=== PATIENT | male | born 1940 | race Asian ===

== ENCOUNTER 2017-04-04 03:48 | Emergency (ER) | payer OTHER ==
[~2017-04-04] VITALS: Ht 182.9 cm; Wt 88.0 kg
[~2017-04-04 03:48] MED LIST: ALPR0.5T99 PO; FENO50TA PO; HYDR10TA16 PO; LISI2.5T3 PO; METF850T PO; PROT40TA PO; REST30CA PO; SIMV80TA PO
[2017-04-04 03:50] VITALS: BP 135/65; PULSE 86; RESP 16; TEMP 98.8; O2SAT 96
[2017-04-04] MEDS ORDERED: OMEP20CA2 PO (04:12)
[2017-04-04] MEDS ORDERED: LISI-519 PO (04:13)
--- NOTE | 2017-04-04 04:28 | PD ---
HPI Chief Complaint: Fall Time Seen by Provider: 04:25 Travel History International Travel<30 days: No Contact w/Intl Traveler<30days: No Traveled to known affect area: No History of Present Illness HPI 77-year-old male presents to emergency department for evaluation of right hip pain. He states that he had a fall 8-9 days ago at home. He states that he did not have any significant pain at the time of the injury. Since then he has had progressive pain in his lower right SI joint into his right hip. He has had some pain in his right groin as well but he was told that this pain has been from bursitis after having bilateral hip replacement since by Dr. Menendez. He denies any acute bowel or bladder changes. She is pain is mild to moderate. Worse with movement and bending. He has an appointment to see his doctor later today but states that he wanted to come in tonight because he has had worsening pain to get an x-ray to rule out any hardware problems. No injury to his head, neck or back. PFSH Past Medical History Narrative Medical Diabetes, hypercholesterolemia, hypertension, stage IV kidney disease, gallstones Arthritis: Yes Blood Disorders: No Anxiety: Yes Cancer: No High Cholesterol: Yes Chemotherapy: No Diabetes: Yes (TAKES METFORMIN) Patient Takes Glucophage: Yes Diminished Hearing: No GERD: Yes Immune Disorder: No Neurologic: No Reproductive: No Respiratory: No Myocardial Infarction: Yes Radiation Therapy: No Tetanus Vaccination: Unknown Influenza Vaccination: Yes Past Surgical History Narrative Surgical Cholecystectomy Abdominal Surgery: Yes (CHOLECYSTECTOMY) Cholecystectomy: Yes Pacemaker: No Other Surgery: Yes (VEIN STRIPPING) Social History Alcohol Use: No Tobacco Use: No Substance Use: No Allergies-Medications (Allergen,Severity, Reaction): Coded Allergies: Latex (Verified Allergy, Mild, Itching, 04/04/17) Reported Meds & Prescriptions Reported Meds & Active Scripts Active Reported Lisinopril 5 Mg Tab 5 Mg PO DAILY Omeprazole 20 Mg Cap 20 Mg PO Simvastatin 80 mg (Simvastatin) 80 Mg Tab 40 Mg PO HS Tricor (Fenofibrate) 145 Mg Tab 160 Mg PO DAILY Lortab 10/500 (Acetaminophen/Hydrocodone Bitart) 10 Mg/500 Mg Tab 1 Tab PO Q4 PRN FOR PAIN Xanax (Alprazolam) 0.5 Mg Tab 0.5 Mg PO Q6 PRN Review of Systems Except as stated in HPI: all other systems reviewed are Neg Musculoskeletal: Positive: Arthralgias, Limited ROM, Pain (right hip) Physical Exam Narrative GENERAL: Well-developed, well-nourished in no apparent distress. Nontoxic appearing. HEAD: Normocephalic, atraumatic. EYES: Pupils equal round and reactive. Extraocular motions intact. No scleral icterus. No injection or drainage. ENT: Nose clear. Throat without erythema, tonsillar hypertrophy or exudate. Uvula midline. Airway patent. NECK: Trachea midline. Supple, nontender, moves head freely. No central bony tenderness or spasm. CARDIOVASCULAR: Regular rate and rhythm without murmurs, gallops, or rubs. RESPIRATORY: Clear to auscultation. Breath sounds equal bilaterally. No wheezes , rales, or rhonchi. GASTROINTESTINAL: Abdomen soft, non-tender, nondistended. No hepato-splenomegaly , or palpable masses. No guarding. EXTREMITIES: No clubbing, cyanosis, or edema. Patient has mild tenderness in the right SI joint into the right hip as well as over the greater trochanter. He has pain with internal/external rotation as well as abduction. There is no pain in the knee, ankle or foot. He has intact sensation with good distal pulses. Patient stands and ambulates freely. BACK: Nontender without deformity. No flank tenderness. NEUROLOGICAL: Awake, alert and oriented x 3 .Cranial nerves grossly intact. Motor and sensory grossly within normal limits. Normal speech. Data Data Last Documented VS Vital Signs Date Time Temp Pulse Resp B/P Pulse Ox O2 Delivery O2 Flow Rate FiO2 04/04/17 03:55 16 04/04/17 03:50 98.8 86 135/65 96 Room Air Orders Hip, Uni(Ap&Lat) W Ap Pelvis (04/04/17 04:00) MDM Medical Decision Making Medical Screen Exam Complete: Yes Emergency Medical Condition: Yes Medical Record Reviewed: Yes Interpretation(s) Right hip and pelvis: Bilateral hip replacements. No fracture or obvious hardware loosening. Differential Diagnosis MDM: High Differential diagnoses: Fracture, sprain, strain, dislocation, contusion, neurovascular injury Narrative Course X-rays are negative for bony injury. Patient states that he will talk to Dr. Callejas his afternoon as far as what he needs to take for his pain control. This is right hip pain, status post fall Diagnosis Primary Impression: right hip pain status post fall Patient Instructions: General Instructions Additional Instructions: Rest. Discussed with Dr. Callejas pain control. He may take your pain medication and muscle relaxer your prescribed earlier by Dr. Callejas. Return to the ER if any problems. Med/Other Pt SpecificInfo: No Change to Meds Disposition: 01 DISCHARGE HOME Condition: Stable Vin Ennis April 04, 2017 04:28
--- NOTE | 2017-04-04 04:40 | RADRPT ---
EXAM DATE/TIME: 04/04/2017 04:14 [facility] COMPARISON: No previous studies available for comparison. INDICATIONS : Right hip pain. MEDICAL HISTORY : None. SURGICAL HISTORY : Bilateral hip replacement. ENCOUNTER: Initial ACUITY: 1 week PAIN SCORE: 4/10 LOCATION: Right hip FINDINGS: AP views of the pelvis were obtained and demonstrate the patient is status post bilateral hip arthrop lasty. The femoral and acetabular components are intact. There is mild osteopenia with no acute fract ure or malalignment. There are radiation seed markers projected over the pelvis. CONCLUSION: 1. Status post bilateral hip arthroplasty with no acute fracture or malalignment. 2. Radiation seed markers project over the prostate. Damir Vieira MD on April 04, 2017 at 4:38 Board Certified Radiologist. This report was verified electronically.
== END 2017-04-04 06:18 | disposition home or self-care (01) ==
LOC: NEPK 03:48
DX: M25.551 Pain in right hip (principal); W19.XXXA Unspecified fall, initial encounter; Y92.009 Unspecified place in unspecified non-institutional (private) residence as the place of occurrence of the external cause
CPT/HCPCS: 73502; 99283

== ENCOUNTER 2017-05-28 10:45 | Observation (INO) | payer MEDICARE, OTHER ==
[~2017-05-28 10:45] MED LIST changes: +LISI-519 PO; -LISI2.5T3 PO; -METF850T PO; +OMEP20CA2 PO; -PROT40TA PO; -REST30CA PO
[2017-05-28 10:47] VITALS: BP 180/79; PULSE 87; RESP 17; TEMP 98.5; O2SAT 97
--- NOTE | 2017-05-28 11:01 | PD ---
HPI Chief Complaint: GI Complaint Time Seen by Provider: 11:01 Travel History International Travel<30 days: No Contact w/Intl Traveler<30days: No Traveled to known affect area: No History of Present Illness HPI 77-year-old male presents to the emergency Department with right flank pain for the past 24-48 hours. Patient states it started on his right posterior flank and is moved to the front. Patient has nausea but no vomiting. He was able to eat breakfast this morning. He states it is uncomfortable take a deep breath with increased discomfort in the right lower lung field/ upper abdominal on the right side. Patient states normal urination, with perhaps somewhat decreased flow. He denies dysuria. He denies fever, chills, or change in bowels. Patient did have his gallbladder out approximate 3 years ago. He has no cardiac history. Patient is not a significant drinker, having stopped drinking 20 years ago. Patient has no history of liver or pancreatic disease. Patient denies cough, shortness of breath, or specific chest pain. Pain is rated as a 10 over 10. It is not worse with food, but seems to be worse with movement. She has no history of kidney stones in the past. He is allergic to latex, but no medication allergies. PFSH Past Medical History Arthritis: Yes Blood Disorders: No Anxiety: Yes Cancer: No High Cholesterol: Yes Chemotherapy: No Diabetes: Yes Diminished Hearing: No GERD: Yes Immune Disorder: No Neurologic: No Reproductive: No Respiratory: No Myocardial Infarction: Yes Radiation Therapy: No Past Surgical History Abdominal Surgery: Yes (CHOLECYSTECTOMY) Cholecystectomy: Yes Pacemaker: No Other Surgery: Yes (VEIN STRIPPING) Social History Alcohol Use: No Tobacco Use: No Substance Use: No Allergies-Medications (Allergen,Severity, Reaction): Coded Allergies: Latex (Verified Allergy, Mild, Itching, 04/04/17) Reported Meds & Prescriptions Reported Meds & Active Scripts Active Reported Simvastatin 40 Mg Tab 40 Mg PO HS Lortab (Hydrocodone-Acetaminophen) 10-325 Mg Tab 1 Tab PO Q4H PRN Alprazolam 0.5 Mg Tab 0.5 Mg PO Q6H PRN Omeprazole 20 Mg Cap 20 Mg PO Review of Systems Except as stated in HPI: all other systems reviewed are Neg General / Constitutional: No: Fever, Chills Eyes: No: Visual changes HENT: No: Headaches Cardiovascular: No: Chest Pain or Discomfort, Palpitations, Irregular Rhythm, Tachycardia, Diaphoresis, Dyspnea on exertion Respiratory: No: Cough, Shortness of Breath, Wheezing Gastrointestinal: Positive: Nausea, Abdominal Pain, No: Vomiting, Diarrhea Genitourinary: Positive: Decreased Urinary Output, No: Urgency, Frequency, Dysuria Musculoskeletal: No: Pain Skin: No Rash Neurologic: No: Weakness Psychiatric: No: Depression Endocrine: No: Polydipsia Hematologic/Lymphatic: No: Easy Bruising Physical Exam Narrative GENERAL: Patient appears in mild to moderate distress. SKIN: Warm and dry. Normal color. Normal turgor. HEAD: Atraumatic. Normocephalic. EYES: Pupils equal and round. No scleral icterus. No injection or drainage. ENT: No nasal bleeding or discharge. Mucous membranes pink and moist. Pharynx is clear. Airway is patent. NECK: Trachea midline. Supple and nontender. Range of motion is full. CARDIOVASCULAR: Regular rate and rhythm. RESPIRATORY: No accessory muscle use. Clear to auscultation. Breath sounds equal bilaterally. GASTROINTESTINAL: Abdomen soft, mild nonspecific right upper quadrant tenderness with palpation. No point tenderness, nondistended. Hepatic and splenic margins not palpable. Patient has mild to moderate right CVA tenderness with percussion. MUSCULOSKELETAL: Extremities without clubbing, cyanosis, or edema. No obvious deformities. NEUROLOGICAL: Awake and alert. No obvious cranial nerve deficits. Motor grossly within normal limits. Five out of 5 muscle strength in the arms and legs. Normal speech. PSYCHIATRIC: Appropriate mood and affect; insight and judgment normal. Data Data Last Documented VS Vital Signs Date Time Temp Pulse Resp B/P Pulse Ox O2 Delivery O2 Flow Rate FiO2 05/28/17 12:38 98.5 113 22 137/81 99 Room Air Orders Basic Metabolic Panel (Bmp) (05/28/17 11:06) Complete Blood Count With Diff (05/28/17 11:06) Comprehensive Metabolic Panel (05/28/17 11:06) Lipase (05/28/17 11:06) Lactic Acid (05/28/17 11:06) Prothrombin Time / Inr (Pt) (05/28/17 11:06) Act Partial Throm Time (Ptt) (05/28/17 11:06) Urinalysis - C+S If Indicated (05/28/17 11:06) Ct Abd/Pel W/O Iv Contrast (05/28/17 11:06) Iv Access Insert/Monitor (05/28/17 11:06) Ecg Monitoring (05/28/17 11:06) Oximetry (05/28/17 11:06) NPO (05/28/17 11:06) Ondansetron Inj (Zofran Inj) (05/28/17 11:15) Sodium Chlor 0.9% 1000 Ml Inj (Ns 1000 M (05/28/17 11:06) Sodium Chloride 0.9% Flush (Ns Flush) (05/28/17 11:15) Electrocardiogram (05/28/17 11:06) Chest, Single Ap (05/28/17 11:06) Morphine Inj (Morphine Inj) (05/28/17 11:30) Ckmb (Isoenzyme) Profile (05/28/17 12:28) Troponin I (05/28/17 12:28) Hydromorphone Pf Inj (Dilaudid Pf Inj) (05/28/17 12:45) CKMB (05/28/17 11:45) CKMB% (05/28/17 11:45) Admit Order (Ed Use Only) (05/28/17 12:55) Consult Gastroenterology (05/28/17 ) Labs Laboratory Tests Test 05/28/17 05/28/17 11:45 12:30 White Blood Count 7.8 TH/MM3 Red Blood Count 5.13 MIL/MM3 Hemoglobin 14.2 GM/DL Hematocrit 43.0 % Mean Corpuscular Volume 83.9 FL Mean Corpuscular Hemoglobin 27.6 PG Mean Corpuscular Hemoglobin 32.9 % Concent Red Cell Distribution Width 14.4 % Platelet Count 195 TH/MM3 Mean Platelet Volume 7.1 FL Neutrophils (%) (Auto) 76.1 % Lymphocytes (%) (Auto) 17.9 % Monocytes (%) (Auto) 4.2 % Eosinophils (%) (Auto) 0.8 % Basophils (%) (Auto) 1.0 % Neutrophils # (Auto) 6.0 TH/MM3 Lymphocytes # (Auto) 1.4 TH/MM3 Monocytes # (Auto) 0.3 TH/MM3 Eosinophils # (Auto) 0.1 TH/MM3 Basophils # (Auto) 0.1 TH/MM3 CBC Comment AUTO DIFF Differential Comment AUTO DIFF CONFIRMED Platelet Estimate NORMAL Platelet Morphology Comment NORMAL Red Cell Morphology Comment NORMAL Prothrombin Time 10.9 SEC Prothromb Time International 1.0 RATIO Ratio Activated Partial 26.8 SEC Thromboplast Time Sodium Level 137 MEQ/L Potassium Level 4.3 MEQ/L Chloride Level 104 MEQ/L Carbon Dioxide Level 26.5 MEQ/L Anion Gap 7 MEQ/L Blood Urea Nitrogen 18 MG/DL Creatinine 1.79 MG/DL Estimat Glomerular Filtration 37 ML/MIN Rate Random Glucose 200 MG/DL Lactic Acid Level 2.6 mmol/L Calcium Level 9.2 MG/DL Total Bilirubin 1.5 MG/DL Aspartate Amino Transf 195 U/L (AST/SGOT) Alanine Aminotransferase 124 U/L (ALT/SGPT) Alkaline Phosphatase 102 U/L Total Creatine Kinase 104 U/L Creatine Kinase MB 1.6 NG/ML Troponin I LESS THAN 0.02 NG/ML Total Protein 7.8 GM/DL Albumin 3.4 GM/DL Lipase 427 U/L Urine Color YELLOW Urine Turbidity CLEAR Urine pH 5.5 Urine Specific [place] 1.011 Urine Protein 30 mg/dL Urine Glucose (UA) 70 mg/dL Urine Ketones NEG mg/dL Urine Occult Blood SMALL Urine Nitrite NEG Urine Bilirubin NEG Urine Urobilinogen LESS THAN 2.0 MG/DL Urine Leukocyte Esterase NEG Urine RBC 2 /hpf Urine WBC LESS THAN 1 /hpf Urine Squamous Epithelial <1 /hpf Cells Microscopic Urinalysis Comment CULT NOT INDICATED MDM Medical Decision Making Medical Screen Exam Complete: Yes Emergency Medical Condition: Yes Differential Diagnosis Right upper abdomen quadrant tenderness. Cardiac syndrome. Pancreatitis. Hepatitis. Biliary colic. Pneumonia. Narrative Course Patient is medically stable at time of exam. EKG and chest x-ray are ordered. Labs ordered including CBC, CMP, lipase, lactic acid, urinalysis, PT PTT and INR , cardiac panel. IV access is obtained patient is given 4 mg morphine IV as well as 4 mg Zofran IV. Patient is given thousand mL normal saline bolus. CT of the abdomen without oral or IV contrast is ordered. Chest x-ray was unremarkable. CT shows no acute findings per radiologist. Labs however show no significant white count. Coags are normal. Chemistries however show creatinine of 1.79 with an estimated GFR of 37 which is typical for the patient looking back. Lactic acid is elevated at 2.6 with a total bilirubin of 1.5. AST 195, 124. Lipase is elevated at 427. Patient is given 1 mg hydromorphone IV for pain after CT. Patient is discussed with Dr. Dumont who feels the patient would benefit from admission and GI consult. It is thought that he may need an ERCP. Call was placed to the hospitalist and the patient was discussed with Dr. Jenkins , who agreed to admit the patient. Consult was placed with the hop farmer. Diagnosis Primary Impression: Right upper quadrant pain Additional Impressions: Elevated LFTs Elevated lipase Admitting Information Admitting Physician Requests: Admit Condition: Stable Ugo Neumann May 28, 2017 11:01
[2017-05-28] MEDS ORDERED: SODIUM CHLOR 0.9% 1000 ML INJ 1,000 ML IV SCH (11:06)
[2017-05-28] MEDS ORDERED: SODIUM CHLORIDE 0.9% FLUSH 10 ML FLUSH IV FLUSH PRN ×2 (11:15→13:15)
[2017-05-28] MEDS ORDERED: ONDANSETRON HCL 4 MG/2 ML VIAL IVP ONE (11:15)
[2017-05-28] MEDS ORDERED: MORPHINE SULFATE 4 MG/ML INJ IV PUSH ONE (11:15)
--- NOTE | 2017-05-28 11:25 | RADRPT ---
EXAM DATE/TIME: 05/28/2017 11:04 [facility] COMPARISON: CHEST SINGLE AP, November 22, 2013, 12:44. INDICATIONS : Chest pain MEDICAL HISTORY : Diabetes mellitus type II. SURGICAL HISTORY : None. ENCOUNTER: Initial ACUITY: 1 day PAIN SCORE: 6/10 LOCATION: Bilateral chest FINDINGS: A single view of the chest demonstrates the lungs to be symmetrically aerated without evidence of mas s, infiltrate or effusion. The cardiomediastinal contours are unremarkable. Osseous structures are intact. CONCLUSION: Normal examination. Yayo Freeman MD on May 28, 2017 at 11:24 Board Certified Radiologist. This report was verified electronically.
[2017-05-28] MEDS ORDERED: MORPHINE SULFATE 8 MG/ML INJ IV PUSH ONE (11:30)
[2017-05-28] MEDS ORDERED: ALPR0.5T3 PO (11:59)
[2017-05-28] MEDS ORDERED: SIMV40TA PO (11:59)
[2017-05-28] MEDS ORDERED: HYDR-3535 PO (11:59)
[2017-05-28 12:08] LABS: BASOPHIL # 0.1 TH/MM3 (0-0.2); EOSINOPHIL # 0.1 TH/MM3 (0-0.4); EOSINOPHIL % 0.8 % (0.0-4.0); LYMPH % 17.9 % (9.0-44.0); LYMPHOCYTE # 1.4 TH/MM3 (1.0-4.8); MEAN CELL VOLUME 83.9 FL (80.0-100.0); MEAN CORPUSCULAR HEMOGLOBIN 27.6 PG (27.0-34.0); MEAN CORPUSCULAR HGB CONC 32.9 % (32.0-36.0); MONO % 4.2 % (0.0-8.0); NEUT % 76.1 % (16.0-70.0); PLATELET COUNT 195 TH/MM3 (150-450); RED BLOOD COUNT 5.13 MIL/MM3 (4.50-5.90); RED CELL DISTRIBUTION WIDTH 14.4 % (11.6-17.2); WHITE BLOOD COUNT 7.8 TH/MM3 (4.0-11.0)
[2017-05-28 12:16] LABS: APTT (PATIENT) 26.8 SEC (24.3-30.1); PROTHROMBIN TIME - PATIENT 10.9 SEC (9.8-11.6)
[2017-05-28 12:17] LABS: HEMO FLAGS AUTO DIFF
[2017-05-28 12:23] LABS: ANION GAP 7 MEQ/L (5-15); AST (GOT) 195 U/L (15-37); BICARBONATE 26.5 MEQ/L (21.0-32.0); BLOOD UREA NITROGEN 18 MG/DL (7-18); CHLORIDE 104 MEQ/L (98-107); GLOMERULAR FILTRATION RATE 37 ML/MIN (>89); POTASSIUM 4.3 MEQ/L (3.5-5.1); SODIUM (NA) 137 MEQ/L (136-145)
[2017-05-28 12:24] LABS: ALT (GPT) 124 U/L (12-78)
--- NOTE | 2017-05-28 12:24 | RADRPT ---
EXAM DATE/TIME: 05/28/2017 12:05 [facility] COMPARISON: No previous studies available for comparison. INDICATIONS : Right flank pain today. ORAL CONTRAST: No oral contrast ingested. RADIATION DOSE: 16.14 CTDIvol (mGy) MEDICAL HISTORY : diabetes SURGICAL HISTORY : Cholecystectomy. ENCOUNTER: Initial ACUITY: 1 day PAIN SCALE: 7/10 LOCATION: Right flank TECHNIQUE: Volumetric scanning of the abdomen and pelvis was performed. Using automated exposure control and ad justment of the mA and/or kV according to patient size, radiation dose was kept as low as reasonably achievable to obtain optimal diagnostic quality images. DICOM format image data is available electro nically for review and comparison. FINDINGS: LOWER LUNGS: Minimal posterior bibasilar atelectatic changes or scarring. No confluent infiltrate LIVER: Homogeneous density without lesion. There is no dilation of the biliary tree. Gallbladder is not vis ualized characteristic is a reported history of cholecystectomy. SPLEEN: Normal size without lesion. PANCREAS: Within normal limits. KIDNEYS: Normal in size and shape. There is no mass, stone, or hydronephrosis. ADRENAL GLANDS: Within normal limits. VASCULAR: There is no aortic aneurysm. BOWEL/MESENTERY: The stomach, small bowel, and colon demonstrate no acute abnormality. There is no free intraperitone al air or fluid. Mild diverticular disease of the sigmoid without diverticulitis. A small appendicoli th is identified at the appendiceal tip. There is no enlargement or periappendiceal stranding, howeve r. ABDOMINAL WALL: Within normal limits. RETROPERITONEUM: There is no lymphadenopathy. BLADDER: No wall thickening or mass. REPRODUCTIVE: A few prostatic seeds are seen in the prostate bed. INGUINAL: There is no lymphadenopathy or hernia. MUSCULOSKELETAL: Bilateral total hip arthroplasties. Degenerative changes in the thoracolumbar spine. Otherwise intact . CONCLUSION: 1. Mild diverticular disease of the sigmoid without diverticulitis. 2. Punctate appendicolith at the appendiceal tip with no CT findings of acute appendicitis. 3. Postsurgical changes including cholecystectomy and probable prostatic seeds. 4. Otherwise, no acute intraperitoneal or pelvic process to explain current clinical symptoms. Nish Orr MD on May 28, 2017 at 12:18 Board Certified Radiologist. This report was verified electronically.
[2017-05-28 12:26] LABS: ALKALINE PHOSPHATASE 102 U/L (45-117); TOTAL BILIRUBIN ADULT 1.5 MG/DL (0.2-1.0)
[2017-05-28 12:38] VITALS: BP 137/81; PULSE 113; RESP 22; TEMP 98.5; O2SAT 99
[2017-05-28 12:42] LABS: PLATELET ESTIMATE SMEAR NORMAL (NORMAL); PLATELET MORPHOLOGY NORMAL (NORMAL); SCAN/DIFF AUTO DIFF CONFIRMED
[2017-05-28] MEDS ORDERED: HYDROmorphone HCL PF 1 MG/ML VIAL IV PUSH ONE (12:45)
[2017-05-28 12:46] LABS: CREATINE KINASE 104 U/L (39-308)
[2017-05-28 12:52] LABS: BLOOD, URINE SMALL (NEG); COMMENT (UR) CULT NOT INDICATED; CULTURE IF INDICATED CULT NOT INDICATED; GLUCOSE,URINE 70 mg/dL (NEG); KETONE, URINE NEG (NEG); NITRITE,URINE NEG (NEG); PH, URINE 5.5 (5.0-8.5); SQUAMOUS EPITHELIAL CELL URINE <1 /hpf (0-5); URINE COLOR YELLOW (YELLW/STRAW)
[2017-05-28 12:59] LABS: CKMB 1.6 NG/ML (0.5-3.6)
[2017-05-28] MEDS ORDERED: MAGNESIUM HYDROXIDE SUSP 30 ML CUP PO PRN (13:15)
[2017-05-28] MEDS ORDERED: ACETAMINOPHEN 325 MG TAB PO PRN (13:15)
[2017-05-28] MEDS ORDERED: NALOXONE HCL 0.4 MG/ML AMP IV PRN (13:15)
[2017-05-28 14:12] LABS: AMPHETAMINE, URINE NEG (NEG); BARBITURATES, URINE NEG (NEG); COCAINE, URINE NEG (NEG)
--- NOTE | 2017-05-28 15:13 | HHI.HP ---
HPI Service [facility] Primary Care Physician Nancy Callejas MD Admission Diagnosis Abdominal Pain/Increased LFT'S/Increased Lipase Diagnoses: (1) Transaminitis (2) Hyperbilirubinemia (3) Right upper quadrant pain (4) Elevated lipase (5) Acute worsening of stage 3 chronic kidney disease (6) DM (diabetes mellitus) (7) HTN (hypertension) Chief Complaint: Right sided abdominal pain and generalized weakness Travel History International Travel<30 Days: No Contact w/Intl Traveler <30 Da: No Traveled to Known Affected Are: No History of Present Illness 77-year-old male for past medical history of prostate cancer, hypertension, hyperlipidemia, diabetes type 2 presented to the ED with acute worsening right sided flank pain rated 10/10 in intensity lasting up to 15 minutes and occasionally associated with nausea without any emesis. Patient states he first noticed the pain about 3 weeks ago, and it will come and go however worse this morning when he woke up. He recall an initial fall 3 weeks ago. Patient was seen by his PCP last week with secondary to a second fall episode advised patient to come off metformin. Patient also is no longer currently taking any BP med. Patient reports associated generalized weakness 2 weeks. He also noted worsening lightheadedness month denies any chest pain. He denies any hemoptysis, hematuria or GI bleed. Chest x-ray in the ED was negative and abdomen/pelvic CT could not explain patient's abdominal pain. Abnormal labs include elevated LFTs, T bili, lactic acid and lipase as well as creatinine. Review of Systems Except as stated in HPI: all other systems reviewed are Neg Past Family Social History Past Medical History 1. arthritis. 2. Anxiety. 3. Hypercholesteremia. 4. Diabetes. 5. Gastroesophageal reflux disease. 6. coronary artery disease. 7. history of prostate cancer. Past Surgical History left total hip arthroplasty Open Cholecystectomy vein stripping Reported Medications Simvastatin 40 Mg Tab 40 Mg PO HS Lortab (Hydrocodone-Acetaminophen) 10-325 Mg Tab 1 Tab PO Q4H PRN Alprazolam 0.5 Mg Tab 0.5 Mg PO Q6H PRN Omeprazole 20 Mg Cap 20 Mg PO Allergies: Coded Allergies: Latex (Verified Allergy, Mild, Itching, 04/04/17) Family History Mother had diabetes type 2 Social History Alcohol Use: No 30 years Tobacco Use: No 25 years Substance Use: No Physical Exam Vital Signs Vital Signs Date Time Temp Pulse Resp B/P Pulse Ox O2 Delivery O2 Flow Rate FiO2 05/28/17 12:38 98.5 113 22 137/81 99 Room Air 05/28/17 10:47 98.5 87 17 180/79 97 Physical Exam GENERAL: This is a well-nourished, well-developed patient, in no apparent distress. SKIN: No rashes, ecchymoses or lesions. Cool and dry. HEAD: Atraumatic. Normocephalic. No temporal or scalp tenderness. EYES: Pupils equal round and reactive. Extraocular motions intact. No scleral icterus. No injection or drainage. ENT: Nose without bleeding, purulent drainage or septal hematoma. Throat without erythema, tonsillar hypertrophy or exudate. Uvula midline. Airway patent. NECK: Trachea midline. No JVD or lymphadenopathy. Supple, nontender, no meningeal signs. CARDIOVASCULAR: Regular rate and rhythm without murmurs, gallops, or rubs. RESPIRATORY: Clear to auscultation. Breath sounds equal bilaterally. No wheezes , rales, or rhonchi. GASTROINTESTINAL: Abdomen soft, non-tender, nondistended. No hepato-splenomegaly , or palpable masses. No guarding. MUSCULOSKELETAL: Extremities without clubbing, cyanosis, or edema. No joint tenderness, effusion, or edema noted. No calf tenderness. Negative Homans sign bilaterally. NEUROLOGICAL: Awake and alert. Cranial nerves II through XII intact. Motor and sensory grossly within normal limits. Five out of 5 muscle strength in all muscle groups. Normal speech. Laboratory Laboratory Tests Test 05/28/17 05/28/17 11:45 12:30 White Blood Count 7.8 Red Blood Count 5.13 Hemoglobin 14.2 Hematocrit 43.0 Mean Corpuscular Volume 83.9 Mean Corpuscular Hemoglobin 27.6 Mean Corpuscular Hemoglobin 32.9 Concent Red Cell Distribution Width 14.4 Platelet Count 195 Mean Platelet Volume 7.1 Neutrophils (%) (Auto) 76.1 Lymphocytes (%) (Auto) 17.9 Monocytes (%) (Auto) 4.2 Eosinophils (%) (Auto) 0.8 Basophils (%) (Auto) 1.0 Neutrophils # (Auto) 6.0 Lymphocytes # (Auto) 1.4 Monocytes # (Auto) 0.3 Eosinophils # (Auto) 0.1 Basophils # (Auto) 0.1 CBC Comment AUTO DIFF Differential Comment AUTO DIFF CONFIRMED Platelet Estimate NORMAL Platelet Morphology Comment NORMAL Red Cell Morphology Comment NORMAL Prothrombin Time 10.9 Prothromb Time International 1.0 Ratio Activated Partial 26.8 Thromboplast Time Sodium Level 137 Potassium Level 4.3 Chloride Level 104 Carbon Dioxide Level 26.5 Anion Gap 7 Blood Urea Nitrogen 18 Creatinine 1.79 Estimat Glomerular Filtration 37 Rate Random Glucose 200 Lactic Acid Level 2.6 Calcium Level 9.2 Total Bilirubin 1.5 Aspartate Amino Transf 195 (AST/SGOT) Alanine Aminotransferase 124 (ALT/SGPT) Alkaline Phosphatase 102 Total Creatine Kinase 104 Creatine Kinase MB 1.6 Troponin I LESS THAN 0.02 Total Protein 7.8 Albumin 3.4 Lipase 427 Urine Color YELLOW Urine Turbidity CLEAR Urine pH 5.5 Urine Specific [place] 1.011 Urine Protein 30 Urine Glucose (UA) 70 Urine Ketones NEG Urine Occult Blood SMALL Urine Nitrite NEG Urine Bilirubin NEG Urine Urobilinogen LESS THAN 2.0 Urine Leukocyte Esterase NEG Urine RBC 2 Urine WBC LESS THAN 1 Urine Squamous Epithelial <1 Cells Microscopic Urinalysis Comment CULT NOT INDICATED Urine Opiates Screen POS Urine Barbiturates Screen NEG Urine Amphetamines Screen NEG Urine Benzodiazepines Screen POS Urine Cocaine Screen NEG Urine Cannabinoids Screen NEG Ethyl Alcohol Level LESS THAN 3 Result Diagram: 05/28/17 1145 05/28/17 1145 Imaging Last Impressions Chest X-Ray 05/28/17 1106 Signed Impressions: Service Date/Time: Sunday, May 28, 2017 11:04 - CONCLUSION: Normal examination. Yayo Freeman MD Abdomen/Pelvis CT 05/28/17 1106 Signed Impressions: Service Date/Time: Sunday, May 28, 2017 12:05 - CONCLUSION: 1. Mild diverticular disease of the sigmoid without diverticulitis. 2. Punctate appendicolith at the appendiceal tip with no CT findings of acute appendicitis. 3. Postsurgical changes including cholecystectomy and probable prostatic seeds. 4. Otherwise, no acute intraperitoneal or pelvic process to explain current clinical symptoms. Nish Orr MD Assessment and Plan Problem List: (1) Transaminitis ICD Code: R74.0 Status: Acute (2) Hyperbilirubinemia ICD Code: E80.6 Status: Acute (3) Acute worsening of stage 3 chronic kidney disease ICD Code: N18.3 Status: Acute (4) Elevated lipase ICD Code: R74.8 Status: Acute (5) Right upper quadrant pain ICD Code: R10.11 Status: Acute (6) DM (diabetes mellitus) ICD Code: E11.9 Status: Chronic (7) HTN (hypertension) ICD Code: I10 Status: Chronic (8) Hyperlipidemia ICD Code: E78.5 Status: Chronic Assessment and Plan 77-year-old man with Right sided abdominal pain CT abdomen noted and reviewed by me with mild diverticular disease of the sigmoid colon without diverticulitis, and no acute intraperitoneal or pelvic process to explain current clinical symptoms. Chest x-ray noted and reviewed by me without any evidence of acute pulmonary disease or fractureS LFTs and lipase mildly elevated Patient with previous open cholecystectomy Parenteral pain management accordingly Transaminitis Check hepatitis profile, UDS, alcohol level Hold statin which may be the culprit. Monitor LFTs Hyperbilirubinemia Patient status post open cholecystectomy years ago No evidence of CBD, however GI has been consulted Lactic acidosis Secondary to dehydration Repeat lactic acid Acute on chronic kidney disease stage III Gentle IV fluid hydration Monitor BUN and creatinine and avoid all nephrotoxic drugs Diabetes type 2 Currently not on any therapy per patient as metformin was discontinued by his PCP Check hemoglobin A1c Start insulin sliding scale with fingerstick blood glucose monitoring Elevated lipase CT abdomen without any evidence of pancreatitis Continue with IV fluid hydration Monitor lipase Global weakness PT consult to treat and eval DVT prophylaxis Bilateral SCDs Code Status Full code Discussed Condition With Patient, ED Javy Ashley MD May 28, 2017 15:13
[2017-05-28] MEDS ORDERED: GLUCAGON 1 MG/ML VIAL OTHER PRN (15:15)
[2017-05-28] MEDS ORDERED: DEXTROSE 50% IN WATER 50 ML VIAL(D50) IV PRN (15:15)
[2017-05-28] MEDS ORDERED: ENALAPRILAT 1.25 MG/ML VIAL IV PUSH PRN (15:30)
[2017-05-28 16:00] VITALS: BP 109/64; PULSE 106; RESP 18; TEMP 99.6; O2SAT 95
[2017-05-28] MEDS: INSULIN ASPART SUPPLEMENTAL SCALE SQ SCH ×2 (16:00→20:30)
[2017-05-28 20:20] VITALS: BP 116/63; PULSE 92; RESP 17; TEMP 99.3; O2SAT 97
[2017-05-28] MEDS: SODIUM CHLOR 0.9% 1000 ML INJ 1,000 ML IV SCH (20:50)
[2017-05-28] MEDS: SODIUM CHLORIDE 0.9% FLUSH 10 ML FLUSH IV FLUSH SCH (21:00)
[2017-05-28] MEDS: ALPRAZolam 0.5 MG TAB PO PRN (21:47)
[2017-05-29 00:20] VITALS: BP 115/60; PULSE 94; RESP 18; TEMP 99.4; O2SAT 97
[2017-05-29] MEDS: TEMAZEPAM 15 MG CAP PO PRN (00:26)
[2017-05-29] MEDS: ACETAMINOPHEN 325 MG TAB PO PRN ×2 (03:04→09:29)
[2017-05-29 04:20] VITALS: BP 117/58; PULSE 86; RESP 18; TEMP 99.4; O2SAT 95
[2017-05-29] MEDS: SODIUM CHLOR 0.9% 1000 ML INJ 1,000 ML IV SCH ×2 (05:33→21:37)
[2017-05-29] MEDS: INSULIN ASPART SUPPLEMENTAL SCALE SQ SCH ×4 (07:00→21:37)
[2017-05-29 07:41] LABS: BASOPHIL % 0.1 % (0.0-2.0); EOSINOPHIL # 0.1 TH/MM3 (0-0.4); EOSINOPHIL % 0.8 % (0.0-4.0); HEMATOCRIT 37.6 % (39.0-51.0); HEMO FLAGS DIFF FINAL; LYMPH % 12.3 % (9.0-44.0); LYMPHOCYTE # 1.3 TH/MM3 (1.0-4.8); MEAN CELL VOLUME 82.4 FL (80.0-100.0); MEAN CORPUSCULAR HEMOGLOBIN 27.9 PG (27.0-34.0); MEAN CORPUSCULAR HGB CONC 33.9 % (32.0-36.0); MONO % 8.6 % (0.0-8.0); NEUT % 78.2 % (16.0-70.0); PLATELET COUNT 154 TH/MM3 (150-450); RED BLOOD COUNT 4.57 MIL/MM3 (4.50-5.90); RED CELL DISTRIBUTION WIDTH 14.5 % (11.6-17.2); WHITE BLOOD COUNT 10.3 TH/MM3 (4.0-11.0)
[2017-05-29 08:00] VITALS: BP 121/63; PULSE 68; RESP 18; TEMP 97.5; O2SAT 97
[2017-05-29 08:35] LABS: ALKALINE PHOSPHATASE 90 U/L (45-117); ALT (GPT) 162 U/L (12-78); ANION GAP 7 MEQ/L (5-15); AST (GOT) 139 U/L (15-37); BLOOD UREA NITROGEN 15 MG/DL (7-18); CHLORIDE 105 MEQ/L (98-107); GLOMERULAR FILTRATION RATE 39 ML/MIN (>89); POTASSIUM 4.2 MEQ/L (3.5-5.1); SODIUM (NA) 137 MEQ/L (136-145)
[2017-05-29] MEDS: SODIUM CHLORIDE 0.9% FLUSH 10 ML FLUSH IV FLUSH SCH ×2 (09:00→21:37)
[2017-05-29] MEDS: ONDANSETRON HCL 4 MG/2 ML VIAL IVP PRN ×2 (09:30→17:08)
--- NOTE | 2017-05-29 09:43 | RADRPT ---
EXAM DATE/TIME: 05/29/2017 07:56 [facility] COMPARISON: No previous studies available for comparison. INDICATIONS : Increased lab values. MEDICAL HISTORY : Hypercholesterolemia. Gastroesophageal reflux disease. Myocardial infarction. Diabetes. Anxiety. Arth ritis. SURGICAL HISTORY : Cholecystectomy. Bilateral hip replacement. Vein stripping. ENCOUNTER: Initial ACUITY: 2 days PAIN SCORE: 3/10 LOCATION: Abdomen. MEASUREMENTS: LIVER: 16.0 cm length COMMON DUCT: 9 mm RIGHT KIDNEY: 10.3 x 5.2 x 5.6 cm SPLEEN: 8.4 cm length FINDINGS: LIVER: Mild to moderate diffuse intrahepatic ductal dilatation. Diffusely hyperechoic hepatic echogenicity w ithout focal mass or evidence of volume loss. COMMON DUCT: Common bile duct is mildly prominent measuring up to 9 mm. GALLBLADDER: Surgical absence. PANCREAS: The visualized portions are within normal limits. RIGHT KIDNEY: No hydronephrosis, stone or mass. SPLEEN: No focal lesion. CONCLUSION: 1. Status post cholecystectomy with mild extra and mild to moderate intrahepatic ductal dilatation. D uctal dilatation may be noted following cholecystectomy due to reservoir effect. The degree of intrah epatic ductal dilatation appears slightly out of proportion than expected. Further evaluation may be performed with CT exam, MRCP or ERCP as clinically warranted. 2. Mild hepatomegaly and increased hepatic echogenicity consistent with hepatic steatosis. Jules Chavez MD on May 29, 2017 at 9:36 Board Certified Radiologist. This report was verified electronically.
[2017-05-29] MEDS ORDERED: PNEUMOCOCCAL POLYVALENT INJ 25 MCG/0.5 ML SYR IM ONE (10:00)
[2017-05-29] MEDS: ALPRAZolam 0.5 MG TAB PO PRN ×2 (11:03→21:37)
[2017-05-29 12:00] VITALS: BP 139/70; PULSE 80; RESP 18; TEMP 97.6; O2SAT 97
--- NOTE | 2017-05-29 13:27 | EKG ---
Date Performed: 05/28/2017 Time Performed: 11:25:46 PTAGE: 77 years EKG: Sinus rhythm POSSIBLE RIGHT VENTRICULAR CONDUCTION DELAY BORDERLINE ECG Compared to prior tracing no significant change PREVIOUS TRACING : 11/22/2013 13.52 DOCTOR: Dallas Danielle Interpretating Date/Time 05/29/2017 13:24:00
--- NOTE | 2017-05-29 13:31 | HHI.PR ---
Subjective Remarks Follow-up abdominal pain 05/29/17-patient seen and examined, complained of right sided abdominal pain associated with nausea without any emesis. Currently afebrile and denies any shortness of breath Objective Vitals Vital Signs Date Time Temp Pulse Resp B/P Pulse Ox O2 Delivery O2 Flow Rate FiO2 05/29/17 12:00 97.6 80 18 139/70 97 05/29/17 08:00 97.5 68 18 121/63 97 05/29/17 04:20 99.4 86 18 117/58 95 05/29/17 00:20 99.4 94 18 115/60 97 05/28/17 20:20 99.3 92 17 116/63 97 05/28/17 16:00 99.6 106 18 109/64 95 I/O 05/28/17 05/28/17 05/28/17 05/29/17 05/29/17 05/29/17 07:00 15:00 23:00 07:00 15:00 23:00 Intake Total 240 ml 120 ml Output Total 400 ml Balance -160 ml 120 ml Intake Oral 240 ml 120 ml Output Urine Total 400 ml # Voids 1 2 # Bowel Movements 0 0 Result Diagram: 05/29/17 0659 05/29/17 0659 Imaging Last Impressions Liver Ultrasound 05/29/17 0000 Signed Impressions: Service Date/Time: Monday, May 29, 2017 07:56 - CONCLUSION: 1. Status post cholecystectomy with mild extra and mild to moderate intrahepatic ductal dilatation. Ductal dilatation may be noted following cholecystectomy due to reservoir effect. The degree of intrahepatic ductal dilatation appears slightly out of proportion than expected. Further evaluation may be performed with CT exam, MRCP or ERCP as clinically warranted. 2. Mild hepatomegaly and increased hepatic echogenicity consistent with hepatic steatosis. Jules Chavez MD Chest X-Ray 05/28/17 110 Signed Impressions: Service Date/Time: Sunday, May 28, 2017 11:04 - CONCLUSION: Normal examination. Yayo Freeman MD Abdomen/Pelvis CT 05/28/171105 Signed Impressions: Service Date/Time: Sunday, May 28, 2017 12:05 - CONCLUSION: 1. Mild diverticular disease of the sigmoid without diverticulitis. 2. Punctate appendicolith at the appendiceal tip with no CT findings of acute appendicitis. 3. Postsurgical changes including cholecystectomy and probable prostatic seeds. 4. Otherwise, no acute intraperitoneal or pelvic process to explain current clinical symptoms. Nish Orr MD Objective Remarks GENERAL: NAD SKIN: Warm and dry. HEAD: Normocephalic. EYES: No scleral icterus. No injection or drainage. NECK: Supple, trachea midline. No JVD or lymphadenopathy. CARDIOVASCULAR: Regular rate and rhythm without murmurs, gallops, or rubs. RESPIRATORY: Breath sounds equal bilaterally. No accessory muscle use. GASTROINTESTINAL: Abdomen soft, mildly tender RUQ, nondistended. MUSCULOSKELETAL: No cyanosis, or edema. BACK: Nontender without obvious deformity. No CVA tenderness. A/P Problem List: (1) Transaminitis ICD Code: R74.0 Status: Acute (2) Hyperbilirubinemia ICD Code: E80.6 Status: Acute (3) Right upper quadrant pain ICD Code: R10.11 Status: Acute (4) Elevated lipase ICD Code: R74.8 Status: Acute (5) Acute worsening of stage 3 chronic kidney disease ICD Code: N18.3 Status: Acute (6) DM (diabetes mellitus) ICD Code: E11.9 Status: Chronic (7) HTN (hypertension) ICD Code: I10 Status: Chronic Assessment and Plan 77-year-old man with Right sided abdominal pain CT abdomen with mild diverticular disease of the sigmoid colon without diverticulitis, and no acute intraperitoneal or pelvic process to explain current clinical symptoms. Chest x-ray without any evidence of acute pulmonary disease or fracture Liver ultrasound with finding of intrahepatic dilatation-patient may need ERCP GI consultation pending LFTs and lipase mildly elevated Patient with previous open cholecystectomy Parenteral pain management accordingly Transaminitis hepatitis profile negative, UDS, alcohol level Hold statin which may be the culprit. Monitor LFTs Hyperbilirubinemia Patient status post open cholecystectomy years ago No evidence of CBD, however GI has been consulted Lactic acidosis Secondary to dehydration Acute on chronic kidney disease stage III Gentle IV fluid hydration Monitor BUN and creatinine and avoid all nephrotoxic drugs Diabetes type 2 Currently not on any therapy per patient as metformin was discontinued by his PCP hemoglobin A1c pending Continue insulin sliding scale with fingerstick blood glucose monitoring Elevated lipase-resolved CT abdomen without any evidence of pancreatitis Continue with IV fluid hydration Global weakness PT consult to treat and eval DVT prophylaxis Bilateral SCD Javy Pickett MD May 29, 2017 13:31
--- NOTE | 2017-05-29 15:49 | PD.CONS ---
HPI History of Present Illness This is a 77 year old male with hx prostate ca, HTN, GERD, DM2 who presented with abd pain and n/v. 2 days ago he began experiencing RUQ pain radiating to his flank that was burning, stabbing pain. He also had n/v. Never had this pain before. he was found to elevated LFTs and mild elevation lipase at 427. CT showed appendicolith with no findings suggesting acute appendicitis; US showed intrahepatic dilatation slightly out of proportion than expected, hepatic steatosis. Pt has been more constipated in the last month. he denies blood in stool, tarry stool. he last had colonsocopy [address]y [address] Arshad that was normal, and EGD 1 y ago with finding of "acid". He does have GERD for which he takes zantac and it works well for him. He has had an open cholecystectomy. Denies ETOH. PFSH Past Medical History 1. arthritis. 2. Anxiety. 3. Hypercholesteremia. 4. Diabetes. 5. Gastroesophageal reflux disease. 6. coronary artery disease. 7. history of prostate cancer. Past Surgical History left total hip arthroplasty Open Cholecystectomy vein stripping Coded Allergies: Latex (Verified Allergy, Mild, Itching, 04/04/17) MRI PRECAUTION (Verified Adverse Reaction, Severe, STAPES IMPLANT, 05/28/17) PT STATES BILATERAL STAPES IMPLANTS/JLA 05/28/17 Family History Mother had diabetes type 2 Social History Alcohol Use: No 30 years Tobacco Use: No 25 years Substance Use: No Review of Systems Constitutional: DENIES: Fever Ears, nose, mouth, throat: DENIES: Throat pain Respiratory: DENIES: Hemoptysis Cardiovascular: DENIES: Chest pain Gastrointestinal: COMPLAINS OF: Abdominal pain, Constipation, Nausea, Vomiting , DENIES: Black stools, Bloody stools, Diarrhea, Hematemesis Genitourinary: DENIES: Hematuria Musculoskeletal: DENIES: Joint Swelling Integumentary: DENIES: Rash Hematologic/lymphatic: COMPLAINS OF: Bruising Neurologic: DENIES: Headache Psychiatric: DENIES: Confusion GI Exam Vitals I&O Vital Signs Date Time Temp Pulse Resp B/P Pulse Ox O2 Delivery O2 Flow Rate FiO2 05/29/17 12:00 97.6 80 18 139/70 97 05/29/17 08:00 97.5 68 18 121/63 97 05/29/17 04:20 99.4 86 18 117/58 95 05/29/17 00:20 99.4 94 18 115/60 97 05/28/17 20:20 99.3 92 17 116/63 97 05/28/17 16:00 99.6 106 18 109/64 95 I/O 05/28/17 05/28/17 05/28/17 05/29/17 05/29/17 05/29/17 07:00 15:00 23:00 07:00 15:00 23:00 Intake Total 240 ml 120 ml Output Total 400 ml Balance -160 ml 120 ml Intake Oral 240 ml 120 ml Output Urine Total 400 ml # Voids 1 2 # Bowel Movements 0 0 Imaging Last Impressions Liver Ultrasound 05/29/17 0000 Signed Impressions: Service Date/Time: Monday, May 29, 2017 07:56 - CONCLUSION: 1. Status post cholecystectomy with mild extra and mild to moderate intrahepatic ductal dilatation. Ductal dilatation may be noted following cholecystectomy due to reservoir effect. The degree of intrahepatic ductal dilatation appears slightly out of proportion than expected. Further evaluation may be performed with CT exam, MRCP or ERCP as clinically warranted. 2. Mild hepatomegaly and increased hepatic echogenicity consistent with hepatic steatosis. Jules Chavez MD Chest X-Ray 05/28/17 1106 Signed Impressions: Service Date/Time: Sunday, May 28, 2017 11:04 - CONCLUSION: Normal examination. Yayo Freeman MD Abdomen/Pelvis CT 05/28/17 1106 Signed Impressions: Service Date/Time: Sunday, May 28, 2017 12:05 - CONCLUSION: 1. Mild diverticular disease of the sigmoid without diverticulitis. 2. Punctate appendicolith at the appendiceal tip with no CT findings of acute appendicitis. 3. Postsurgical changes including cholecystectomy and probable prostatic seeds. 4. Otherwise, no acute intraperitoneal or pelvic process to explain current clinical symptoms. Nish Orr MD Laboratory Test 05/28/17 05/29/17 19:06 06:59 Lactic Acid Level 2.2 mmol/L Hepatitis A IgM Antibody NEGATIVE Hepatitis B Surface Antigen NEGATIVE Hepatitis B Core IgM Antibody NEGATIVE Hepatitis C Antibody NEGATIVE White Blood Count 10.3 TH/MM3 Red Blood Count 4.57 MIL/MM3 Hemoglobin 12.8 GM/DL Hematocrit 37.6 % Mean Corpuscular Volume 82.4 FL Mean Corpuscular Hemoglobin 27.9 PG Mean Corpuscular Hemoglobin 33.9 % Concent Red Cell Distribution Width 14.5 % Platelet Count 154 TH/MM3 Mean Platelet Volume 7.4 FL Neutrophils (%) (Auto) 78.2 % Lymphocytes (%) (Auto) 12.3 % Monocytes (%) (Auto) 8.6 % Eosinophils (%) (Auto) 0.8 % Basophils (%) (Auto) 0.1 % Neutrophils # (Auto) 8.0 TH/MM3 Lymphocytes # (Auto) 1.3 TH/MM3 Monocytes # (Auto) 0.9 TH/MM3 Eosinophils # (Auto) 0.1 TH/MM3 Basophils # (Auto) 0.0 TH/MM3 CBC Comment DIFF FINAL Differential Comment Sodium Level 137 MEQ/L Potassium Level 4.2 MEQ/L Chloride Level 105 MEQ/L Carbon Dioxide Level 25.0 MEQ/L Anion Gap 7 MEQ/L Blood Urea Nitrogen 15 MG/DL Creatinine 1.71 MG/DL Estimat Glomerular Filtration 39 ML/MIN Rate Random Glucose 122 MG/DL Calcium Level 8.5 MG/DL Total Bilirubin 4.0 MG/DL Direct Bilirubin 2.7 MG/DL Aspartate Amino Transf 139 U/L (AST/SGOT) Alanine Aminotransferase 162 U/L (ALT/SGPT) Alkaline Phosphatase 90 U/L Total Protein 6.3 GM/DL Albumin 2.7 GM/DL Lipase 302 U/L Physical Examination HEENT: PERRLt; normocephalic; atraumatic; no jaundice. CHEST: CTA CARDIAC: RRR ABDOMEN: Soft, nondistended, RUQ & epigastric TTP; no hepatosplenomegaly; bowel sounds are present in all four quadrants. EXTREMITIES: No clubbing, cyanosis, or edema. SKIN: Normal; no rash; no jaundice. MASTER MERCHANDISER: No focal deficits; alert and oriented times three. Assessment and Plan Plan ASSESSMENT - RUQ pain, n/v - onset 2d ago. hx open cholecystectomy. CT 05-28-17 showed appendicolith but no findings suggesting acute appendicitis. US 05-29-17--> 1. Status post cholecystectomy with mild extra and mild to moderate intrahepatic ductal dilatation. Ductal dilatation may be noted following cholecystectomy due to reservoir effect. The degree of intrahepatic ductal dilatation appears slightly out of proportion than expected. Further evaluation may be performed with CT exam, MRCP or ERCP as clinically warranted. 2. Mild hepatomegaly and increased hepatic echogenicity consistent with hepatic steatosis. CBD 9mm could be obstruction. pt cannot have MRCP. - elevated LFTs - on admission AST 195, ALT 124, ALP 102, tbil 1.5. Bili has gone up to 4.0. fatty liver per CT. CT as above, noting possibly more intrahepatic dilatation than to be expected s/p coby. hep panel neg. - elevated lipase - 427 on admission, down to 302. could be from vomiting. - GERD - pt takes PLAN - famotidine - ERCP - obtain consents - clear liquid diet - NPO after midnight - monitor labs - supportive care - further recommendations to follow This pt seen by myself and Dr Pearson and this note is written on his behalf Devora Alarcon May 29, 2017 3:49 pm
[2017-05-29 16:00] VITALS: BP 155/72; PULSE 65; RESP 18; TEMP 98.1; O2SAT 97
[2017-05-29 17:00] LABS: HEMOGLOBIN A1a 0.9 %; HEMOGLOBIN A1b 0.6 %; HEMOGLOBIN Ao 54.8 %; HEMOGLOBIN F 0.9 %; HEMOGLOBIN LA1C 1.3 %; HEMOGLOBIN P3 2.6 %
[2017-05-29 19:00] VITALS: BP 140/77; PULSE 72; RESP 17; TEMP 98.6; O2SAT 97
[2017-05-29] MEDS: FAMOTIDINE 20 MG TAB PO SCH (21:37)
[2017-05-30] VITALS: BP 157/87; PULSE 73; RESP 16; TEMP 98.6; O2SAT 99
[2017-05-30] MEDS: TEMAZEPAM 15 MG CAP PO PRN (00:14)
[2017-05-30] MEDS ORDERED: SODIUM CHLORID 0.9% 500 ML IV PRN (03:15)
[2017-05-30] MEDS ORDERED: LACTATED RINGER'S 1000 ML IV PRN (03:15)
[2017-05-30] MEDS ORDERED: CHLORHEXIDINE GLUCONATE 2 % 1 PACK (2 CLOTHS) TOPICAL PRN (03:15)
[2017-05-30] MEDS ORDERED: POVIDONE IODINE 5% (ANTISEPSIS KIT) 4 APPLICATIONS EACH NARE PRN (03:15)
[2017-05-30 04:00] VITALS: BP 142/77; PULSE 69; RESP 16; TEMP 97.2; O2SAT 96
[2017-05-30] MEDS: ACETAMINOPHEN 325 MG TAB PO PRN ×2 (05:01→20:41)
[2017-05-30] MEDS: ONDANSETRON HCL 4 MG/2 ML VIAL IVP PRN ×2 (05:01→20:42)
[2017-05-30] MEDS: INSULIN ASPART SUPPLEMENTAL SCALE SQ SCH ×4 (06:03→20:42)
[2017-05-30 07:46] VITALS: BP 139/76; PULSE 75; RESP 20; TEMP 97.5; O2SAT 98
[2017-05-30 07:54] LABS: INDIRECT BILIRUBIN 0.8 MG/DL (0.0-0.8); TOTAL BILIRUBIN ADULT 1.5 MG/DL (0.2-1.0)
[2017-05-30] MEDS: FAMOTIDINE 20 MG TAB PO SCH ×3 (08:26→20:41)
[2017-05-30] MEDS: SODIUM CHLORIDE 0.9% FLUSH 10 ML FLUSH IV FLUSH SCH ×2 (09:00→20:42)
[2017-05-30] MEDS: SODIUM CHLOR 0.9% 1000 ML INJ 1,000 ML IV SCH (10:09)
--- NOTE | 2017-05-30 11:45 | HHI.GIFU ---
Subjective Remarks Pt resting in bed in no apparent distress. says his right side pain comes and goes. nauseous, asking for water. Objective Vitals I&O Vital Signs Date Time Temp Pulse Resp B/P Pulse Ox O2 Delivery O2 Flow Rate FiO2 05/30/17 07:46 97.5 75 20 139/76 98 05/30/17 04:00 97.2 69 16 142/77 96 05/30/17 00:00 98.6 73 16 157/87 99 05/29/17 19:11 Room Air 05/29/17 19:00 98.6 72 17 140/77 97 05/29/17 16:00 98.1 65 18 155/72 97 05/29/17 12:00 97.6 80 18 139/70 97 I/O 05/29/17 05/29/17 05/29/17 05/30/17 05/30/17 05/30/17 07:00 15:00 23:00 07:00 15:00 23:00 Intake Total 120 ml 960 ml 960 ml 958 ml Output Total 500 ml Balance 120 ml 960 ml 460 ml 958 ml Intake Oral 120 ml 960 ml 960 ml 450 ml IV Total 508 ml Output Urine Total 500 ml # Voids 2 2 3 # Bowel Movements 0 1 0 0 Laboratory Laboratory Tests Test 05/30/17 05:00 Total Bilirubin 1.5 Direct Bilirubin 0.7 Indirect Bilirubin 0.8 Aspartate Amino Transf 91 (AST/SGOT) Alanine Aminotransferase 128 (ALT/SGPT) Alkaline Phosphatase 109 Total Protein 7.0 Albumin 2.6 Imaging Last Impressions Liver Ultrasound 05/29/17 0000 Signed Impressions: Service Date/Time: Monday, May 29, 2017 07:56 - CONCLUSION: 1. Status post cholecystectomy with mild extra and mild to moderate intrahepatic ductal dilatation. Ductal dilatation may be noted following cholecystectomy due to reservoir effect. The degree of intrahepatic ductal dilatation appears slightly out of proportion than expected. Further evaluation may be performed with CT exam, MRCP or ERCP as clinically warranted. 2. Mild hepatomegaly and increased hepatic echogenicity consistent with hepatic steatosis. Jules Chavez MD Chest X-Ray 05/28/17 1106 Signed Impressions: Service Date/Time: Sunday, May 28, 2017 11:04 - CONCLUSION: Normal examination. Yayo Freeman MD Abdomen/Pelvis CT 05/28/17 1106 Signed Impressions: Service Date/Time: Sunday, May 28, 2017 12:05 - CONCLUSION: 1. Mild diverticular disease of the sigmoid without diverticulitis. 2. Punctate appendicolith at the appendiceal tip with no CT findings of acute appendicitis. 3. Postsurgical changes including cholecystectomy and probable prostatic seeds. 4. Otherwise, no acute intraperitoneal or pelvic process to explain current clinical symptoms. Nish Orr MD Physical Exam HEENT: PERRL; normocephalic; atraumatic; no jaundice. CHEST: CTA CARDIAC: RRR ABDOMEN: Soft, nondistended, right mid abdominal pain; no hepatosplenomegaly; bowel sounds are present in all four quadrants. EXTREMITIES: No clubbing, cyanosis, or edema. SKIN: Normal; no rash; no jaundice. JAIL GUARD: No focal deficits; alert and oriented times three. Assessment and Plan Plan ASSESSMENT - RUQ pain, n/v - onset 2d ago. hx open cholecystectomy. CT 05-28-17 showed appendicolith but no findings suggesting acute appendicitis. US 05-29-17--> 1. Status post cholecystectomy with mild extra and mild to moderate intrahepatic ductal dilatation. Ductal dilatation may be noted following cholecystectomy due to reservoir effect. The degree of intrahepatic ductal dilatation appears slightly out of proportion than expected. Further evaluation may be performed with CT exam, MRCP or ERCP as clinically warranted. 2. Mild hepatomegaly and increased hepatic echogenicity consistent with hepatic steatosis. CBD 9mm could be obstruction. pt cannot have MRCP. - elevated LFTs - on admission AST 195, ALT 124, ALP 102, tbil 1.5. Bili has gone up to 4.0. fatty liver per CT. CT as above, noting possibly more intrahepatic dilatation than to be expected s/p coby. hep panel neg. - elevated lipase - 427 on admission, down to 302. could be from vomiting. - GERD - pt takes zantac at home PLAN - famotidine - ERCP tomorrow - clear liquid diet - NPO after midnight - monitor labs - supportive care - further recommendations to follow This pt seen by myself and Dr Pearson and this note is written on his behalf Devora Alarcon [facility] May 30, 2017 11:45
[2017-05-30] MEDS: ALPRAZolam 0.5 MG TAB PO PRN ×2 (11:51→21:46)
[2017-05-30 12:00] VITALS: BP 140/72; PULSE 64; RESP 18; TEMP 98; O2SAT 99
--- NOTE | 2017-05-30 12:33 | HHI.PR ---
Subjective Remarks Follow-up abdominal pain 05/29/17-patient seen and examined, complained of right sided abdominal pain associated with nausea without any emesis. Currently afebrile and denies any shortness of breath 05/30/17-patient seen and examined, still complaining of right upper quadrant pain Objective Vitals Vital Signs Date Time Temp Pulse Resp B/P Pulse Ox O2 Delivery O2 Flow Rate FiO2 05/30/17 07:46 97.5 75 20 139/76 98 05/30/17 04:00 97.2 69 16 142/77 96 05/30/17 00:00 98.6 73 16 157/87 99 05/29/17 19:11 Room Air 05/29/17 19:00 98.6 72 17 140/77 97 05/29/17 16:00 98.1 65 18 155/72 97 I/O 05/29/17 05/29/17 05/29/17 05/30/17 05/30/17 05/30/17 07:00 15:00 23:00 07:00 15:00 23:00 Intake Total 120 ml 960 ml 960 ml 958 ml Output Total 500 ml Balance 120 ml 960 ml 460 ml 958 ml Intake Oral 120 ml 960 ml 960 ml 450 ml IV Total 508 ml Output Urine Total 500 ml # Voids 2 2 3 # Bowel Movements 0 1 0 0 Result Diagram: 05/29/1759 05/29/1759 Objective Remarks GENERAL: NAD SKIN: Warm and dry. HEAD: Normocephalic. EYES: No scleral icterus. No injection or drainage. NECK: Supple, trachea midline. No JVD or lymphadenopathy. CARDIOVASCULAR: Regular rate and rhythm without murmurs, gallops, or rubs. RESPIRATORY: Breath sounds equal bilaterally. No accessory muscle use. GASTROINTESTINAL: Abdomen soft, mildly tender RUQ, nondistended. MUSCULOSKELETAL: No cyanosis, or edema. BACK: Nontender without obvious deformity. No CVA tenderness. A/P Problem List: (1) Transaminitis ICD Code: R74.0 Status: Acute (2) Hyperbilirubinemia ICD Code: E80.6 Status: Acute (3) Right upper quadrant pain ICD Code: R10.11 Status: Acute (4) Elevated lipase ICD Code: R74.8 Status: Acute (5) Acute worsening of stage 3 chronic kidney disease ICD Code: N18.3 Status: Acute (6) DM (diabetes mellitus) ICD Code: E11.9 Status: Chronic (7) HTN (hypertension) ICD Code: I10 Status: Chronic Assessment and Plan 77-year-old man with Right sided abdominal pain CT abdomen with mild diverticular disease of the sigmoid colon without diverticulitis, and no acute intraperitoneal or pelvic process to explain current clinical symptoms. Chest x-ray without any evidence of acute pulmonary disease or fracture Liver ultrasound with finding of intrahepatic dilatation-patient will need ERCP 05/31/17 GI consultation pending LFTs and lipase mildly elevated Patient with previous open cholecystectomy Parenteral pain management accordingly Transaminitis hepatitis profile negative, UDS, alcohol level Hold statin which may be the culprit. Monitor LFTs Hyperbilirubinemia Patient status post open cholecystectomy years ago No evidence of CBD, however GI has been consulted Lactic acidosis Secondary to dehydration Acute on chronic kidney disease stage III Gentle IV fluid hydration Monitor BUN and creatinine and avoid all nephrotoxic drugs Diabetes type 2 Currently not on any therapy per patient as metformin was discontinued by his PCP hemoglobin A1c pending Continue insulin sliding scale with fingerstick blood glucose monitoring Elevated lipase-resolved CT abdomen without any evidence of pancreatitis Continue with IV fluid hydration Global weakness PT consult to treat and eval DVT prophylaxis Bilateral SCD Javy Pickett MD May 30, 2017 12:32
[2017-05-30 16:00] VITALS: BP 140/72; PULSE 64; RESP 18; TEMP 97.7; O2SAT 99
[2017-05-30 20:30] VITALS: BP 148/77; PULSE 62; RESP 18; TEMP 98.5; O2SAT 97
[2017-05-31] MEDS: TEMAZEPAM 15 MG CAP PO PRN ×2 (00:21→23:57)
[2017-05-31] MEDS: SODIUM CHLOR 0.9% 1000 ML INJ 1,000 ML IV SCH ×2 (00:21→08:54)
[2017-05-31] MEDS: INSULIN ASPART SUPPLEMENTAL SCALE SQ SCH ×4 (06:26→20:19)
[2017-05-31] MEDS: ACETAMINOPHEN 325 MG TAB PO PRN ×3 (06:27→23:57)
[2017-05-31] MEDS: FAMOTIDINE 20 MG TAB PO SCH (07:00)
[2017-05-31 07:29] VITALS: BP 122/69; PULSE 64; RESP 18; TEMP 97.9; O2SAT 98
[2017-05-31] MEDS: SODIUM CHLORIDE 0.9% FLUSH 10 ML FLUSH IV FLUSH SCH ×2 (07:36→20:19)
--- NOTE | 2017-05-31 11:52 | HHI.PR ---
Subjective Remarks Follow-up abdominal pain 05/29/17-patient seen and examined, complained of right sided abdominal pain associated with nausea without any emesis. Currently afebrile and denies any shortness of breath 05/30/17-patient seen and examined, still complaining of right upper quadrant pain 05/31/17-patient seen and examined, currently nothing by mouth pending the ERCP. Patient still with right upper quadrant pain. Nausea resolved. Objective Vitals Vital Signs Date Time Temp Pulse Resp B/P Pulse Ox O2 Delivery O2 Flow Rate FiO2 05/31/17 07:51 Room Air 05/31/17 07:29 97.9 64 18 122/69 98 05/30/17 20:30 98.5 62 18 148/77 97 05/30/17 19:07 Room Air 05/30/17 16:00 97.7 64 18 140/72 99 05/30/17 12:00 98.0 64 18 140/72 99 I/O 05/30/17 05/30/17 05/30/17 05/31/17 05/31/17 05/31/17 07:00 15:00 23:00 07:00 15:00 23:00 Intake Total 958 ml 480 ml 720 ml 1053 ml 408 ml Output Total 800 ml 600 ml 400 ml Balance 958 ml -320 ml 120 ml 653 ml 408 ml Intake Oral 450 ml 480 ml 720 ml 480 ml IV Total 508 ml 573 ml 408 ml Output Urine Total 800 ml 600 ml 400 ml # Voids 3 2 # Bowel Movements 0 0 0 0 Result Diagram: 05/29/17 0659 05/29/17 0659 Imaging Last Impressions Liver Ultrasound 05/29/17 0000 Signed Impressions: Service Date/Time: Monday, May 29, 2017 07:56 - CONCLUSION: 1. Status post cholecystectomy with mild extra and mild to moderate intrahepatic ductal dilatation. Ductal dilatation may be noted following cholecystectomy due to reservoir effect. The degree of intrahepatic ductal dilatation appears slightly out of proportion than expected. Further evaluation may be performed with CT exam, MRCP or ERCP as clinically warranted. 2. Mild hepatomegaly and increased hepatic echogenicity consistent with hepatic steatosis. Jules Chavez MD Chest X-Ray 05/28/17 1106 Signed Impressions: Service Date/Time: Sunday, May 28, 2017 11:04 - CONCLUSION: Normal examination. Yayo Freeman MD Abdomen/Pelvis CT 05/28/17 1106 Signed Impressions: Service Date/Time: Sunday, May 28, 2017 12:05 - CONCLUSION: 1. Mild diverticular disease of the sigmoid without diverticulitis. 2. Punctate appendicolith at the appendiceal tip with no CT findings of acute appendicitis. 3. Postsurgical changes including cholecystectomy and probable prostatic seeds. 4. Otherwise, no acute intraperitoneal or pelvic process to explain current clinical symptoms. Nish Orr MD Objective Remarks GENERAL: NAD SKIN: Warm and dry. HEAD: Normocephalic. EYES: No scleral icterus. No injection or drainage. NECK: Supple, trachea midline. No JVD or lymphadenopathy. CARDIOVASCULAR: Regular rate and rhythm without murmurs, gallops, or rubs. RESPIRATORY: Breath sounds equal bilaterally. No accessory muscle use. GASTROINTESTINAL: Abdomen soft, mildly tender RUQ, nondistended. MUSCULOSKELETAL: No cyanosis, or edema. BACK: Nontender without obvious deformity. No CVA tenderness. A/P Problem List: (1) Transaminitis ICD Code: R74.0 Status: Acute (2) Hyperbilirubinemia ICD Code: E80.6 Status: Acute (3) Right upper quadrant pain ICD Code: R10.11 Status: Acute (4) Elevated lipase ICD Code: R74.8 Status: Acute (5) Acute worsening of stage 3 chronic kidney disease ICD Code: N18.3 Status: Acute (6) DM (diabetes mellitus) ICD Code: E11.9 Status: Chronic (7) HTN (hypertension) ICD Code: I10 Status: Chronic Assessment and Plan 77-year-old man with Right sided abdominal pain CT abdomen with mild diverticular disease of the sigmoid colon without diverticulitis, and no acute intraperitoneal or pelvic process to explain current clinical symptoms. Chest x-ray without any evidence of acute pulmonary disease or fracture Liver ultrasound with finding of intrahepatic dilatation-Plan for ERCP today 05/31/17 GI consultation appreciated Patient with previous open cholecystectomy Parenteral pain management accordingly Transaminitis hepatitis profile negative, UDS, alcohol level Hold statin which may be the culprit. Monitor LFTs Hyperbilirubinemia-improving Patient status post open cholecystectomy years ago No evidence of CBD, however GI has been consulted Lactic acidosis Secondary to dehydration Acute on chronic kidney disease stage III Gentle IV fluid hydration Monitor BUN and creatinine and avoid all nephrotoxic drugs Diabetes type 2 Currently not on any therapy per patient as metformin was discontinued by his PCP hemoglobin A1c 7.3 Continue insulin sliding scale with fingerstick blood glucose monitoring Elevated lipase-resolved CT abdomen without any evidence of pancreatitis Global weakness PT to treat and eval DVT prophylaxis Bilateral SCD Javy Pickett MD May 31, 2017 11:52
[2017-05-31 12:00] VITALS: BP 140/75; PULSE 62; RESP 18; TEMP 98; O2SAT 98
[2017-05-31] MEDS ORDERED: PROPOFOL 200 MG/20 ML AMP IV ONE (15:42)
--- NOTE | 2017-05-31 15:49 | GIPROC ---
[facility] [address] [facility]. [facility], [address] ERCP PROCEDURE REPORT EXAM DATE: 05/31/2017 PATIENT NAME: Marya Naylor MR #: [id number] BIRTHDATE: 1940 ATTENDING: [place] MD ORDER #: [id number] EXECUTIVE PRODUCER PROMOS: Teodoro Harman and Yolanda Hardin STATUS: inpatient INDICATIONS: The patient is a 77 yr old male here for an ERCP due to abdominal pain of suspected biliary origin, abnormal abdominal CT, and abnormal liver function test PROCEDURE PERFORMED: ERCP with biopsy MEDICATIONS: Per Anesthesia and None. CONSENT: The patient understands the risks and benefits of the procedure and understands that these risks include, but are not limited to: sedation, allergic reaction, infection, perforation and/or bleeding. Alternative means of evaluation and treatment include, among others: physical exam, x-rays, and/or surgical intervention. The patient elects to proceed with this endoscopic procedure. medical equipment was checked for proper function. Hand hygiene and appropriate measures for infection prevention was taken. After the risks, benefits and alternatives of the procedure were thoroughly explained, Informed was verified, confirmed and timeout was successfully executed by the treatment team. With the patient in left semi-prone position, medications were administered intravenously.The Pentax [id number] was passed from the mouth into the esophagus and further advanced from the esophagus into the stomach. From stomach scope was directed to the second portion of the duodenum. Major papilla was aligned with the duodenoscope. The scope position was confirmed fluoroscopically. Rest of the findings/therapeutics are given below. The scope was then completely withdrawn from the patient and the procedure completed. The pulse, BP, and O2 saturation were monitored and documented by the physician and the nursing staff throughout the entire procedure. The patient was cared for as planned according to standard protocol. The patient was then discharged to recovery in stable condition and with appropriate post procedure care. 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 Multiple large ulceration in the duodenal bulb and second portion of the duodenum, with edema and erythema. No clear ampulla identified. Multiple areas were probed but unable to locate ampulla and canulate the duct due to significant inflammation in this area. Biopsies obtained. ADVERSE EVENT: There were no complications. IMPRESSIONS: 1. Large periampullary diverticulum 2. Multiple large ulceration in the duodenal bulb and second portion of the duodenum, with edema and erythema. No clear ampulla identified. Multiple areas were probed but unable to locate ampulla and canulate the duct due to significant inflammation in this area. Biopsies obtained RECOMMENDATIONS: 1. Liver enzymes 2. Consider PTC if lfts remain elevated vs. repeat ercp in 2 weeks once inflammtion cools down. Protonix bid recommended. Check biopsies. REPEAT EXAM: Return 2 weeks ERCP [place] MD eSigned: [place] Diamond MD 05/31/2017 3:49 PM cc:
[2017-05-31] MEDS ORDERED: DO NOT ADM ANY ANTICOAGULANT DRUGS PRN (16:15)
[2017-05-31 17:15] VITALS: BP 170/77; PULSE 52; RESP 16; TEMP 96.4; O2SAT 99
[2017-05-31] MEDS: ALPRAZolam 0.5 MG TAB PO PRN (18:32)
[2017-05-31 20:01] VITALS: BP 151/75; PULSE 57; RESP 16; TEMP 98.4; O2SAT 97
[2017-05-31] MEDS: SUCRALFATE 1 GM/10 ML CUP PO SCH (20:21)
[2017-05-31] MEDS: PANTOPRAZOLE SOD 40 MG DELAYED RELEASE TAB PO SCH (20:21)
[2017-06-01] VITALS: BP 121/68; PULSE 61; RESP 17; TEMP 98.2; O2SAT 98
[2017-06-01] MEDS: ALPRAZolam 0.5 MG TAB PO PRN (06:29)
[2017-06-01] MEDS: SUCRALFATE 1 GM/10 ML CUP PO SCH ×2 (06:29→12:43)
[2017-06-01] MEDS: INSULIN ASPART SUPPLEMENTAL SCALE SQ SCH ×2 (06:29→11:00)
[2017-06-01] MEDS: SODIUM CHLOR 0.9% 1000 ML INJ 1,000 ML IV SCH (06:29)
[2017-06-01 08:00] VITALS: BP 108/61; PULSE 80; RESP 16; TEMP 96.7; O2SAT 97
[2017-06-01] MEDS: PANTOPRAZOLE SOD 40 MG DELAYED RELEASE TAB PO SCH (09:13)
[2017-06-01] MEDS: SODIUM CHLORIDE 0.9% FLUSH 10 ML FLUSH IV FLUSH SCH (09:17)
[2017-06-01] MEDS ORDERED: SUCR1S PO (10:15)
[2017-06-01] MEDS ORDERED: PANT40TA3 PO (10:15)
--- NOTE | 2017-06-01 10:18 | HHI.PR ---
Subjective Remarks Follow-up abdominal pain 05/29/17-patient seen and examined, complained of right sided abdominal pain associated with nausea without any emesis. Currently afebrile and denies any shortness of breath 05/30/17-patient seen and examined, still complaining of right upper quadrant pain 05/31/17-patient seen and examined, currently nothing by mouth pending the ERCP. Patient still with right upper quadrant pain. Nausea resolved. 06/01/17-patient seen and examined, status post ERCP 05/31/17 and patient currently denies any abdominal pain. Tolerating full liquid without any complication Objective Vitals Vital Signs Date Time Temp Pulse Resp B/P Pulse Ox O2 Delivery O2 Flow Rate FiO2 06/01/17 00:00 98.2 61 17 121/68 98 05/31/17 20:01 98.4 57 16 151/75 97 05/31/17 18:35 Room Air 05/31/17 17:15 96.4 52 16 170/77 99 05/31/17 17:00 98.0 52 14 158/81 97 Room Air 05/31/17 16:45 56 14 151/80 99 Room Air 05/31/17 16:30 55 14 138/74 99 Room Air 05/31/17 16:15 59 14 140/78 99 Nasal Cannula 2 05/31/17 16:00 69 14 143/78 100 Nasal Cannula 2 05/31/17 15:57 98.0 67 14 114/70 99 Nasal Cannula 2 05/31/17 12:00 98.0 62 18 140/75 98 I/O 05/31/17 05/31/17 05/31/17 06/01/17 06/01/17 06/01/17 07:00 15:00 23:00 07:00 15:00 23:00 Intake Total 1053 ml 408 ml 1293 ml 360 ml Output Total 400 ml 600 ml 550 ml 450 ml Balance 653 ml -192 ml 743 ml -90 ml Intake Oral 480 ml 0 ml 480 ml 360 ml IV Total 573 ml 408 ml 413 ml Other 400 ml Output Urine Total 400 ml 600 ml 550 ml 450 ml # Bowel Movements 0 0 Result Diagram: 05/29/17 0659 05/29/1759 Objective Remarks GENERAL: NAD SKIN: Warm and dry. HEAD: Normocephalic. EYES: No scleral icterus. No injection or drainage. NECK: Supple, trachea midline. No JVD or lymphadenopathy. CARDIOVASCULAR: Regular rate and rhythm without murmurs, gallops, or rubs. RESPIRATORY: Breath sounds equal bilaterally. No accessory muscle use. GASTROINTESTINAL: Abdomen soft, mildly tender RUQ, nondistended. MUSCULOSKELETAL: No cyanosis, or edema. BACK: Nontender without obvious deformity. No CVA tenderness. A/P Problem List: (1) Transaminitis ICD Code: R74.0 Status: Acute (2) Hyperbilirubinemia ICD Code: E80.6 Status: Acute (3) Right upper quadrant pain ICD Code: R10.11 Status: Acute (4) Elevated lipase ICD Code: R74.8 Status: Acute (5) Acute worsening of stage 3 chronic kidney disease ICD Code: N18.3 Status: Acute (6) DM (diabetes mellitus) ICD Code: E11.9 Status: Chronic (7) HTN (hypertension) ICD Code: I10 Status: Chronic Assessment and Plan 77-year-old man with Right sided abdominal pain CT abdomen with mild diverticular disease of the sigmoid colon without diverticulitis, and no acute intraperitoneal or pelvic process to explain current clinical symptoms. Liver ultrasound with finding of intrahepatic dilatation-s/p ERCP 05/31/17 GI consultation appreciated Patient with previous open cholecystectomy Parenteral pain management accordingly Transaminitis hepatitis profile negative, UDS, alcohol level Hold statin Status post ERCP 05/31/17. LFTs pending this a.m., and if abnormal may consider PTC vs. repeat ercp in 2 weeks once inflammation cools down for GI Hyperbilirubinemia-improving Patient status post open cholecystectomy years ago No evidence of CBD Status post ERCP 05/31/17 Total and direct bili pending this a.m. Lactic acidosis Secondary to dehydration Acute on chronic kidney disease stage III Gentle IV fluid hydration Monitor BUN and creatinine and avoid all nephrotoxic drugs Diabetes type 2 Currently not on any therapy per patient as metformin was discontinued by his PCP hemoglobin A1c 7.3 however secondary to lactic acidosis, will hold on resuming metformin Continue insulin sliding scale with fingerstick blood glucose monitoring Elevated lipase-resolved CT abdomen without any evidence of pancreatitis Global weakness PT to treat and eval DVT prophylaxis Bilateral SCD Javy Pickett MD Jun 01, 2017 10:18
--- NOTE | 2017-06-01 10:25 | HHI.DS ---
Discharge Summary Admission Date May 28, 2017 at 12:58 Discharge Date: Jun 01, 2017 Admitting Diagnosis Abdominal Pain/Increased LFT'S/Increased Lipase (1) Transaminitis ICD Code: R74.0 (2) Hyperbilirubinemia ICD Code: E80.6 (3) Right upper quadrant pain ICD Code: R10.11 (4) Elevated lipase ICD Code: R74.8 (5) Acute worsening of stage 3 chronic kidney disease ICD Code: N18.3 (6) DM (diabetes mellitus) ICD Code: E11.9 (7) HTN (hypertension) ICD Code: I10 Procedures ERCP Brief History - From Admission 77-year-old male for past medical history of prostate cancer, hypertension, hyperlipidemia, diabetes type 2 presented to the ED with acute worsening right sided flank pain rated 10/10 in intensity lasting up to 15 minutes and occasionally associated with nausea without any emesis. Patient states he first noticed the pain about 3 weeks ago, and it will come and go however worse this morning when he woke up. He recall an initial fall 3 weeks ago. Patient was seen by his PCP last week with secondary to a second fall episode advised patient to come off metformin. Patient also is no longer currently taking any BP med. Patient reports associated generalized weakness 2 weeks. He also noted worsening lightheadedness month denies any chest pain. He denies any hemoptysis, hematuria or GI bleed. Chest x-ray in the ED was negative and abdomen/pelvic CT could not explain patient's abdominal pain. Abnormal labs include elevated LFTs, T bili, lactic acid and lipase as well as creatinine. CBC/BMP: 05/29/17 0659 05/29/17 0659 Significant Findings Laboratory Tests Test 05/30/17 05:00 Total Bilirubin 1.5 MG/DL (0.2-1.0) Direct Bilirubin 0.7 MG/DL (0.0-0.2) Aspartate Amino Transf 91 U/L (15-37) (AST/SGOT) Alanine Aminotransferase 128 U/L (12-78) (ALT/SGPT) Albumin 2.6 GM/DL (3.4-5.0) Imaging Last Impressions Liver Ultrasound 05/29/17 0000 Signed Impressions: Service Date/Time: Monday, May 29, 2017 07:56 - CONCLUSION: 1. Status post cholecystectomy with mild extra and mild to moderate intrahepatic ductal dilatation. Ductal dilatation may be noted following cholecystectomy due to reservoir effect. The degree of intrahepatic ductal dilatation appears slightly out of proportion than expected. Further evaluation may be performed with CT exam, MRCP or ERCP as clinically warranted. 2. Mild hepatomegaly and increased hepatic echogenicity consistent with hepatic steatosis. Jules Chavez MD Chest X-Ray 05/28/17 1106 Signed Impressions: Service Date/Time: Sunday, May 28, 2017 11:04 - CONCLUSION: Normal examination. Yayo Freeman MD Abdomen/Pelvis CT 05/28/17 1106 Signed Impressions: Service Date/Time: Sunday, May 28, 2017 12:05 - CONCLUSION: 1. Mild diverticular disease of the sigmoid without diverticulitis. 2. Punctate appendicolith at the appendiceal tip with no CT findings of acute appendicitis. 3. Postsurgical changes including cholecystectomy and probable prostatic seeds. 4. Otherwise, no acute intraperitoneal or pelvic process to explain current clinical symptoms. Nish Orr MD PE at Discharge GENERAL: NAD SKIN: Warm and dry. HEAD: Normocephalic. EYES: No scleral icterus. No injection or drainage. NECK: Supple, trachea midline. No JVD or lymphadenopathy. CARDIOVASCULAR: Regular rate and rhythm without murmurs, gallops, or rubs. RESPIRATORY: Breath sounds equal bilaterally. No accessory muscle use. GASTROINTESTINAL: Abdomen soft, mildly tender RUQ, nondistended. MUSCULOSKELETAL: No cyanosis, or edema. BACK: Nontender without obvious deformity. No CVA tenderness. Hospital Course Patient admitted secondary to transaminitis, hyperbilirubinemia and abdominal right quadrant pain for which gastroenterology was consulted and ERCP was performed. Patient was treated for ulcer with Protonix 40 mg twice a day and Carafate. Renal function improved with gentle IV fluid hydration. He was placed on a sliding scale insulin. DVT and GI prophylaxis were provided. Patient conditions improved prior to discharge. Pt Condition on Discharge: Stable Discharge Disposition: Discharge Home Discharge Time: <= 30 minutes Discharge Instructions DIET: Follow Instructions for: Diabetic Diet Activities you can perform: Regular-No Restrictions Follow up Referrals: Gastroenterology PCP Follow-up - 1 Week New Medications: Pantoprazole (Pantoprazole) 40 Mg Tab 40 MG PO Q12HR Prevent Stress Ulcers #60 Ref 3 TAB Sucralfate Liq (Sucralfate Liq) 1 Gm/10 Ml Franca 1 GM PO ACHS Prevent Stress Ulcers #30 Ref 3 GM Continued Medications: Alprazolam (Alprazolam) 0.5 Mg Tab 0.5 MG PO Q6H PRN ANXIETY Ref 0 TAB Discontinued Medications: Hydrocodone-Acetaminophen (Lortab) 10-325 Mg Tab 1 TAB PO Q4H PRN PAIN Ref 0 TAB Omeprazole (Omeprazole) 20 Mg Cap 20 MG PO Javy Pickett MD Jun 01, 2017 10:25
[2017-06-01 11:07] LABS: ALT (GPT) 60 U/L (12-78); ANION GAP 7 MEQ/L (5-15); AST (GOT) 35 U/L (15-37); BICARBONATE 23.7 MEQ/L (21.0-32.0); BLOOD UREA NITROGEN 18 MG/DL (7-18); CHLORIDE 107 MEQ/L (98-107); GLOMERULAR FILTRATION RATE 44 ML/MIN (>89); SODIUM (NA) 138 MEQ/L (136-145)
[2017-06-01 11:10] LABS: ALKALINE PHOSPHATASE 78 U/L (45-117); TOTAL BILIRUBIN ADULT 0.8 MG/DL (0.2-1.0)
[2017-06-01 13:36] VITALS: O2SAT 97
--- NOTE | 2017-06-01 19:43 | HHI.GIFU ---
Subjective Remarks Pt reports he feels fine today. He has been eating without pain. He is on Protonix BID. He feels ready to go home. His bilirubin has dropped to normal. He knows he needs to follow up in office in a few weeks. He is a patient of Dr Arshad and knows how to make the appointment so he can have a followup ERCP in a few weeks. Objective Vitals I&O Vital Signs Date Time Temp Pulse Resp B/P Pulse Ox O2 Delivery O2 Flow Rate FiO2 06/01/17 13:36 97 06/01/17 08:00 96.7 80 16 108/61 97 06/01/17 00:00 98.2 61 17 121/68 98 05/31/17 20:01 98.4 57 16 151/75 97 I/O 05/31/17 05/31/17 05/31/17 06/01/17 06/01/17 06/01/17 07:00 15:00 23:00 07:00 15:00 23:00 Intake Total 1053 ml 408 ml 1293 ml 360 ml Output Total 400 ml 600 ml 550 ml 450 ml Balance 653 ml -192 ml 743 ml -90 ml Intake Oral 480 ml 0 ml 480 ml 360 ml IV Total 573 ml 408 ml 413 ml Other 400 ml Output Urine Total 400 ml 600 ml 550 ml 450 ml # Bowel Movements 0 0 Laboratory Laboratory Tests Test 06/01/17 09:54 Sodium Level 138 Potassium Level 4.0 Chloride Level 107 Carbon Dioxide Level 23.7 Anion Gap 7 Blood Urea Nitrogen 18 Creatinine 1.53 Estimat Glomerular Filtration 44 Rate Random Glucose 149 Calcium Level 8.9 Total Bilirubin 0.8 Direct Bilirubin 0.3 Aspartate Amino Transf 35 (AST/SGOT) Alanine Aminotransferase 60 (ALT/SGPT) Alkaline Phosphatase 78 Total Protein 6.5 Albumin 2.4 Physical Exam HEENT: PERRL; normocephalic; atraumatic; no jaundice. CHEST: CTA CARDIAC: RRR ABDOMEN: Soft, nondistended, right mid abdominal pain; no hepatosplenomegaly; bowel sounds are present in all four quadrants. EXTREMITIES: No clubbing, cyanosis, or edema. SKIN: Normal; no rash; no jaundice. GORE SEAMER: No focal deficits; alert and oriented times three. Assessment and Plan Plan ASSESSMENT - RUQ pain, n/v - onset 2d ago. hx open cholecystectomy. CT 05-28-17 showed appendicolith but no findings suggesting acute appendicitis. US 05-29-17--> 1. Status post cholecystectomy with mild extra and mild to moderate intrahepatic ductal dilatation. Ductal dilatation may be noted following cholecystectomy due to reservoir effect. The degree of intrahepatic ductal dilatation appears slightly out of proportion than expected. Further evaluation may be performed with CT exam, MRCP or ERCP as clinically warranted. 2. Mild hepatomegaly and increased hepatic echogenicity consistent with hepatic steatosis. CBD 9mm could be obstruction. pt cannot have MRCP. - elevated LFTs - on admission AST 195, ALT 124, ALP 102, tbil 1.5. Bili has gone up to 4.0. fatty liver per CT. CT as above, noting possibly more intrahepatic dilatation than to be expected s/p coby. hep panel neg. - elevated lipase - 427 on admission, down to 302. could be from vomiting. - GERD - pt takes zantac at home PLAN - Protonix BID - Followup in office in 2 weeks. - OK to discharge home today Esequiel Pearson MD Jun 01, 2017 19:43
== END 2017-06-01 17:14 | disposition home or self-care (01) ==
LOC: NEPE 10:45 → INTOOBSV 12:58 → NEDA 12:58 → N06A 16:02
PROVIDERS: ADMIT Hospitalist; ATTEND Hospitalist
DX: R10.9 Unspecified abdominal pain (principal); E80.6 Other disorders of bilirubin metabolism; R10.11 Right upper quadrant pain; R94.5 Abnormal results of liver function studies; I12.9 Hypertensive chronic kidney disease with stage 1 through stage 4 chronic kidney disease, or unspecified chronic kidney disease; N18.3 Chronic kidney disease, stage 3 (moderate); R74.0 Nonspecific elevation of levels of transaminase and lactic acid dehydrogenase [LDH]; E11.9 Type 2 diabetes mellitus without complications; K21.9 Gastro-esophageal reflux disease without esophagitis; M19.90 Unspecified osteoarthritis, unspecified site; R16.0 Hepatomegaly, not elsewhere classified; I25.2 Old myocardial infarction; R74.8 Abnormal levels of other serum enzymes; Z85.46 Personal history of malignant neoplasm of prostate; E78.5 Hyperlipidemia, unspecified; E87.2 Acidosis; E86.0 Dehydration; F41.9 Anxiety disorder, unspecified; I25.10 Atherosclerotic heart disease of native coronary artery without angina pectoris; Z87.891 Personal history of nicotine dependence; Z79.899 Other long term (current) drug therapy; K76.0 Fatty (change of) liver, not elsewhere classified
CPT/HCPCS: 71010; 74176; 76705; 80053; 80074; 80076; 80307; 81001; 82248; 82550; 82552; 82948; 83036; 83605; 83690; 84484; 85025; 85610; 85730; 93005; 96374; 96375; 97116; 97163; 99285; G0378; J1170; J1815; J2270; J2405; J7030; 76000; 88305; C1769; J3010

== ENCOUNTER 2017-06-03 09:35 | Inpatient (IN) | payer OTHER, MEDICARE ==
[2017-06-03] VITALS (8 sets, daily range): BP systolic 92–114; BP diastolic 55–67; PULSE 95–103; RESP 16–27; TEMP 97.9–101.1; O2SAT 93–100
[~2017-06-03] VITALS: Ht 182.9 cm; Wt 89.5 kg
[~2017-06-03 09:35] MED LIST changes: +ALPR0.5T3 PO; -ALPR0.5T99 PO; -FENO50TA PO; -HYDR10TA16 PO; -LISI-519 PO; -OMEP20CA2 PO; +PANT40TA3 PO; +SIMV40TA PO; -SIMV80TA PO; +SUCR1S PO
--- NOTE | 2017-06-03 09:58 | PD ---
HPI Chief Complaint: General Weakness Time Seen by Provider: 09:46 Travel History International Travel<30 days: No Contact w/Intl Traveler<30days: No Traveled to known affect area: No History of Present Illness HPI Patient is a 77-year-old male who presents to emergency room from home with EMS for evaluation of fever and generalized weakness. Patient is alert to person, place and time, reports that he is not feeling well. Patient reports that "I just feel weak." Patient denies any chest pain or shortness of breath or abdominal pain at this time. EMS reports that they were concerned as patient appeared lethargic to his daughter. PFSH Past Medical History Arthritis: Yes Blood Disorders: No Anxiety: Yes Cancer: Yes (prostate) High Cholesterol: Yes Chemotherapy: No Diabetes: Yes Diminished Hearing: No GERD: Yes Immune Disorder: No Neurologic: No Reproductive: No Respiratory: No Myocardial Infarction: Yes Radiation Therapy: Yes Past Surgical History Abdominal Surgery: Yes (CHOLECYSTECTOMY) Cholecystectomy: Yes Pacemaker: No Other Surgery: Yes (VEIN STRIPPING) Social History Alcohol Use: No Tobacco Use: No Substance Use: No Allergies-Medications (Allergen,Severity, Reaction): Coded Allergies: Latex (Verified Allergy, Mild, Itching, 06/03/17) MRI PRECAUTION (Verified Adverse Reaction, Severe, STAPES IMPLANT, 06/03/17 ) PT STATES BILATERAL STAPES IMPLANTS/JLA 05/28/17 Reported Meds & Prescriptions Reported Meds & Active Scripts Active Sucralfate Liq (Sucralfate) 1 Gm/10 Ml Franca 1 Gm PO ACHS Pantoprazole (Pantoprazole Sodium) 40 Mg Tab 40 Mg PO Q12HR Reported Simvastatin 40 Mg Tab 40 Mg PO HS Alprazolam 0.5 Mg Tab 0.5 Mg PO Q6H PRN Review of Systems General / Constitutional: Positive: Fever Eyes: No: Visual changes HENT: No: Headaches Cardiovascular: No: Chest Pain or Discomfort Respiratory: No: Shortness of Breath Gastrointestinal: No: Abdominal Pain Genitourinary: No: Dysuria Musculoskeletal: No: Pain Skin: No Rash Neurologic: Positive: Weakness Psychiatric: No: Depression Endocrine: No: Polydipsia Hematologic/Lymphatic: No: Easy Bruising Physical Exam Narrative GENERAL: Mild distress SKIN: Focused skin assessment warm/dry. HEAD: Atraumatic. Normocephalic. EYES: Pupils equal and round. No scleral icterus. No injection or drainage. ENT: No nasal bleeding or discharge. Mucous membranes pink and moist. NECK: Trachea midline. No JVD. CARDIOVASCULAR: Tachycardic. No murmur appreciated. RESPIRATORY: No accessory muscle use. Clear to auscultation. Breath sounds equal bilaterally. GASTROINTESTINAL: Abdomen soft, non-tender, nondistended. Hepatic and splenic margins not palpable. MUSCULOSKELETAL: No obvious deformities. No clubbing. No cyanosis. No edema. NEUROLOGICAL: Awake and alert. No obvious cranial nerve deficits. Motor grossly within normal limits. Normal speech. Data Data Last Documented VS Vital Signs Date Time Temp Pulse Resp B/P Pulse Ox O2 Delivery O2 Flow Rate FiO2 06/03/17 10:49 103 27 104/60 96 06/03/17 09:43 101.1 Orders Complete Blood Count With Diff (06/03/17 09:46) Comprehensive Metabolic Panel (06/03/17 09:46) Prothrombin Time / Inr (Pt) (06/03/17 09:46) Act Partial Throm Time (Ptt) (06/03/17 09:46) Lactic Acid Sepsis Protocol (06/03/17 09:46) Magnesium (Mg) (06/03/17 09:46) Lipase (06/03/17 09:46) Ckmb (Isoenzyme) Profile (06/03/17 09:46) Troponin I (06/03/17 09:46) Urinalysis - C+S If Indicated (06/03/17 09:46) Influenzae A/B Antigen (06/03/17 09:46) Blood Culture (06/03/17 09:46) Chest, Single Ap (06/03/17 09:46) Acetaminophen Supp (Tylenol Supp) (06/03/17 10:00) Sodium Chlor 0.9% 1000 Ml Inj (Ns 1000 M (06/03/17 10:00) CKMB (06/03/17 09:51) CKMB% (06/03/17 09:51) Ct Abd/Pel W/O Iv Contrast (06/03/17 10:49) Piperacil-Tazo 3.375 Gm Premix (Zosyn 3. (06/03/17 11:00) Vancomycin Inj (Vancomycin Inj) (06/03/17 11:00) Sodium Chlor 0.9% 1000 Ml Inj (Ns 1000 M (06/03/17 11:00) Ondansetron Inj (Zofran Inj) (06/03/17 11:00) Potassium Chloride (Kcl) (06/03/17 11:30) Electrocardiogram (06/03/17 09:44) Admit Order (Ed Use Only) (06/03/17 13:30) Labs Laboratory Tests Test 06/03/17 06/03/17 06/03/17 07:54 09:51 09:55 Urine Color DARK-BROWN Urine Turbidity HAZY Urine pH 6.0 Urine Specific [place] 1.018 Urine Protein 300 mg/dL Urine Glucose (UA) TRACE mg/dL Urine Ketones NEG mg/dL Urine Occult Blood MOD Urine Nitrite NEG Urine Bilirubin LARGE Urine Urobilinogen 8.0 MG/DL Urine Leukocyte Esterase NEG Urine RBC 2 /hpf Urine WBC 4 /hpf Urine Squamous Epithelial 2 /hpf Cells Urine Amorphous Sediment FEW Urine Bacteria RARE /hpf Urine Hyaline Casts 7 /lpf Urine Mucus FEW /lpf Microscopic Urinalysis Comment CULT NOT INDICATED White Blood Count 6.8 TH/MM3 Red Blood Count 4.71 MIL/MM3 Hemoglobin 13.5 GM/DL Hematocrit 38.4 % Mean Corpuscular Volume 81.6 FL Mean Corpuscular Hemoglobin 28.7 PG Mean Corpuscular Hemoglobin 35.2 % Concent Red Cell Distribution Width 14.7 % Platelet Count 135 TH/MM3 Mean Platelet Volume 7.5 FL Neutrophils (%) (Auto) % Lymphocytes (%) (Auto) % Monocytes (%) (Auto) % Eosinophils (%) (Auto) % Basophils (%) (Auto) % Neutrophils # (Auto) TH/MM3 Lymphocytes # (Auto) TH/MM3 Monocytes # (Auto) TH/MM3 Eosinophils # (Auto) TH/MM3 Basophils # (Auto) TH/MM3 CBC Comment AUTO DIFF Differential Total Cells 100 Counted Neutrophils % (Manual) 74 % Band Neutrophils % 6 % Lymphocytes % 8 % Neutrophils # (Manual) 6.3 TH/MM3 Metamyelocytes 12 % Differential Comment FINAL DIFF MANUAL Toxic Vacuolation PRESENT Dohle Bodies PRESENT Platelet Estimate LOW Platelet Morphology Comment NORMAL Prothrombin Time 13.8 SEC Prothromb Time International 1.2 RATIO Ratio Activated Partial 30.6 SEC Thromboplast Time Sodium Level 139 MEQ/L Potassium Level 3.4 MEQ/L Chloride Level 107 MEQ/L Carbon Dioxide Level 17.6 MEQ/L Anion Gap 14 MEQ/L Blood Urea Nitrogen 18 MG/DL Creatinine 2.22 MG/DL Estimat Glomerular Filtration 29 ML/MIN Rate Random Glucose 134 MG/DL Calcium Level 8.5 MG/DL Magnesium Level 1.4 MG/DL Total Bilirubin 5.4 MG/DL Aspartate Amino Transf 246 U/L (AST/SGOT) Alanine Aminotransferase 205 U/L (ALT/SGPT) Alkaline Phosphatase 226 U/L Total Creatine Kinase 120 U/L Creatine Kinase MB 0.6 NG/ML Troponin I 0.04 NG/ML Total Protein 6.5 GM/DL Albumin 2.3 GM/DL Lipase 412 U/L Lactic Acid Level 3.9 mmol/L MDM Medical Decision Making Medical Screen Exam Complete: Yes Emergency Medical Condition: Yes Interpretation(s) EKG at 0944: Normal sinus rhythm at 99 bpm, QT/QTc 316/372, no acute ST-T wave changes Vital Signs Date Time Temp Pulse Resp B/P Pulse Ox O2 Delivery O2 Flow Rate FiO2 06/03/17 09:43 101.1 100 22 114/55 93 Differential Diagnosis Differential includes sepsis from pneumonia, influenza, transaminitis, uti, viral infection, acs, arrhythmia, biliary colic, biliary obstruction Narrative Course 77 -year-old male who presents to emergency room from home for evaluation of generalized weakness and fever. Patient presents to emergency room with a temperature of 101.1, respiratory rate 22, pulse of 100, pulse ox of 93% on room air, sepsis labs drawn including lactic acid and blood cultures. Patient with no complaints except for generalized weakness and fever at this time. Plan to observe patient. Will give acetaminophen rectally, will give IV fluids. Patient was recently admitted to the hospital, will review medical records. Laboratory Tests Test 06/03/17 06/03/17 06/03/17 07:54 09:51 09:55 Urine Color DARK-BROWN (YELLW/STRAW) Urine Turbidity HAZY (CLEAR) Urine pH 6.0 (5.0-8.5) Urine Specific [place] 1.018 (1.002-1.035) Urine Protein 300 mg/dL (NEG-TRACE) Urine Glucose (UA) TRACE mg/dL (NEG) Urine Ketones NEG mg/dL (NEG) Urine Occult Blood MOD (NEG) Urine Nitrite NEG (NEG) Urine Bilirubin LARGE (NEG) Urine Urobilinogen 8.0 MG/DL (LESS THAN 2.0) Urine Leukocyte Esterase NEG (NEG) Urine RBC 2 /hpf (0-3) Urine WBC 4 /hpf (0-5) Urine Squamous Epithelial 2 /hpf (0-5) Cells Urine Amorphous Sediment FEW Urine Bacteria RARE /hpf (NONE) Urine Hyaline Casts 7 /lpf (RARE) Urine Mucus FEW /lpf (OCC) Microscopic Urinalysis Comment CULT NOT INDICATED White Blood Count 6.8 TH/MM3 (4.0-11.0) Red Blood Count 4.71 MIL/MM3 (4.50-5.90) Hemoglobin 13.5 GM/DL (13.0-17.0) Hematocrit 38.4 % (39.0-51.0) Mean Corpuscular Volume 81.6 FL (80.0-100.0) Mean Corpuscular Hemoglobin 28.7 PG (27.0-34.0) Mean Corpuscular Hemoglobin 35.2 % Concent (32.0-36.0) Red Cell Distribution Width 14.7 % (11.6-17.2) Platelet Count 135 TH/MM3 (150-450) Mean Platelet Volume 7.5 FL (7.0-11.0) Neutrophils (%) (Auto) % (16.0-70.0) Lymphocytes (%) (Auto) % (9.0-44.0) Monocytes (%) (Auto) % (0.0-8.0) Eosinophils (%) (Auto) % (0.0-4.0) Basophils (%) (Auto) % (0.0-2.0) Neutrophils # (Auto) TH/MM3 (1.8-7.7) Lymphocytes # (Auto) TH/MM3 (1.0-4.8) Monocytes # (Auto) TH/MM3 (0-0.9) Eosinophils # (Auto) TH/MM3 (0-0.4) Basophils # (Auto) TH/MM3 (0-0.2) CBC Comment AUTO DIFF Differential Total Cells 100 Counted Neutrophils % (Manual) 74 % (16-70) Band Neutrophils % 6 % (0-6) Lymphocytes % 8 % (9-44) Neutrophils # (Manual) 6.3 TH/MM3 (1.8-7.7) Metamyelocytes 12 % (0-1) Differential Comment FINAL DIFF MANUAL Toxic Vacuolation PRESENT (NONE SEEN) Dohle Bodies PRESENT (NONE SEEN) Platelet Estimate LOW (NORMAL) Platelet Morphology Comment NORMAL (NORMAL) Prothrombin Time 13.8 SEC (9.8-11.6) Prothromb Time International 1.2 RATIO Ratio Activated Partial 30.6 SEC Thromboplast Time (24.3-30.1) Sodium Level 139 MEQ/L (136-145) Potassium Level 3.4 MEQ/L (3.5-5.1) Chloride Level 107 MEQ/L (98-107) Carbon Dioxide Level 17.6 MEQ/L (21.0-32.0) Anion Gap 14 MEQ/L (5-15) Blood Urea Nitrogen 18 MG/DL (7-18) Creatinine 2.22 MG/DL (0.60-1.30) Estimat Glomerular Filtration 29 ML/MIN (>89) Rate Random Glucose 134 MG/DL (74-106) Calcium Level 8.5 MG/DL (8.5-10.1) Magnesium Level 1.4 MG/DL (1.5-2.5) Total Bilirubin 5.4 MG/DL (0.2-1.0) Aspartate Amino Transf 246 U/L (15-37) (AST/SGOT) Alanine Aminotransferase 205 U/L (12-78) (ALT/SGPT) Alkaline Phosphatase 226 U/L (45-117) Total Creatine Kinase 120 U/L (39-308) Creatine Kinase MB 0.6 NG/ML (0.5-3.6) Troponin I 0.04 NG/ML (0.02-0.05) Total Protein 6.5 GM/DL (6.4-8.2) Albumin 2.3 GM/DL (3.4-5.0) Lipase 412 U/L (73-393) Lactic Acid Level 3.9 mmol/L (0.4-2.0) Last Impressions Abdomen/Pelvis CT 06/03/17 1049 Signed Impressions: Service Date/Time: Saturday, June 03, 2017 11:22 - CONCLUSION: Enlarging common bile duct with suspected distal common bile duct stone. Status post cholecystectomy. Otherwise stable chest. Carlo Griggs MD Chest X-Ray 06/03/17 0946 Signed Impressions: Service Date/Time: Saturday, June 03, 2017 09:50 - CONCLUSION: Mild left basilar airspace disease. Otherwise stable chest. Carlo Griggs MD Patient with lactic acid of 3.9, patient was transaminitis as well as a creatinine of 2.22 which is elevated from his previous creatinine 1.53. Patient was pancultured, he was given a dose of Zosyn and vancomycin. Plan to admit him to Medicine service for further workup. Physician Communication Physician Communication case reviewed with Dr. Ridley who accepts pt to service Diagnosis Primary Impression: Transaminitis Additional Impressions: Sepsis Renal failure Admitting Information Admitting Physician Requests: Admit Nichole Duncan DO Jun 03, 2017 09:58
[2017-06-03] MEDS ORDERED: SODIUM CHLOR 0.9% 1000 ML INJ 1,000 ML IV ONE ×2 (10:00→11:00)
[2017-06-03] MEDS ORDERED: ACETAMINOPHEN 650 MG SUPP RECTAL ONE (10:00)
[2017-06-03 10:14] LABS: HEMATOCRIT 38.4 % (39.0-51.0); MEAN CELL VOLUME 81.6 FL (80.0-100.0); MEAN CORPUSCULAR HEMOGLOBIN 28.7 PG (27.0-34.0); MEAN CORPUSCULAR HGB CONC 35.2 % (32.0-36.0); PLATELET COUNT 135 TH/MM3 (150-450); RED BLOOD COUNT 4.71 MIL/MM3 (4.50-5.90); RED CELL DISTRIBUTION WIDTH 14.7 % (11.6-17.2); WHITE BLOOD COUNT 6.8 TH/MM3 (4.0-11.0)
[2017-06-03 10:19] LABS: BACTERIA, URINE RARE /hpf; BLOOD, URINE MOD (NEG); COMMENT (UR) CULT NOT INDICATED; CULTURE IF INDICATED CULT NOT INDICATED; GLUCOSE,URINE TRACE mg/dL (NEG); HYALINE CAST, URINE 7 /lpf (RARE); KETONE, URINE NEG (NEG); MUCUS URINE FEW /lpf (OCC); NITRITE,URINE NEG (NEG); SQUAMOUS EPITHELIAL CELL URINE 2 /hpf (0-5)
[2017-06-03 10:21] LABS: URINE COLOR DARK-BROWN (YELLW/STRAW)
[2017-06-03 10:22] LABS: APTT (PATIENT) 30.6 SEC (24.3-30.1); HEMO FLAGS AUTO DIFF; INTERNATIONAL NORMALIZED RATIO 1.2 RATIO; PROTHROMBIN TIME - PATIENT 13.8 SEC (9.8-11.6)
--- NOTE | 2017-06-03 10:25 | RADRPT ---
EXAM DATE/TIME: 06/03/2017 09:50 [facility] COMPARISON: CHEST SINGLE AP, May 28, 2017, 11:04. INDICATIONS : Fever. MEDICAL HISTORY : Diabetes mellitus type II. Myocardial infarction. Gastroesophageal reflux disease. SURGICAL HISTORY : Cholecystectomy. ENCOUNTER: Initial ACUITY: 1 day PAIN SCORE: 0/10 LOCATION: Bilateral chest FINDINGS: Mild increased density is seen along the left hemidiaphragm. Lungs are otherwise clear. Heart and mediastinal structures are stable. CONCLUSION: Mild left basilar airspace disease. Otherwise stable chest. Carlo Griggs MD on June 03, 2017 at 10:22 Board Certified Radiologist. This report was verified electronically.
[2017-06-03 10:36] LABS: ALKALINE PHOSPHATASE 226 U/L (45-117); ALT (GPT) 205 U/L (12-78); ANION GAP 14 MEQ/L (5-15); AST (GOT) 246 U/L (15-37); BICARBONATE 17.6 MEQ/L (21.0-32.0); BLOOD UREA NITROGEN 18 MG/DL (7-18); CHLORIDE 107 MEQ/L (98-107); CREATINE KINASE 120 U/L (39-308); GLOMERULAR FILTRATION RATE 29 ML/MIN (>89); MAGNESIUM 1.4 MG/DL (1.5-2.5); POTASSIUM 3.4 MEQ/L (3.5-5.1); SODIUM (NA) 139 MEQ/L (136-145); TOTAL BILIRUBIN ADULT 5.4 MG/DL (0.2-1.0)
[2017-06-03 10:55] LABS: BANDS 6 % (0-6); METAMYELOCYTES 12 % (0-1); NEUTROPHIL # MANUAL DIFF 6.3 TH/MM3 (1.8-7.7); POLYS (SEG NEUTROPHILS) 74 % (16-70); TOXIC VACUOLATION PRESENT (NONE SEEN); WBC DIFF SAMPLE 100
[2017-06-03 10:56] LABS: DOHLE BODIES PRESENT (NONE SEEN); PLATELET ESTIMATE SMEAR LOW (NORMAL); PLATELET MORPHOLOGY NORMAL (NORMAL); SCAN/DIFF FINAL DIFF MANUAL
[2017-06-03 10:59] LABS: CKMB 0.6 NG/ML (0.5-3.6)
[2017-06-03] MEDS ORDERED: PIPERACIL-TAZO 3.375 GM PREMIX 50 ML IV ONE (11:00)
[2017-06-03] MEDS ORDERED: VANCOMYCIN INJ 1,350 MG in SODIUM CHLORID 0.9% 500 ML INJ 500 ML IV ONE (11:00)
[2017-06-03] MEDS ORDERED: ONDANSETRON HCL 4 MG/2 ML VIAL IV PUSH ONE (11:00)
[2017-06-03] MEDS ORDERED: POTASSIUM CHLORIDE 10 MEQ CONTROLLED RELEASE TAB PO ONE (11:30)
--- NOTE | 2017-06-03 11:59 | RADRPT ---
EXAM DATE/TIME: 06/03/2017 11:22 [facility] COMPARISON: CT ABDOMEN & PELVIS W/O CONTRAST, May 28, 2017, 12:05. INDICATIONS : Right upper abdomen pain today. ORAL CONTRAST: No oral contrast ingested. RADIATION DOSE: 12.36 CTDIvol (mGy) MEDICAL HISTORY : Carcinoma, prostate. diabetes SURGICAL HISTORY : Cholecystectomy. ENCOUNTER: Initial ACUITY: 1 day PAIN SCALE: 7/10 LOCATION: Right upper quadrant TECHNIQUE: Volumetric scanning of the abdomen and pelvis was performed. Using automated exposure control and ad justment of the mA and/or kV according to patient size, radiation dose was kept as low as reasonably achievable to obtain optimal diagnostic quality images. DICOM format image data is available electro nically for review and comparison. FINDINGS: Compared to the patient's most recent evaluation there has been enlargement of the common bile duct w hich now measures 2 cm in diameter at the pancreatic head. A focal calcification is identified betwee n the common bile duct and duodenum characteristic of a distal common bile duct stone. The common hep atic ducts appear enlarged however the peripheral intrahepatic ducts are not significantly distended. The liver, spleen, pancreas adrenal glands and kidneys are otherwise stable. There is no free fluid in the abdomen Bilateral hip prostheses are again noted. CONCLUSION: Enlarging common bile duct with suspected distal common bile duct stone. Status post cholecystectomy. Otherwise stable chest. Carlo Griggs MD on June 03, 2017 at 11:53 Board Certified Radiologist. This report was verified electronically.
[2017-06-03 12:01] LABS: LACTIC ACID GHOST NOT REPORTABLE
--- NOTE | 2017-06-03 13:51 | HHI.HP ---
[facility] Primary Care Physician Nancy Callejas MD Admission Diagnosis Sepsis, transaminitis Diagnoses: (1) Elevated LFTs Diagnosis: Principal Chief Complaint: abdominal pain Travel History International Travel<30 Days: No Contact w/Intl Traveler <30 Da: No Traveled to Known Affected Are: No Sepsis Criteria SIRS Criteria (2 or more): Temp > 100.9 or < 96.8, Heart rate over 90 Sepsis Criteria (SIRS+source): Infect source susp/known Criteria Outcome: Meets sepsis criteria History of Present Illness patient is a 77 y/o male with history of hypertension, diabetes, prostate cancer , PUD- s/p cholecystectomy, who was just discharged from the hospital after he was admitted with abdominal pain. during that admission, he underwent ERCP and was discharged home with outpatient follow-up. he says that when he went home he started to have abdominal pain again. pain was more or less generalized and severe in intensity. it was associated with nausea and several episodes of emesis. he had some chills and night sweats.at the time of my evaluation he was still complaining of abdominal pain and nausea. he had a fever of 101 at the time of presentation. Review of Systems Constitutional: COMPLAINS OF: Fever, Chills, Night Sweats, DENIES: Weight loss Eyes: DENIES: Blurred vision, Diplopia, Vision loss, Double Vision Ears, nose, mouth, throat: DENIES: Tinnitus, Vertigo, Throat pain, Epistaxis Respiratory: DENIES: Apneas, Cough, Snoring, Wheezing, Hemoptysis, Sputum production, Shortness of breath Cardiovascular: DENIES: Chest pain, Palpitations, Syncope, Dyspnea on Exertion , PND, Lower Extremity Edema, Orthopnea, Claudication Gastrointestinal: COMPLAINS OF: Abdominal pain, Nausea, Vomiting, DENIES: Black stools, Bloody stools, Constipation, Diarrhea, Difficulty Swallowing, Anorexia Genitourinary: DENIES: Urinary frequency, Urgency, Hematuria, Dysuria Musculoskeletal: DENIES: Joint pain, Muscle aches, Stiffness, Joint Swelling Integumentary: DENIES: Rash Neurologic: DENIES: Abnormal gait, Headache, Localized weakness, Paresthesias, Seizures, Speech Problems, Tremor, Poor Balance Psychiatric: DENIES: Anxiety, Confusion, Mood changes, Depression, Hallucinations, Agitation, Suicidal Ideation, Homicidal Ideation, Delusions Past Family Social History Past Medical History hypertension diabetes mellitus prostate cancer PUD Past Surgical History cholecystectomy hip replacement Reported Medications Sucralfate Liq (Sucralfate) 1 Gm/10 Ml Franca 1 Gm PO ACHS Pantoprazole (Pantoprazole Sodium) 40 Mg Tab 40 Mg PO Q12HR Reported Simvastatin 40 Mg Tab 40 Mg PO HS Alprazolam 0.5 Mg Tab 0.5 Mg PO Q6H PRN Allergies: Coded Allergies: Latex (Verified Allergy, Mild, Itching, 06/03/17) MRI PRECAUTION (Verified Adverse Reaction, Severe, STAPES IMPLANT, 06/03/17 ) PT STATES BILATERAL STAPES IMPLANTS/JLA 05/28/17 Active Ordered Medications Current Medications Acetaminophen 650 mg 650 mg ONCE ONCE RECTAL Last administered on 06/03/17 10 :08; Start 06/03/17 at 10:00; Stop 06/03/17 at 10:01; Status DC Sodium Chloride 1,000 ml @ 999 mls/hr BOLUS ONCE IV Last administered on 06/03 10:08; Start 06/03/17 at 10:00; Stop 06/03/17 at 11:00; Status DC Piperacillin Sod/ Tazobactam Sod 50 ml @ 100 mls/hr ONCE ONCE IV Last administered on 06/03/17 10:58; Start 06/03/17 at 11:00; Stop 06/03/17 at 11:29 ; Status DC Vancomycin HCl 1350 mg/Sodium Chloride 513.5 ml @ 250 mls/hr ONCE ONCE IV Last administered on 06/03/17 12:06; Start 06/03/17 at 11:00; Stop 06/03/17 at 13:03; Status DC Sodium Chloride (NS 1000 ml Inj) 1,000 ml @ 999 mls/hr BOLUS ONCE IV Last administered on 06/03/17 10:58; Start 06/03/17 at 11:00; Stop 06/03/17 at 12:00 ; Status DC Ondansetron HCl (Zofran Inj) 4 mg ONCE ONCE IV PUSH Last administered on 11:14; Start 06/03/17 at 11:00; Stop 06/03/17 at 11:01; Status DC Potassium Chloride (KCl) 30 meq ONCE ONCE PO Last administered on 06/03/17t 12 :37; Start 06/03/17 at 11:30; Stop 06/03/17 at 11:31; Status DC Family History hypertension Social History quit smoking and drinking years ago. Physical Exam Vital Signs Vital Signs Date Time Temp Pulse Resp B/P Pulse Ox O2 Delivery O2 Flow Rate FiO2 06/03/17 10:49 103 27 104/60 96 06/03/17 09:43 101.1 100 22 114/55 93 Physical Exam GENERAL: This is a well-nourished, well-developed patient, in no apparent distress. SKIN: No rashes, ecchymoses or lesions. Cool and dry. HEAD: Atraumatic. Normocephalic. No temporal or scalp tenderness. EYES: Pupils equal round and reactive. Extraocular motions intact. No scleral icterus. No injection or drainage. ENT: Nose without bleeding, purulent drainage or septal hematoma. Throat without erythema, tonsillar hypertrophy or exudate. Uvula midline. Airway patent. NECK: Trachea midline. No JVD or lymphadenopathy. Supple, nontender, no meningeal signs. CARDIOVASCULAR: Regular rate and rhythm without murmurs, gallops, or rubs. RESPIRATORY: Clear to auscultation. Breath sounds equal bilaterally. No wheezes , rales, or rhonchi. GASTROINTESTINAL: Abdomen soft, generalized tenderness, nondistended. No hepato- splenomegaly, or palpable masses. No guarding. MUSCULOSKELETAL: Extremities without clubbing, cyanosis, or edema. No joint tenderness, effusion, or edema noted. No calf tenderness. Negative Homans sign bilaterally. NEUROLOGICAL: Awake and alert. Cranial nerves II through XII intact. Motor and sensory grossly within normal limits. Five out of 5 muscle strength in all muscle groups. Normal speech. Laboratory Laboratory Tests Test 06/03/17 06/03/17 06/03/17 07:54 09:51 09:55 Urine Color DARK-BROWN Urine Turbidity HAZY Urine pH 6.0 Urine Specific [place] 1.018 Urine Protein 300 Urine Glucose (UA) TRACE Urine Ketones NEG Urine Occult Blood MOD Urine Nitrite NEG Urine Bilirubin LARGE Urine Urobilinogen 8.0 Urine Leukocyte Esterase NEG Urine RBC 2 Urine WBC 4 Urine Squamous Epithelial 2 Cells Urine Amorphous Sediment FEW Urine Bacteria RARE Urine Hyaline Casts 7 Urine Mucus FEW Microscopic Urinalysis Comment CULT NOT INDICATED White Blood Count 6.8 Red Blood Count 4.71 Hemoglobin 13.5 Hematocrit 38.4 Mean Corpuscular Volume 81.6 Mean Corpuscular Hemoglobin 28.7 Mean Corpuscular Hemoglobin 35.2 Concent Red Cell Distribution Width 14.7 Platelet Count 135 Mean Platelet Volume 7.5 Neutrophils (%) (Auto) Lymphocytes (%) (Auto) Monocytes (%) (Auto) Eosinophils (%) (Auto) Basophils (%) (Auto) Neutrophils # (Auto) Lymphocytes # (Auto) Monocytes # (Auto) Eosinophils # (Auto) Basophils # (Auto) CBC Comment AUTO DIFF Differential Total Cells 100 Counted Neutrophils % (Manual) 74 Band Neutrophils % 6 Lymphocytes % 8 Neutrophils # (Manual) 6.3 Metamyelocytes 12 Differential Comment FINAL DIFF MANUAL Toxic Vacuolation PRESENT Dohle Bodies PRESENT Platelet Estimate LOW Platelet Morphology Comment NORMAL Prothrombin Time 13.8 Prothromb Time International 1.2 Ratio Activated Partial 30.6 Thromboplast Time Sodium Level 139 Potassium Level 3.4 Chloride Level 107 Carbon Dioxide Level 17.6 Anion Gap 14 Blood Urea Nitrogen 18 Creatinine 2.22 Estimat Glomerular Filtration 29 Rate Random Glucose 134 Calcium Level 8.5 Magnesium Level 1.4 Total Bilirubin 5.4 Aspartate Amino Transf 246 (AST/SGOT) Alanine Aminotransferase 205 (ALT/SGPT) Alkaline Phosphatase 226 Total Creatine Kinase 120 Creatine Kinase MB 0.6 Troponin I 0.04 Total Protein 6.5 Albumin 2.3 Lipase 412 Lactic Acid Level 3.9 Date/Time Procedure Status Source Growth 06/03/17 09:57 Influenza Types A,B Antigen (FARHAD) - Final Complete Nasal Aspirate NEGATIVE FOR FLU A AND B ANTIGEN.... 06/03/17 09:57 Aerobic Blood Culture Received Blood Peripheral Pending 06/03/17 09:57 Anaerobic Blood Culture Received Blood Peripheral Pending Result Diagram: 06/03/1751 06/03/1751 Imaging Last Impressions Abdomen/Pelvis CT 06/03/17 1049 Signed Impressions: Service Date/Time: Saturday, June 03, 2017 11:22 - CONCLUSION: Enlarging common bile duct with suspected distal common bile duct stone. Status post cholecystectomy. Otherwise stable chest. Carlo Griggs MD Chest X-Ray 06/03/17 0946 Signed Impressions: Service Date/Time: Saturday, June 03, 2017 09:50 - CONCLUSION: Mild left basilar airspace disease. Otherwise stable chest. Carlo Griggs MD Assessment and Plan Assessment and Plan A/P 77 y/o male who was just discharged from the hospital and underwent ERCP presented with recurrent abdominal pain; - sepsis - with possible GI source continue IV zosyn- will follow the blood cultures and monitor temps -elevated LFT's with possible common bile duct stone keep NPO- start IV fluid- continue with pain control- will consult GI- monitor LFT's -acute kidney injury superimposed on chronic renal insufficiency continue with IV fluid- monitor I/O and renal function -PUD; continue protonix -dyslipidemia; hold statin due to elevated LFT's -DVT prophylaxis with SCD's Discussed Condition With ER physician and the patient. Physician Certification 2 Midnight Certification Type: Admission for Inpatient Services Order for Inpatient Services The services are ordered in accordance with Medicare regulations or non- Medicare payer requirements, as applicable. In the case of services not specified as inpatient-only, they are appropriately provided as inpatient services in accordance with the 2-midnight benchmark. Estimated LOS (days): 2 days is the estimated time the patient will need to remain in the hospital, assuming treatment plan goals are met and no additional complications. Post-Hospital Plan: Home Nancy Corona MD Jun 03, 2017 13:51
[2017-06-03] MEDS ORDERED: ONDANSETRON HCL 4 MG/2 ML VIAL IV PUSH PRN (14:00)
[2017-06-03] MEDS: PANTOPRAZOLE SODIUM 40 MG VIAL IV PUSH SCH (14:54)
[2017-06-03] MEDS: SODIUM CHLOR 0.9% 1000 ML INJ 1,000 ML IV SCH (14:54)
[2017-06-03] MEDS ORDERED: SODIUM CHLORID 0.9% 500 ML INJ 500 ML IV ONE (16:00)
--- NOTE | 2017-06-03 17:15 | MB ---
cc: MARKUS SAMS MD DATE OF CONSULTATION 06/03/17 1939 REASON FOR REFERRAL Elevated liver function test and possible common bile duct stone. HISTORY OF PRESENT ILLNESS Thank you for the consultation. This is a pleasant 77-year-old gentleman with multiple medical problems. The patient was in the hospital recently for abdominal pain. He had an ERCP and was discharged home with outpatient followup. He stated when he went home he started having significant abdominal pain again and he came back because of that. A CT scan showed possible common bile duct in the distal duct and significant elevation of his liver function tests. He still continues with abdominal pain and nausea with low grade temperature. PAST MEDICAL HISTORY 1. Diabetes, 2. Prostate cancer, 3. Hypertension 4. Peptic ulcer disease. PAST SURGICAL HISTORY 1. Hip replacement 2. Cholecystectomy. MEDICATIONS Reviewed in the chart. ALLERGIES LATEX MRI DYE SOCIAL HISTORY He denied tobacco or alcohol for about a year. Before that, he used to smoke and drink alcohol. FAMILY HISTORY Significant for hypertension. PHYSICAL EXAMINATION GENERAL: Alert, oriented in no acute distress at this time, laying in bed complaining of abdominal pain. VITAL SIGNS: Stable. HEENT: Pupils are round, reactive to light. NECK: Supple. CHEST: Clear to auscultation and percussion. CARDIAC: Regular rate and rhythm. No murmur or gallop. ABDOMEN: Soft, diffuse tenderness mostly in the mid epigastric area and some to the right upper quadrant. No hepatosplenomegaly that I could appreciate. EXTREMITIES: No edema, clubbing or cyanosis. NEUROLOGIC: Intact within normal limits and normal speech and normal strength of extremities and muscle. LABORATORY DATA White count 6.8, hemoglobin 13.5, platelets 135, INR 1.2. Sodium 139, potassium 3.4, creatinine 2.22, AST 246, ALT 205, alkaline phosphatase 226, total bilirubin 5.4, lipase 412, albumin 2.3. IMAGING STUDIES CT scan showed a large common bile duct, suspected distal common bile duct stone status post cholecystectomy. ASSESSMENT/PLAN A 77-year-old gentleman who had elevated liver function test and possible common bile duct. She had recent ERCP which showed large periampullary diverticulum, multiple large ulcerations in the duodenum in the second portion. There were areas of ulcerations but not able to cannulate the duct due to significant inflammation of the area. Recommendation was to consider PTC and repeat ERCP in two weeks. I recommend that we will another ERCP tomorrow. If not able to find the ampulla, then we will ask radiology to do a PTC on him and then later on we can do sphincterotomy with procedure stone extraction. The patient understands the plan and I will plan on doing this tomorrow. Meanwhile, we will continue antibiotics and supportive care. IDENTIFICATION Thank you MD TOPHER Berman/ /4:43 PM /5:04 PM
[2017-06-03] MEDS: PIPERACIL-TAZO 2.25 GM PREMIX 50 ML IV SCH ×2 (17:48→22:48)
[2017-06-03] MEDS: HYDROmorphone HCL PF 1 MG/ML VIAL IV PUSH PRN (20:06)
[2017-06-03] MEDS: ALPRAZolam 0.5 MG TAB PO PRN (21:41)
[2017-06-04] VITALS: BP 97/66; PULSE 85; RESP 17; TEMP 96.5; O2SAT 97
[2017-06-04] MEDS: ZOLPIDEM TARTRATE 5 MG TAB PO PRN ×2 (01:01→22:42)
[2017-06-04] MEDS ORDERED: LACTATED RINGER'S 1000 ML IV PRN (05:30)
[2017-06-04] MEDS: PIPERACIL-TAZO 2.25 GM PREMIX 50 ML IV SCH ×4 (06:08→22:41)
[2017-06-04 06:37] LABS: AUTOMATED NEUTROPHIL # 21.4 TH/MM3 (1.8-7.7); BASOPHIL # 0.1 TH/MM3 (0-0.2); BASOPHIL % 0.3 % (0.0-2.0); EOSINOPHIL # 0.3 TH/MM3 (0-0.4); EOSINOPHIL % 1.4 % (0.0-4.0); HEMATOCRIT 34.7 % (39.0-51.0); LYMPH % 5.6 % (9.0-44.0); LYMPHOCYTE # 1.3 TH/MM3 (1.0-4.8); MEAN CELL VOLUME 83.4 FL (80.0-100.0); MEAN CORPUSCULAR HEMOGLOBIN 27.8 PG (27.0-34.0); MEAN CORPUSCULAR HGB CONC 33.3 % (32.0-36.0); MONO % 3.4 % (0.0-8.0); NEUT % 89.3 % (16.0-70.0); PLATELET COUNT 102 TH/MM3 (150-450); RED BLOOD COUNT 4.16 MIL/MM3 (4.50-5.90); WHITE BLOOD COUNT 23.9 TH/MM3 (4.0-11.0)
[2017-06-04 06:38] LABS: HEMO FLAGS AUTO DIFF
[2017-06-04] MEDS: HYDROmorphone HCL PF 1 MG/ML VIAL IV PUSH PRN ×4 (06:41→22:42)
[2017-06-04 06:59] LABS: ANION GAP 9 MEQ/L (5-15); AST (GOT) 331 U/L (15-37); BICARBONATE 18.1 MEQ/L (21.0-32.0); BLOOD UREA NITROGEN 25 MG/DL (7-18); CHLORIDE 113 MEQ/L (98-107); GLOMERULAR FILTRATION RATE 27 ML/MIN (>89); MAGNESIUM 1.6 MG/DL (1.5-2.5); SODIUM (NA) 140 MEQ/L (136-145)
[2017-06-04 07:00] LABS: ALT (GPT) 252 U/L (12-78)
[2017-06-04 07:04] LABS: ALKALINE PHOSPHATASE 115 U/L (45-117); TOTAL BILIRUBIN ADULT 2.7 MG/DL (0.2-1.0)
[2017-06-04 07:19] LABS: BANDS 17 % (0-6); NEUTROPHIL # MANUAL DIFF 22.2 TH/MM3 (1.8-7.7); PLATELET ESTIMATE SMEAR LOW (NORMAL); POLYS (SEG NEUTROPHILS) 76 % (16-70); WBC DIFF SAMPLE 100
[2017-06-04 07:20] LABS: PLATELET MORPHOLOGY NORMAL (NORMAL)
[2017-06-04 07:22] LABS: DOHLE BODIES PRESENT (NONE SEEN); SCAN/DIFF FINAL DIFF MANUAL; TOXIC VACUOLATION PRESENT (NONE SEEN)
[2017-06-04 08:00] VITALS: BP 108/60; PULSE 92; RESP 20; TEMP 98.1; O2SAT 98
[2017-06-04] MEDS: SODIUM CHLOR 0.9% 1000 ML INJ 1,000 ML IV SCH ×3 (08:40→20:38)
--- NOTE | 2017-06-04 10:27 | HHI.PR ---
Subjective Remarks Acute events overnight. Afebrile, vital signs stable. Patient continues to complain of severe, diffuse abdominal pain. Worse with palpation. Denies nausea/vomiting since yesterday. No diarrhea. Denies subjective fever/chills. Objective Vitals Vital Signs Date Time Temp Pulse Resp B/P Pulse Ox O2 Delivery O2 Flow Rate FiO2 06/04/17 08:00 98.1 92 20 108/60 98 06/04/17 00:00 96.5 85 17 97/66 97 06/03/17 20:00 98.5 95 17 111/67 97 06/03/17 17:16 97.9 102 16 97/60 95 06/03/17 15:43 99 16 102/60 99 Room Air 06/03/17 15:35 100 18 100/60 99 Room Air 06/03/17 15:24 102 16 92/56 100 Room Air 06/03/17 14:42 102 22 92/57 99 Room Air 06/03/17 10:49 103 27 104/60 96 I/O 06/03/17 06/03/17 06/03/17 06/04/17 06/04/17 06/04/17 07:00 15:00 23:00 07:00 15:00 23:00 Intake Total 876 ml 1208 ml 0 ml Output Total 300 ml 450 ml Balance 576 ml 758 ml 0 ml Intake Oral 240 ml 240 ml 0 ml IV Total 636 ml 968 ml Output Urine Total 300 ml 450 ml # Voids 2 Result Diagram: 06/04/1761806/04/17618 Objective Remarks Gen.: No acute distress Head: Normocephalic. Atraumatic. EENT: Pupils equal round and reactive to light. Nose without drainage. Airway intact. Throat without injection. Cardiovascular: Regular rate and rhythm. No murmurs, rubs or gallops. Respiratory: Lungs clear to auscultation bilaterally. No wheezes or rhonchi. Abdomen: Soft, nondistended. Exquisitely tender to palpation in all 4 quadrants. Musculoskeletal: No gross deformities. No edema. Skin: No obvious rashes or erythema. Neuro: Sensory and motor grossly intact. Cranial nerves II through XII grossly intact. Psych: Appropriate mood and affect A/P Problem List: (1) Elevated LFTs ICD Code: R79.89 Status: Acute Assessment and Plan 77 y/o male who was just discharged from the hospital and underwent ERCP presented with recurrent abdominal pain; - sepsis - with possible GI source. Blood cultures positive for gram-negative rods. continue IV zosyn- will follow the blood cultures and monitor temps. Lactic acid downtrending. Consult infectious disease. -elevated LFT's with possible common bile duct stone keep NPO- start IV fluid- continue with pain control- gastroenterology consulted, patient will have repeat ERCP today -acute kidney injury superimposed on chronic renal insufficiency continue with IV fluid- monitor I/O and renal function -PUD; continue protonix -dyslipidemia; hold statin due to elevated LFT's -DVT prophylaxis with SCD's Nichole Mcdonnell MD R3 Jun 04, 2017 10:27
[2017-06-04] MEDS: ALPRAZolam 0.5 MG TAB PO PRN ×2 (11:48→20:39)
[2017-06-04 12:00] VITALS: BP 117/62; PULSE 93; RESP 19; TEMP 98.1; O2SAT 97
[2017-06-04] MEDS ORDERED: ONDANSETRON HCL 4 MG/2 ML VIAL IV PUSH ONE (12:00)
[2017-06-04] MEDS ORDERED: ePHEDrine/NS 25 MG/5 ML SYR IV ONE (12:00)
--- NOTE | 2017-06-04 12:45 | EKG ---
Date Performed: 06/03/2017 Time Performed: 09:44:35 PTAGE: 77 years EKG: Sinus rhythm Compared to prior tracing no significant change NORMAL ECG PREVIOUS TRACING : 05/28/2017 11.25 DOCTOR: Quinn Gil Interpretating Date/Time 06/04/2017 12:37:03
[2017-06-04] MEDS ORDERED: IOHEXOL 300 MG/ML 50 ML BTL (for RAD DIAG) ONE (14:00)
[2017-06-04] MEDS: PANTOPRAZOLE SODIUM 40 MG VIAL IV PUSH SCH (14:00)
[2017-06-04] MEDS ORDERED: DO NOT ADM ANY ANTICOAGULANT DRUGS PRN (15:15)
--- NOTE | 2017-06-04 15:22 | RADRPT ---
EXAM DATE/TIME: 06/04/2017 14:02 [place] COMPARISON: No previous studies available for comparison. INDICATIONS : ERCP with gallstone removal. FLUORO TIME: 3.30 minutes IMAGE COUNT: 1 CONTRAST: Instilled by Ordering Physician MEDICAL HISTORY : Hypercholesterolemia. Gastroesophageal reflux disease. Myocardial infarction.Diabetes. Anxiety. Arthr itis. SURGICAL HISTORY : Cholecystectomy. Bilateral hip replacement. Vein stripping. ENCOUNTER: Initial ACUITY: 1 day PAIN SCORE: Non-responsive. LOCATION: abdomen FINDINGS: An ERCP was performed by the ordering physician. The images demonstrate dilated common bile duct. CONCLUSION: ERCP as above. Trinidad Bermudez MD on June 04, 2017 at 15:20 Board Certified Radiologist. This report was verified electronically.
--- NOTE | 2017-06-04 15:40 | PD.ID.CON ---
History of Present Illness Service ID Consult Requested By Dr Mcdonnell Reason for Consult sepsos, positive blood clx Primary Care Physician Nancy Callejas MD Diagnoses: History of Present Illness patient is a 77 y/o male with history of hypertension, diabetes, prostate cancer , PUD- s/p cholecystectomy, Pt was just discharged home from the hospital post ERCP He started to have abdominal pain again. associated with nausea and several episodes of emesis, chills and night sweats Pt had a fever of 101.1 at the time of presentation. He also has lactic acidosis peaked at 4.9 and WBC of 23 K He has jaundice and elevated LFTs Pt was seen by [facility] and underwent another ERCP today , a large stone was extracted , he feels much better Pt is growing E.coli in 2/2 blood clx Review of Systems Except as stated in HPI: all other systems reviewed are Neg Past Family Social History Allergies: Coded Allergies: Latex (Verified Allergy, Mild, Itching, 06/03/17) MRI PRECAUTION (Verified Adverse Reaction, Severe, STAPES IMPLANT, 06/03/17 ) PT STATES BILATERAL STAPES IMPLANTS/JLA 05/28/17 Past Medical History hypertension diabetes mellitus prostate cancer PUD Past Surgical History cholecystectomy hip replacement Active Ordered Medications Medications where reviewed in EMR Antibiotics Include: zosyn Family History hypertension Social History quit smoking and drinking years ago. Physical Exam Vital Signs Vital Signs Date Time Temp Pulse Resp B/P Pulse Ox O2 Delivery O2 Flow Rate FiO2 06/04/17 15:17 95 16 161/89 100 Nasal Cannula 2 06/04/17 15:00 97 16 158/81 100 Nasal Cannula 2 06/04/17 14:45 98 16 160/79 100 Nasal Cannula 2 06/04/17 14:41 98.8 101 16 169/81 99 Nasal Cannula 2 06/04/17 12:00 98.1 93 19 117/62 97 06/04/17 08:00 98.1 92 20 108/60 98 06/04/17 00:00 96.5 85 17 97/66 97 06/03/17 20:00 98.5 95 17 111/67 97 06/03/17 17:16 97.9 102 16 97/60 95 06/03/17 15:43 99 16 102/60 99 Room Air Physical Exam CONSTITUTIONAL/GENERAL: This is an adequately nourished patient, in no apparent distress. TUBES/LINES/DRAINS: SKIN: No jaundice, rashes, or lesions. Skin temperature appropriate. Not diaphoretic. HEAD: Atraumatic. Normocephalic. EYES: Pupils equal and round and reactive. Extraocular motions intact. No scleral icterus. No injection or drainage. Fundi not examined. ENT: Hearing grossly normal. Nose without bleeding or purulent drainage. Throat without visible erythema, exudates, masses, or lesions. NECK: Trachea midline. Supple, nontender. CARDIOVASCULAR: Regular rate and rhythm without murmurs, gallops, or rubs. No JVD. Peripheral pulses symmetric. RESPIRATORY/CHEST: Symmetric, unlabored respirations. Clear to auscultation. Breath sounds equal bilaterally. No wheezes, rales, or rhonchi. GASTROINTESTINAL: Abdomen soft, mildly tender to palppation w/o guarding or rebound, nondistended. No hepato-splenomegaly, or palpable masses. No guarding. Bowel sounds present. GENITOURINARY: Without palpable bladder distension. MUSCULOSKELETAL: Extremities without clubbing, cyanosis, or edema. No joint tenderness or effusion noted. No calf tenderness. No mottling or clubbing. LYMPHATICS: No palpable cervical or supraclavicular adenopathy. NEUROLOGICAL: Awake and alert. Motor and sensory grossly within normal limits. Follows commands. Clear speech Moves all extremities. PSYCHIATRIC: No obvious anxiety/depression. no apparent hallucinations or other psychotic thought process. Laboratory Laboratory Tests Test 06/04/17 06:19 White Blood Count 23.9 Red Blood Count 4.16 Hemoglobin 11.5 Hematocrit 34.7 Mean Corpuscular Volume 83.4 Mean Corpuscular Hemoglobin 27.8 Mean Corpuscular Hemoglobin 33.3 Concent Red Cell Distribution Width 15.0 Platelet Count 102 Mean Platelet Volume 7.7 Neutrophils (%) (Auto) 89.3 Lymphocytes (%) (Auto) 5.6 Monocytes (%) (Auto) 3.4 Eosinophils (%) (Auto) 1.4 Basophils (%) (Auto) 0.3 Neutrophils # (Auto) 21.4 Lymphocytes # (Auto) 1.3 Monocytes # (Auto) 0.8 Eosinophils # (Auto) 0.3 Basophils # (Auto) 0.1 CBC Comment AUTO DIFF Differential Total Cells 100 Counted Neutrophils % (Manual) 76 Band Neutrophils % 17 Lymphocytes % 6 Monocytes % 1 Neutrophils # (Manual) 22.2 Differential Comment FINAL DIFF MANUAL Toxic Vacuolation PRESENT Dohle Bodies PRESENT Platelet Estimate LOW Platelet Morphology Comment NORMAL Sodium Level 140 Potassium Level 4.0 Chloride Level 113 Carbon Dioxide Level 18.1 Anion Gap 9 Blood Urea Nitrogen 25 Creatinine 2.37 Estimat Glomerular Filtration 27 Rate Random Glucose 90 Lactic Acid Level 2.1 Calcium Level 7.7 Magnesium Level 1.6 Total Bilirubin 2.7 Aspartate Amino Transf 331 (AST/SGOT) Alanine Aminotransferase 252 (ALT/SGPT) Alkaline Phosphatase 115 Total Protein 5.7 Albumin 1.9 Date/Time Procedure Status Source Growth 06/03/17 09:57 Influenza Types A,B Antigen (FARHAD) - Final Complete Nasal Aspirate NEGATIVE FOR FLU A AND B ANTIGEN.... 06/03/17 09:57 Aerobic Blood Culture - Preliminary Resulted Blood Peripheral NO GROWTH IN 1 DAY 06/03/17 09:57 Anaerobic Blood Culture - Preliminary Resulted Gram Negative Marc Result Diagram: 06/04/17 0619 06/04/17 0619 Imaging Last Impressions GI Procedure 06/04/17 0000 Signed Impressions: Service Date/Time: Sunday, June 04, 2017 14:02 - CONCLUSION: ERCP as above. K. Joel Bermudez MD Abdomen/Pelvis CT 06/03/17 1049 Signed Impressions: Service Date/Time: Saturday, June 03, 2017 11:22 - CONCLUSION: Enlarging common bile duct with suspected distal common bile duct stone. Status post cholecystectomy. Otherwise stable chest. Carlo Griggs MD Chest X-Ray 06/03/17 0946 Signed Impressions: Service Date/Time: Saturday, June 03, 2017 09:50 - CONCLUSION: Mild left basilar airspace disease. Otherwise stable chest. Carlo Griggs MD Assessment and Plan Assessment and Plan Biliary sepsis, cholangitis Biliary obstruction sp ERCP with large stone extraction E.coli sepsis 2/2 cholnagitis cont zosyn fu clx will adjust abx per clx results anticipate transition to po abx at the time of d/c unless MDRO Kandi Agee MD Jun 04, 2017 15:40
[2017-06-04] MEDS ORDERED: PROPOFOL 200 MG/20 ML AMP IV ONE (15:42)
[2017-06-04 16:00] VITALS: BP 140/65; PULSE 97; RESP 19; TEMP 96.9; O2SAT 97
--- NOTE | 2017-06-04 19:34 | HHI.GIFU ---
Subjective Remarks feels ok, still some abdominal pian Objective Vitals I&O Vital Signs Date Time Temp Pulse Resp B/P Pulse Ox O2 Delivery O2 Flow Rate FiO2 06/04/17 16:00 96.9 97 19 140/65 97 06/04/17 15:17 95 16 161/89 100 Nasal Cannula 2 06/04/17 15:00 97 16 158/81 100 Nasal Cannula 2 06/04/17 14:45 98 16 160/79 100 Nasal Cannula 2 06/04/17 14:41 98.8 101 16 169/81 99 Nasal Cannula 2 06/04/17 12:00 98.1 93 19 117/62 97 06/04/17 08:00 98.1 92 20 108/60 98 06/04/17 00:00 96.5 85 17 97/66 97 06/03/17 20:00 98.5 95 17 111/67 97 I/O 06/03/17 06/03/17 06/03/17 06/04/17 06/04/17 06/04/17 07:00 15:00 23:00 07:00 15:00 23:00 Intake Total 876 ml 1208 ml 976 ml Output Total 300 ml 450 ml 500 ml Balance 576 ml 758 ml 476 ml Intake Oral 240 ml 240 ml 0 ml IV Total 636 ml 968 ml 676 ml Other 300 ml Output Urine Total 300 ml 450 ml 500 ml Estimated Blood Loss 0 ml Other 0 ml # Voids 2 # Bowel Movements 0 Laboratory Laboratory Tests Test 06/04/17 06:19 White Blood Count 23.9 Red Blood Count 4.16 Hemoglobin 11.5 Hematocrit 34.7 Mean Corpuscular Volume 83.4 Mean Corpuscular Hemoglobin 27.8 Mean Corpuscular Hemoglobin 33.3 Concent Red Cell Distribution Width 15.0 Platelet Count 102 Mean Platelet Volume 7.7 Neutrophils (%) (Auto) 89.3 Lymphocytes (%) (Auto) 5.6 Monocytes (%) (Auto) 3.4 Eosinophils (%) (Auto) 1.4 Basophils (%) (Auto) 0.3 Neutrophils # (Auto) 21.4 Lymphocytes # (Auto) 1.3 Monocytes # (Auto) 0.8 Eosinophils # (Auto) 0.3 Basophils # (Auto) 0.1 CBC Comment AUTO DIFF Differential Total Cells 100 Counted Neutrophils % (Manual) 76 Band Neutrophils % 17 Lymphocytes % 6 Monocytes % 1 Neutrophils # (Manual) 22.2 Differential Comment FINAL DIFF MANUAL Toxic Vacuolation PRESENT Dohle Bodies PRESENT Platelet Estimate LOW Platelet Morphology Comment NORMAL Sodium Level 140 Potassium Level 4.0 Chloride Level 113 Carbon Dioxide Level 18.1 Anion Gap 9 Blood Urea Nitrogen 25 Creatinine 2.37 Estimat Glomerular Filtration 27 Rate Random Glucose 90 Lactic Acid Level 2.1 Calcium Level 7.7 Magnesium Level 1.6 Total Bilirubin 2.7 Aspartate Amino Transf 331 (AST/SGOT) Alanine Aminotransferase 252 (ALT/SGPT) Alkaline Phosphatase 115 Total Protein 5.7 Albumin 1.9 Date/Time Procedure Status Source Growth 06/03/17 09:57 Influenza Types A,B Antigen (FARHAD) - Final Complete Nasal Aspirate NEGATIVE FOR FLU A AND B ANTIGEN.... 06/03/17 09:57 Aerobic Blood Culture - Preliminary Resulted Blood Peripheral NO GROWTH IN 1 DAY 06/03/17 09:57 Anaerobic Blood Culture - Preliminary Resulted Gram Negative Marc Physical Exam HEENT: Pupils round and reactive to light; normocephalic; atraumatic; no jaundice. Throat is clear. NECK: Neck is supple, no JVD, no lymphadenopathy. CHEST: Chest is clear to auscultation and percussion. CARDIAC: Regular rate and rhythm with no murmur gallop or rubs. ABDOMEN: Soft, nondistended, mild tender abdomen; no hepatosplenomegaly; bowel sounds are present in all four quadrants. EXTREMITIES: No clubbing, cyanosis, or edema. SKIN: Normal; no rash; no jaundice. HELPER MARBLE FINISHER: No focal deficits; alert and oriented times three. Assessment and Plan Plan large CBD stone, had ERCP today with removal of the stone NPO until am, advance diet as tolerated re check LFTs in Heather Flower MD Jun 04, 2017 19:34
[2017-06-05] VITALS: BP 126/60; PULSE 78; RESP 17; TEMP 96.2; O2SAT 98
[2017-06-05] MEDS: SODIUM CHLOR 0.9% 1000 ML INJ 1,000 ML IV SCH ×2 (05:03→16:28)
[2017-06-05] MEDS: PIPERACIL-TAZO 2.25 GM PREMIX 50 ML IV SCH ×3 (05:04→17:28)
[2017-06-05] MEDS: HYDROmorphone HCL PF 1 MG/ML VIAL IV PUSH PRN ×3 (05:05→21:06)
[2017-06-05 06:25] LABS: AUTOMATED NEUTROPHIL # 17.9 TH/MM3 (1.8-7.7); BASOPHIL % 0.2 % (0.0-2.0); EOSINOPHIL # 0.3 TH/MM3 (0-0.4); EOSINOPHIL % 1.5 % (0.0-4.0); HEMATOCRIT 33.9 % (39.0-51.0); HEMO FLAGS DIFF FINAL; LYMPH % 6.6 % (9.0-44.0); LYMPHOCYTE # 1.3 TH/MM3 (1.0-4.8); MEAN CELL VOLUME 83.8 FL (80.0-100.0); MEAN CORPUSCULAR HEMOGLOBIN 27.3 PG (27.0-34.0); MEAN CORPUSCULAR HGB CONC 32.6 % (32.0-36.0); MONO % 3.3 % (0.0-8.0); NEUT % 88.4 % (16.0-70.0); PLATELET COUNT 117 TH/MM3 (150-450); RED BLOOD COUNT 4.05 MIL/MM3 (4.50-5.90); RED CELL DISTRIBUTION WIDTH 15.1 % (11.6-17.2); WHITE BLOOD COUNT 20.3 TH/MM3 (4.0-11.0)
[2017-06-05 07:00] LABS: ANION GAP 10 MEQ/L (5-15); AST (GOT) 137 U/L (15-37); BICARBONATE 19.1 MEQ/L (21.0-32.0); BLOOD UREA NITROGEN 25 MG/DL (7-18); CHLORIDE 115 MEQ/L (98-107); GLOMERULAR FILTRATION RATE 34 ML/MIN (>89); POTASSIUM 4.3 MEQ/L (3.5-5.1); SODIUM (NA) 144 MEQ/L (136-145)
[2017-06-05 07:01] LABS: ALT (GPT) 170 U/L (12-78)
[2017-06-05 07:03] LABS: ALKALINE PHOSPHATASE 119 U/L (45-117); TOTAL BILIRUBIN ADULT 1.5 MG/DL (0.2-1.0)
--- NOTE | 2017-06-05 07:17 | MR ---
cc: MARKUS SAMS M.D. DATE OF 1940 DATE OF PROCEDURE PROCEDURE ERCP with sphincterotomy and stone removal. INDICATION A 77-year-old gentleman who has elevated liver function tests and common bile duct stone. PROCEDURE After informing the patient about the procedure and complication, consent was signed. The patient was placed on his abdomen in prone position. After intubation and sedation, the scope was placed in the mouth, advanced under video guidance to the second portion of the duodenum. The ampulla was identified and cannulation was achieved without difficulty. The patient has cholangiogram which showed large filling defect consistent with large stone and dilated common bile duct. Sphincterotomy was performed. Sweeping the duct with the balloon was unsuccessful to reveal the stone but then I was able to remove about 1 cm large stone with a basket with good drainage of the duct and occluded cholangiogram negative for any filling defect. The patient tolerated the procedure well without any immediate complication. FINDINGS 1. Normal EGD. 2. Large common bile duct stone, removed as above. 3. Periampullary diverticulum. RECOMMENDATIONS 1. N.p.o. until the morning. 2. Liver function tests tomorrow. MD TOPHER Berman/VIRY /7:37 PM /7:17 AM
[2017-06-05 08:00] VITALS: BP 133/98; PULSE 82; RESP 17; TEMP 98.1; O2SAT 98
[2017-06-05] MEDS: ALPRAZolam 0.5 MG TAB PO PRN (09:07)
--- NOTE | 2017-06-05 11:53 | HHI.GIFU ---
Subjective Remarks Resting in bed. No n/v. Pain much improved. Would like to try clear liquids- but states he needs to be on low salt diet and therefore does not want broths. ( Emmie Monk) Objective Vitals I&O Vital Signs Date Time Temp Pulse Resp B/P Pulse Ox O2 Delivery O2 Flow Rate FiO2 06/05/17 08:00 98.1 82 17 133/98 98 06/05/17 00:00 96.2 78 17 126/60 98 06/04/17 16:00 96.9 97 19 140/65 97 06/04/17 15:17 95 16 161/89 100 Nasal Cannula 2 06/04/17 15:00 97 16 158/81 100 Nasal Cannula 2 06/04/17 14:45 98 16 160/79 100 Nasal Cannula 2 06/04/17 14:41 98.8 101 16 169/81 99 Nasal Cannula 2 06/04/17 12:00 98.1 93 19 117/62 97 I/O 06/04/17 06/04/17 06/04/17 06/05/17 06/05/17 06/05/17 07:00 15:00 23:00 07:00 15:00 23:00 Intake Total 1208 ml 976 ml 756 ml 1087 ml Output Total 450 ml 500 ml 750 ml 600 ml Balance 758 ml 476 ml 6 ml 487 ml Intake Oral 240 ml 0 ml 240 ml 240 ml IV Total 968 ml 676 ml 516 ml 847 ml Other 300 ml Output Urine Total 450 ml 500 ml 750 ml 600 ml Estimated Blood Loss 0 ml Other 0 ml # Bowel Movements 0 Laboratory Laboratory Tests Test 06/05/17 05:59 White Blood Count 20.3 Red Blood Count 4.05 Hemoglobin 11.1 Hematocrit 33.9 Mean Corpuscular Volume 83.8 Mean Corpuscular Hemoglobin 27.3 Mean Corpuscular Hemoglobin 32.6 Concent Red Cell Distribution Width 15.1 Platelet Count 117 Mean Platelet Volume 8.0 Neutrophils (%) (Auto) 88.4 Lymphocytes (%) (Auto) 6.6 Monocytes (%) (Auto) 3.3 Eosinophils (%) (Auto) 1.5 Basophils (%) (Auto) 0.2 Neutrophils # (Auto) 17.9 Lymphocytes # (Auto) 1.3 Monocytes # (Auto) 0.7 Eosinophils # (Auto) 0.3 Basophils # (Auto) 0.0 CBC Comment DIFF FINAL Differential Comment Sodium Level 144 Potassium Level 4.3 Chloride Level 115 Carbon Dioxide Level 19.1 Anion Gap 10 Blood Urea Nitrogen 25 Creatinine 1.94 Estimat Glomerular Filtration 34 Rate Random Glucose 80 Calcium Level 8.2 Total Bilirubin 1.5 Aspartate Amino Transf 137 (AST/SGOT) Alanine Aminotransferase 170 (ALT/SGPT) Alkaline Phosphatase 119 Total Protein 5.9 Albumin 1.9 Date/Time Procedure Status Source Growth 06/03/17 09:57 Influenza Types A,B Antigen (FARHAD) - Final Complete Nasal Aspirate NEGATIVE FOR FLU A AND B ANTIGEN.... 06/03/17 09:57 Aerobic Blood Culture - Preliminary Resulted Blood Peripheral NO GROWTH IN 2 DAYS 06/03/17 09:57 Anaerobic Blood Culture - Final Resulted Escherichia Coli Imaging Last Impressions GI Procedure 06/04/17 0000 Signed Impressions: Service Date/Time: Sunday, June 04, 2017 14:02 - CONCLUSION: ERCP as above. Trinidad Bermudez MD Abdomen/Pelvis CT 06/03/17 1049 Signed Impressions: Service Date/Time: Saturday, June 03, 2017 11:22 - CONCLUSION: Enlarging common bile duct with suspected distal common bile duct stone. Status post cholecystectomy. Otherwise stable chest. Carlo Griggs MD Chest X-Ray 06/03/17 0946 Signed Impressions: Service Date/Time: Saturday, June 03, 2017 09:50 - CONCLUSION: Mild left basilar airspace disease. Otherwise stable chest. Carlo Griggs MD Physical Exam HEENT: Normocephalic; atraumatic; no jaundice. CHEST: CTA CARDIAC: RRR. ABDOMEN: Soft, nondistended, mild epigastric tenderness; no hepatosplenomegaly ; bowel sounds are present in all four quadrants. EXTREMITIES: No clubbing, cyanosis, or edema. SKIN: Normal; no rash; no jaundice. BURR GRINDER: No focal deficits; alert and oriented times three. (Emmie Monk) Assessment and Plan Plan ASSESSMENT: - Choledocholithiasis with biliary obstruction and cholangitis. Abdomen/Pelvis CT (06/03/17)-----> Enlarging common bile duct with suspected distal common bile duct stone. Status post cholecystectomy. Otherwise stable chest. S/P ERCP with sphincterotomy and stone removal (06/04/17)-----> normal egd, large common bile duct stone, removed as above, periampullary diverticulum. LFTs improved, T. Bili 1.5, AST 137, ALT 170, Alk Phosph 119. Clinically, pain has improved. No n/v. Requesting diet, but does not want broth because he follows low sodium diet. Zosyn. - Biliary sepsis secondary to above. BCx with E. Coli. WBC 20.3. Zosyn per ID - Anemia. 11.1/33.9. No acute blood loss. PPI. - MARLA, Creat 1.94. - Hypertension, diabetes mellitus, Hx prostate cancer. Per attending. - Hx PUD. PPI PLAN: - Full liquids, low sodium - Cont. PPI - Cont. Zosyn per ID recommendations - CBC, LFT in am - Supportive care - Further recommendations to follow based on results of above - Pt seen and examined by Dr. Arshad and myself and this note is written on her behalf (Emmie Monk) Emmie Monk Jun 05, 2017 11:53 Sharon Arshad MD Jun 06, 2017 08:04
[2017-06-05 12:00] VITALS: BP 137/70; PULSE 95; RESP 18; TEMP 98.4; O2SAT 97
[2017-06-05] MEDS: PANTOPRAZOLE SODIUM 40 MG VIAL IV PUSH SCH (12:52)
--- NOTE | 2017-06-05 13:52 | HHI.PR ---
Subjective Remarks Written by Alia Gleason PA-C acting as scribe for Dr. Haddad on 06/05/17 at 13:31. Follow up on patient with choledocholithiasis with biliary obstruction and cholangitis. Patient seen and examined today. Patient is much improved. Reports 5/10 intermittent "pulling" type abdominal pain with movement only. Tolerating full liquid diet. He denies any fever, chills, N/V, SOB or chest pain. Patient does report several episodes of stool incontinence. He reports some generalized weakness. Objective Vitals Vital Signs Date Time Temp Pulse Resp B/P Pulse Ox O2 Delivery O2 Flow Rate FiO2 06/05/17 12:00 98.4 95 18 137/70 97 06/05/17 08:00 98.1 82 17 133/98 98 06/05/17 00:00 96.2 78 17 126/60 98 06/04/17 16:00 96.9 97 19 140/65 97 06/04/17 15:17 95 16 161/89 100 Nasal Cannula 2 06/04/17 15:00 97 16 158/81 100 Nasal Cannula 2 06/04/17 14:45 98 16 160/79 100 Nasal Cannula 2 06/04/17 14:41 98.8 101 16 169/81 99 Nasal Cannula 2 I/O 06/04/17 06/04/17 06/04/17 06/05/17 06/05/17 06/05/17 07:00 15:00 23:00 07:00 15:00 23:00 Intake Total 1208 ml 976 ml 756 ml 1087 ml Output Total 450 ml 500 ml 750 ml 600 ml Balance 758 ml 476 ml 6 ml 487 ml Intake Oral 240 ml 0 ml 240 ml 240 ml IV Total 968 ml 676 ml 516 ml 847 ml Other 300 ml Output Urine Total 450 ml 500 ml 750 ml 600 ml Estimated Blood Loss 0 ml Other 0 ml # Bowel Movements 0 Result Diagram: 06/05/17 0559 06/05/17 0559 Imaging Last Impressions GI Procedure 06/04/17 0000 Signed Impressions: Service Date/Time: Sunday, June 04, 2017 14:02 - CONCLUSION: ERCP as above. Trinidad Bermudez MD Abdomen/Pelvis CT 06/03/17 1049 Signed Impressions: Service Date/Time: Saturday, June 03, 2017 11:22 - CONCLUSION: Enlarging common bile duct with suspected distal common bile duct stone. Status post cholecystectomy. Otherwise stable chest. Carlo Griggs MD Chest X-Ray 06/03/17 0946 Signed Impressions: Service Date/Time: Saturday, June 03, 2017 09:50 - CONCLUSION: Mild left basilar airspace disease. Otherwise stable chest. Carlo Griggs MD Objective Remarks GENERAL: Well-nourished, well-developed patient in NAD. Sitting up in bedside chair. Awake and alert. Eating. SKIN: Warm and dry. No rash. HEENT: Normocephalic. Atraumatic. EOMI. NECK: Supple. Trachea midline. CARDIOVASCULAR: Regular rate and rhythm. No murmur appreciated. RESPIRATORY: No accessory muscle use. Clear to auscultation. Breath sounds equal bilaterally. GASTROINTESTINAL: Abdomen soft, non-tender, nondistended. Normoactive bowel sounds x4. MUSCULOSKELETAL: No obvious deformities. Extremities without edema. NEUROLOGICAL: Awake and alert. Able to move all extremities. No focal neurologic deficit appreciated. Normal speech. PSYCHIATRIC: Appropriate mood and affect; insight and judgment normal. Medications and IVs Current Medications Medications (Trade) Dose Ordered Sig/Daniel Route Start Time Stop Time Status Last Admin (Zofran Inj) 4 mg Q8HR PRN IV PUSH 06/03/17 14:00 Hydromorphone HCl 0.5 mg 0.5 mg Q4H PRN IV PUSH 06/03/17 14:00 06/05/17 05:05 Sodium Chloride 1,000 ml @ 100 mls/hr Q10H IV 06/03/17 14:00 06/05/17 05:03 (Zosyn 2.25 Gm Premix) 50 ml @ 100 mls/hr Q6H IV 06/03/17 18:00 06/05/17 12:46 (Protonix Inj) 40 mg Q24H IV PUSH 06/03/17 14:00 06/05/17 12:52 (Xanax) 0.5 mg Q6H PRN PO 06/03/17 14:00 06/05/17 09:07 Zolpidem Tartrate 5 mg 5 mg HS PRN PO 06/04/17 00:30 06/04/17 22:42 (Lr 1000 ml Inj) 1,000 ml @ 30 mls/hr Q24H PRN IV 06/04/17 05:30 06/07/17 05:29 Miscellaneous Information ALL NURSING DEPARTME... UNSCH PRN .XX 06/04/17 15:15 06/05/17 15:14 (Lactinex Pkt) 1 gm TID PO 06/05/17 18:00 A/P Problem List: (1) Elevated LFTs ICD Code: R79.89 Status: Acute Assessment and Plan 77 y/o male who was just discharged from the hospital and underwent ERCP presented with recurrent abdominal pain; - Sepsis secondary to cholangitis. - Blood cultures positive for E Coli. - On IV Zoysn - ID following - White count trending down - lactic acid near normal - Continue to monitor Weakness Diarrhea- new onset. - Likely antibiotic reaction/Zosyn use - r/o C. difficile, Begin Lactinex by mouth TID - check mag level - PT consulted as he complains of weakness and for assistance w d/c planning - Monitor - Choledocholithiasis with biliary obstruction and cholangitis - GI following s/p repeat ERCP with sphincterotomy with removal of CBD stone 06/04/17, EGD normal per GI note - pain much improved - tolerating full liquid diet. Continue to advance diet per GI recommendations. consider switching to po protonix in AM - Transaminitis - Secondary to above - LFTs trending down - will continue to follow trend - MARLA on chronic renal insufficiency - Creatinine trending down - Avoid nephrotoxic agents - Obtain a.m. BMP to monitor trend - hx of PUD - continue IV Protonix - Dyslipidemia - hold statin due to elevated LFT's - may resume in few weeks as outpatient -DVT prophylaxis - SCD's This note was transcribed by hang Gleason. I, Dr. Sharmaine Haddad personally performed the history, physical exam, and medical decision making; and confirmed the accuracy of the information in the transcribed note. case discussed w Dr. Agee, repeat Blood cx only if he spikes a fever or if he shows signs of sepsis. Authenticated by Dr. Sharmaine Haddad on 06/05/17 at 13:31. Discharge Planning awaiting final recs from GI and ID Pt w new onset diarrhea. started on lactinex. CDiff ordered. Alia Gleason Jun 05, 2017 13:51 Sharmaine Haddad MD Jun 05, 2017 14:07
[2017-06-05 16:00] VITALS: BP 128/68; PULSE 85; RESP 19; TEMP 97.1; O2SAT 96
[2017-06-05] MEDS: LACTOBACILLUS ACIDOPHILUS 1 GM PACKET PO SCH (17:29)
[2017-06-05 18:07] VITALS: O2SAT 96
[2017-06-05 20:00] VITALS: BP 124/72; PULSE 80; RESP 20; TEMP 99.6; O2SAT 99
[2017-06-06] VITALS (7 sets, daily range): BP systolic 130–152; BP diastolic 76–79; PULSE 76–85; RESP 16–20; TEMP 97.5–100.6; O2SAT 96–99
[2017-06-06] MEDS: ZOLPIDEM TARTRATE 5 MG TAB PO PRN (01:03)
[2017-06-06] MEDS: PIPERACIL-TAZO 2.25 GM PREMIX 50 ML IV SCH ×5 (01:18→23:57)
[2017-06-06] MEDS: SODIUM CHLOR 0.9% 1000 ML INJ 1,000 ML IV SCH ×3 (01:18→23:57)
[2017-06-06 02:57] LABS: C. DIFF EPI 027 PRESUMPTIVE NEGATIVE (NEGATIVE); C. DIFF TOXIN PCR NEGATIVE (NEGATIVE)
[2017-06-06 07:23] LABS: TOTAL BILIRUBIN ADULT 1.3 MG/DL (0.2-1.0)
[2017-06-06 07:24] LABS: AUTOMATED NEUTROPHIL # 11.1 TH/MM3 (1.8-7.7); BASOPHIL # 0.1 TH/MM3 (0-0.2); BASOPHIL % 0.4 % (0.0-2.0); EOSINOPHIL # 0.2 TH/MM3 (0-0.4); EOSINOPHIL % 1.1 % (0.0-4.0); HEMATOCRIT 33.9 % (39.0-51.0); LYMPH % 12.7 % (9.0-44.0); LYMPHOCYTE # 1.8 TH/MM3 (1.0-4.8); MEAN CELL VOLUME 83.1 FL (80.0-100.0); MEAN CORPUSCULAR HEMOGLOBIN 27.8 PG (27.0-34.0); MEAN CORPUSCULAR HGB CONC 33.5 % (32.0-36.0); MONO % 6.3 % (0.0-8.0); NEUT % 79.5 % (16.0-70.0); PLATELET COUNT 91 TH/MM3 (150-450); RED BLOOD COUNT 4.08 MIL/MM3 (4.50-5.90)
[2017-06-06 07:25] LABS: HEMO FLAGS AUTO DIFF
[2017-06-06 07:29] LABS: INDIRECT BILIRUBIN 0.9 MG/DL (0.0-0.8); MAGNESIUM 1.9 MG/DL (1.5-2.5)
[2017-06-06] MEDS: LACTOBACILLUS ACIDOPHILUS 1 GM PACKET PO SCH ×3 (08:32→16:59)
[2017-06-06 08:53] LABS: OVALOCYTES 1+ (NORMAL); PLATELET ESTIMATE SMEAR LOW (NORMAL); PLATELET MORPHOLOGY NORMAL (NORMAL); SCAN/DIFF AUTO DIFF CONFIRMED
--- NOTE | 2017-06-06 10:11 | RADRPT ---
EXAM DATE/TIME: 06/06/2017 09:48 [facility] COMPARISON: No previous studies available for comparison. INDICATIONS : Right upper quadrant abdominal pain. MEDICAL HISTORY : Renal calculi. SURGICAL HISTORY : Cholecystectomy. ENCOUNTER: Initial ACUITY: 3 weeks PAIN SCORE: 9/10 LOCATION: Right Abdomen FINDINGS: Supine and upright views of the abdomen were performed. The abdominal bowel gas pattern is normal. No air fluid levels are seen. No abnormal masses, calcifications, or organomegaly is seen. The visu alized lower lungs demonstrate minimal left basilar density. Right lung bases clear. No evidence of free intraperitoneal gas. The osseous structures are unremarkable. Bilateral hip prostheses. Prostat ic seeds are noted. CONCLUSION: No acute abnormalities. Minimal left basilar density. Javy Parra MD on June 06, 2017 at 10:08 Board Certified Radiologist. This report was verified electronically.
[2017-06-06] MEDS: HYDROmorphone HCL PF 1 MG/ML VIAL IV PUSH PRN (11:36)
[2017-06-06] MEDS ORDERED: RESP: ALBUTEROL 2.5 MG/IPRATROPIUM 0.5 MG NEB (PRN) NEB (12:30)
[2017-06-06] MEDS: PANTOPRAZOLE SODIUM 40 MG VIAL IV PUSH SCH (12:42)
--- NOTE | 2017-06-06 15:50 | HHI.GIFU ---
Subjective Remarks Resting in bed. States he is not feeling well today. He had a low grade fever last night. He states he feels warm today, but has not had fever. Denies chills. No n/v. RUQ tenderness. States is feeling extremely weak today. ( Emmie Monk) Objective Vitals I&O Vital Signs Date Time Temp Pulse Resp B/P Pulse Ox O2 Delivery O2 Flow Rate FiO2 06/06/17 13:10 98 06/06/17 12:00 97.5 85 17 152/78 96 06/06/17 08:00 98.7 76 16 139/78 98 06/06/17 00:00 98.7 81 20 130/76 99 06/05/17 20:00 99.6 80 20 124/72 99 06/05/17 18:07 96 21 06/05/17 16:00 97.1 85 19 128/68 96 I/O 06/05/17 06/05/17 06/05/17 06/06/17 06/06/17 06/06/17 06:59 14:59 22:59 06:59 14:59 22:59 Intake Total 1087 ml 440 ml 1274 ml 814 ml 1044 ml Output Total 600 ml 900 ml 600 ml 350 ml Balance 487 ml -460 ml 674 ml 814 ml 694 ml Intake Oral 240 ml 440 ml 500 ml IV Total 847 ml 1274 ml 814 ml 544 ml Output Urine Total 600 ml 900 ml 600 ml 350 ml # Voids 2 1 # Bowel Movements 1 0 1 Laboratory Laboratory Tests Test 06/06/17 06/06/17 01:15 04:10 Stool C. difficile Toxin (PCR) NEGATIVE Stl C. difficile Toxin PRESUMPTIVE Epiderm 027 NEGATIVE White Blood Count 14.0 Red Blood Count 4.08 Hemoglobin 11.3 Hematocrit 33.9 Mean Corpuscular Volume 83.1 Mean Corpuscular Hemoglobin 27.8 Mean Corpuscular Hemoglobin 33.5 Concent Red Cell Distribution Width 15.0 Platelet Count 91 Mean Platelet Volume 8.7 Neutrophils (%) (Auto) 79.5 Lymphocytes (%) (Auto) 12.7 Monocytes (%) (Auto) 6.3 Eosinophils (%) (Auto) 1.1 Basophils (%) (Auto) 0.4 Neutrophils # (Auto) 11.1 Lymphocytes # (Auto) 1.8 Monocytes # (Auto) 0.9 Eosinophils # (Auto) 0.2 Basophils # (Auto) 0.1 CBC Comment AUTO DIFF Differential Comment AUTO DIFF CONFIRMED Platelet Estimate LOW Platelet Morphology Comment NORMAL Ovalocytes 1+ Hematology Comments Magnesium Level 1.9 Total Bilirubin 1.3 Direct Bilirubin 0.4 Indirect Bilirubin 0.9 Aspartate Amino Transf 73 (AST/SGOT) Alanine Aminotransferase 111 (ALT/SGPT) Alkaline Phosphatase 120 Total Protein 5.8 Albumin 1.8 Date/Time Procedure Status Source Growth 06/03/17 09:57 Influenza Types A,B Antigen (FARHAD) - Final Complete Nasal Aspirate NEGATIVE FOR FLU A AND B ANTIGEN.... 06/03/17 09:57 Aerobic Blood Culture - Preliminary Resulted Blood Peripheral NO GROWTH IN 3 DAYS 06/03/17 09:57 Anaerobic Blood Culture - Final Resulted Escherichia Coli Imaging Last Impressions Abdomen X-Ray 06/06/17 0000 Signed Impressions: Service Date/Time: Tuesday, June 06, 2017 09:48 - CONCLUSION: No acute abnormalities. Minimal left basilar density. Javy Parra MD GI Procedure 06/04/17 0000 Signed Impressions: Service Date/Time: Sunday, June 04, 2017 14:02 - CONCLUSION: ERCP as above. Trinidad Bermudez MD Abdomen/Pelvis CT 06/03/17 1049 Signed Impressions: Service Date/Time: Saturday, June 03, 2017 11:22 - CONCLUSION: Enlarging common bile duct with suspected distal common bile duct stone. Status post cholecystectomy. Otherwise stable chest. Carlo Griggs MD Chest X-Ray 06/03/17 0946 Signed Impressions: Service Date/Time: Saturday, June 03, 2017 09:50 - CONCLUSION: Mild left basilar airspace disease. Otherwise stable chest. Carlo Griggs MD Physical Exam HEENT: Normocephalic; atraumatic; no jaundice. CHEST: CTA CARDIAC: RRR. ABDOMEN: Soft, nondistended, epigastric tenderness/ruq tenderness; no hepatosplenomegaly; bowel sounds are present in all four quadrants. EXTREMITIES: No clubbing, cyanosis, or edema. SKIN: Normal; no rash; no jaundice. BARREL POLISHER INSIDE: No focal deficits; lethargic and oriented times three. (Emmie Monk) Assessment and Plan Plan ASSESSMENT: - Choledocholithiasis with biliary obstruction and cholangitis. Abdomen/Pelvis CT (06/03/17)-----> Enlarging common bile duct with suspected distal common bile duct stone. Status post cholecystectomy. Otherwise stable chest. S/P ERCP with sphincterotomy and stone removal (06/04/17)-----> normal egd, large common bile duct stone, removed as above, periampullary diverticulum. WBC is improving. LFTs trending down- T. Bili 1.3, AST 73, ALT 111, Alk Phosph 120. Clinically, he is not feeling well today- generalized malaise, ruq tenderness. Had a low grade fever last night. Heart healthy diet. Zosyn. - Biliary sepsis secondary to above. BCx with E. Coli. WBC 14.0. Zosyn per ID - Anemia. 11.3/33.9. No acute blood loss. PPI. - MARLA, Creat 1.94. - Hypertension, diabetes mellitus, Hx prostate cancer. Per attending. - Hx PUD. PPI PLAN: - Heart healthy diet - Cont. PPI - Cont. Zosyn per ID recommendations - CBC, CMP in am - Supportive care - Further recommendations to follow based on results of above - Pt seen and examined by Dr. Arshad and myself and this note is written on her behalf (Emmie Monk) Physician Comments seen, examined agree with above complaining of pain in ruq when taking a deep breath, states pain not new , had it before procedure too abdominal x ray ordered 5:41 -called by hospitalist -patient had fever, chills, weak labs better actually vitals normal cbc, cmp, lipase stat ct abdomen/pelvis bc/s, u c/s vancomycin 1 dose telemetry if worse IMC if lfts worsening or fever continues consider repeat ercp with stent placement r/o microperforation npo except medications (Sharon Arshad MD) Emmie Monk Jun 06, 2017 15:50 Sharon Arshad MD Jun 06, 2017 16:34
--- NOTE | 2017-06-06 16:25 | HHI.IDPN ---
Subjective Subjective Remarks pt is not feeling well co poor appetite no fever + RUQ tenderness Antibiotics Pip Tazo Allergies: Coded Allergies: Latex (Verified Allergy, Mild, Itching, 06/03/17) MRI PRECAUTION (Verified Adverse Reaction, Severe, STAPES IMPLANT, 06/03/17 ) PT STATES BILATERAL STAPES IMPLANTS/JLA 05/28/17 Objective . Vital Signs Date Time Temp Pulse Resp B/P Pulse Ox O2 Delivery O2 Flow Rate FiO2 06/06/17 13:10 98 06/06/17 12:00 97.5 85 17 152/78 96 06/06/17 08:00 98.7 76 16 139/78 98 06/06/17 00:00 98.7 81 20 130/76 99 06/05/17 20:00 99.6 80 20 124/72 99 06/05/17 18:07 96 21 06/05/17 06/05/17 06/06/17 15:00 23:00 07:00 Intake Total 440 ml 1274 ml 814 ml Output Total 900 ml 600 ml Balance -460 ml 674 ml 814 ml Intake Oral 440 ml IV Total 1274 ml 814 ml Output Urine Total 900 ml 600 ml # Voids 2 # Bowel Movements 1 0 . Laboratory Tests Test 06/05/17 06/06/17 05:59 04:10 White Blood Count 20.3 TH/MM3 14.0 TH/MM3 Red Blood Count 4.05 MIL/MM3 4.08 MIL/MM3 Hemoglobin 11.1 GM/DL 11.3 GM/DL Hematocrit 33.9 % 33.9 % Mean Corpuscular Volume 83.8 FL 83.1 FL Mean Corpuscular Hemoglobin 27.3 PG 27.8 PG Mean Corpuscular Hemoglobin 32.6 % 33.5 % Concent Red Cell Distribution Width 15.1 % 15.0 % Platelet Count 117 TH/MM3 91 TH/MM3 Mean Platelet Volume 8.0 FL 8.7 FL Neutrophils (%) (Auto) 88.4 % 79.5 % Lymphocytes (%) (Auto) 6.6 % 12.7 % Monocytes (%) (Auto) 3.3 % 6.3 % Eosinophils (%) (Auto) 1.5 % 1.1 % Basophils (%) (Auto) 0.2 % 0.4 % Neutrophils # (Auto) 17.9 TH/MM3 11.1 TH/MM3 Lymphocytes # (Auto) 1.3 TH/MM3 1.8 TH/MM3 Monocytes # (Auto) 0.7 TH/MM3 0.9 TH/MM3 Eosinophils # (Auto) 0.3 TH/MM3 0.2 TH/MM3 Basophils # (Auto) 0.0 TH/MM3 0.1 TH/MM3 CBC Comment DIFF FINAL AUTO DIFF Differential Comment AUTO DIFF CONFIRMED Platelet Estimate LOW Platelet Morphology Comment NORMAL Ovalocytes 1+ Hematology Comments Laboratory Tests Test 06/05/17 06/06/17 05:59 04:10 Sodium Level 144 MEQ/L Potassium Level 4.3 MEQ/L Chloride Level 115 MEQ/L Carbon Dioxide Level 19.1 MEQ/L Anion Gap 10 MEQ/L Blood Urea Nitrogen 25 MG/DL Creatinine 1.94 MG/DL Estimat Glomerular Filtration 34 ML/MIN Rate Random Glucose 80 MG/DL Calcium Level 8.2 MG/DL Total Bilirubin 1.5 MG/DL 1.3 MG/DL Aspartate Amino Transf 137 U/L 73 U/L (AST/SGOT) Alanine Aminotransferase 170 U/L 111 U/L (ALT/SGPT) Alkaline Phosphatase 119 U/L 120 U/L Total Protein 5.9 GM/DL 5.8 GM/DL Albumin 1.9 GM/DL 1.8 GM/DL Magnesium Level 1.9 MG/DL Direct Bilirubin 0.4 MG/DL Indirect Bilirubin 0.9 MG/DL Imaging Last Impressions Abdomen X-Ray 06/06/17 0000 Signed Impressions: Service Date/Time: Tuesday, June 06, 2017 09:48 - CONCLUSION: No acute abnormalities. Minimal left basilar density. Javy Parra MD GI Procedure 06/04/17 0000 Signed Impressions: Service Date/Time: Sunday, June 04, 2017 14:02 - CONCLUSION: ERCP as above. Trinidad Bermudez MD Abdomen/Pelvis CT 06/03/17 1049 Signed Impressions: Service Date/Time: Saturday, June 03, 2017 11:22 - CONCLUSION: Enlarging common bile duct with suspected distal common bile duct stone. Status post cholecystectomy. Otherwise stable chest. Carlo Griggs MD Chest X-Ray 06/03/17 0946 Signed Impressions: Service Date/Time: Saturday, June 03, 2017 09:50 - CONCLUSION: Mild left basilar airspace disease. Otherwise stable chest. Carlo Griggs MD Physical Exam CONSTITUTIONAL/GENERAL: This is an adequately nourished patient, in no apparent distress. TUBES/LINES/DRAINS: SKIN: No jaundice, rashes, or lesions. Skin temperature appropriate. Not diaphoretic. EYES: Pupils equal and round and reactive. No scleral icterus. No injection or drainage. Fundi not examined. ENT: Hearing grossly normal. Nose without bleeding or purulent drainage. Throat without visible erythema, exudates, masses, or lesions. CARDIOVASCULAR: Regular rate and rhythm without murmurs, gallops, or rubs. No JVD. Peripheral pulses symmetric. RESPIRATORY/CHEST: Symmetric, unlabored respirations. Clear to auscultation. Breath sounds equal bilaterally. No wheezes, rales, or rhonchi. GASTROINTESTINAL: Abdomen soft, moderately tender to palpation w/o guarding or rebound, nondistended. No hepato-splenomegaly, or palpable masses. No guarding. Bowel sounds present. MUSCULOSKELETAL: Extremities without clubbing, cyanosis, or edema. . No mottling or clubbing. NEUROLOGICAL: Awake and alert. Motor and sensory grossly within normal limits. Follows commands. Clear speech Moves all extremities. PSYCHIATRIC: No obvious anxiety/depression. no apparent hallucinations or other psychotic thought process. Assessment & Plan Remarks Biliary sepsis, cholangitis Biliary obstruction sp ERCP with large stone extraction E.coli sepsis 2/2 cholangitis cont zosyn fu clx will adjust abx per clx results anticipate transition to po abx (Augmentin or flagyl + levaquine) at the time of d/c unless MDRO dw Kandi Drummond MD Jun 06, 2017 16:24
--- NOTE | 2017-06-06 17:51 | HHI.PR ---
Subjective Remarks Pt tells me he is not feeling well. Complains of right upper quadrant pain w yawning. He admits to chills. denies any n/v at this time. Objective Vitals Vital Signs Date Time Temp Pulse Resp B/P Pulse Ox O2 Delivery O2 Flow Rate FiO2 06/06/17 16:00 100.6 79 20 145/79 97 06/06/17 13:10 98 06/06/17 12:00 97.5 85 17 152/78 96 06/06/17 08:00 98.7 76 16 139/78 98 06/06/17 00:00 98.7 81 20 130/76 99 06/05/17 20:00 99.6 80 20 124/72 99 06/05/17 18:07 96 21 I/O 06/05/17 06/05/17 06/05/17 06/06/17 06/06/17 06/06/17 07:00 15:00 23:00 07:00 15:00 23:00 Intake Total 1087 ml 440 ml 1274 ml 814 ml 1044 ml Output Total 600 ml 900 ml 600 ml 350 ml Balance 487 ml -460 ml 674 ml 814 ml 694 ml Intake Oral 240 ml 440 ml 500 ml IV Total 847 ml 1274 ml 814 ml 544 ml Output Urine Total 600 ml 900 ml 600 ml 350 ml # Voids 2 1 # Bowel Movements 1 0 1 Result Diagram: 06/06/17 0410 06/05/17 0559 Imaging Last Impressions Abdomen X-Ray 06/06/17 0000 Signed Impressions: Service Date/Time: Tuesday, June 06, 2017 09:48 - CONCLUSION: No acute abnormalities. Minimal left basilar density. Javy Parra MD GI Procedure 06/04/17 0000 Signed Impressions: Service Date/Time: Sunday, June 04, 2017 14:02 - CONCLUSION: ERCP as above. Trinidad Bermudez MD Abdomen/Pelvis CT 06/03/17 1049 Signed Impressions: Service Date/Time: Saturday, June 03, 2017 11:22 - CONCLUSION: Enlarging common bile duct with suspected distal common bile duct stone. Status post cholecystectomy. Otherwise stable chest. Carlo Griggs MD Chest X-Ray 06/03/17 0946 Signed Impressions: Service Date/Time: Saturday, June 03, 2017 09:50 - CONCLUSION: Mild left basilar airspace disease. Otherwise stable chest. Carlo Griggs MD Objective Remarks GENERAL: laying in bed, looks sick. SKIN: Warm and dry. No rash. HEENT: Normocephalic. Atraumatic. EOMI. NECK: Supple. Trachea midline. CARDIOVASCULAR: Regular rate and rhythm. No murmur appreciated. RESPIRATORY: No accessory muscle use. Clear to auscultation. Breath sounds equal bilaterally. GASTROINTESTINAL: Abdomen soft, tender to palpation in RUQ, nondistended. Normoactive bowel sounds x4. MUSCULOSKELETAL: No obvious deformities. Extremities without edema. NEUROLOGICAL: Awake and alert. Able to move all extremities. No focal neurologic deficit appreciated. Normal speech. PSYCHIATRIC: Appropriate mood and affect; insight and judgment normal. A/P Problem List: (1) Elevated LFTs ICD Code: R79.89 Status: Acute Assessment and Plan 77 y/o male who was just discharged from the hospital and underwent ERCP presented with recurrent abdominal pain; - Sepsis secondary to cholangitis. - Blood cultures positive for E Coli. - On IV Zoysn - ID following. Pt did have a fever 100.6 and I discussed the case w both Dr. Agee and Dr. Arshad. will check states CBC, CMP, lipase, U/A, lactic acid , CT abd/pelvis w IV contrast. repeat blood cx. - White count trending down but monitor closely. - Continue to monitor, placed on TELE.currently on NS@100ml/hr. IF BPs start going down, will give IVF bolus and transfer to ICU for close monitoring. Weakness Diarrhea- new onset. - Likely antibiotic reaction/Zosyn use - C. difficile neg,on Lactinex by mouth TID - mag level wnl - PT consulted as he complains of weakness and for assistance w d/c planning - Monitor - Choledocholithiasis with biliary obstruction and cholangitis - GI following s/p repeat ERCP with sphincterotomy with removal of CBD stone 06/04/17, EGD normal per GI note - pain worsening. See recs above. - advance diet per GI - Transaminitis - Secondary to above - LFTs trending down - will continue to follow trend - MARLA on chronic renal insufficiency - Creatinine trending down - Avoid nephrotoxic agents - Obtain a.m. BMP to monitor trend - hx of PUD - continue IV Protonix - Dyslipidemia - hold statin due to elevated LFT's - may resume in few weeks as outpatient -DVT prophylaxis - SCD's Discharge Planning monitor pt closely. if worsening consider transferring to ICU f/u stat labs and imaging studies spent >35 mins w reviewing chart, evaluating pt, speaking w consultants and overall coordination of care. Sharmaine Haddad MD Jun 06, 2017 17:51
[2017-06-06] MEDS ORDERED: oxyCODONE/ACETAMINOPHEN 10 MG/325 MG TAB PO PRN (18:00)
[2017-06-06] MEDS ORDERED: DIATRIZOATE MEGLUM/DIATRIZOATE SOD 9 ML CUP PO ONE (18:15)
[2017-06-06 18:23] LABS: BACTERIA, URINE RARE /hpf; BLOOD, URINE SMALL (NEG); COMMENT (UR) CULT NOT INDICATED; CULTURE IF INDICATED CULT NOT INDICATED; GLUCOSE,URINE NEG (NEG); KETONE, URINE NEG (NEG); MUCUS URINE FEW /lpf (OCC); NITRITE,URINE NEG (NEG); PH, URINE 5.5 (5.0-8.5); SQUAMOUS EPITHELIAL CELL URINE <1 /hpf (0-5); URINE COLOR YELLOW (YELLW/STRAW)
[2017-06-06 18:25] LABS: AUTOMATED NEUTROPHIL # 9.9 TH/MM3 (1.8-7.7); BASOPHIL % 0.2 % (0.0-2.0); EOSINOPHIL # 0.1 TH/MM3 (0-0.4); EOSINOPHIL % 0.6 % (0.0-4.0); HEMATOCRIT 34.8 % (39.0-51.0); HEMO FLAGS DIFF FINAL; LYMPH % 11.9 % (9.0-44.0); LYMPHOCYTE # 1.5 TH/MM3 (1.0-4.8); MEAN CORPUSCULAR HEMOGLOBIN 27.7 PG (27.0-34.0); MEAN CORPUSCULAR HGB CONC 33.3 % (32.0-36.0); MONO % 10.2 % (0.0-8.0); NEUT % 77.1 % (16.0-70.0); PLATELET COUNT 113 TH/MM3 (150-450); RED BLOOD COUNT 4.19 MIL/MM3 (4.50-5.90); RED CELL DISTRIBUTION WIDTH 15.1 % (11.6-17.2); WHITE BLOOD COUNT 12.8 TH/MM3 (4.0-11.0)
[2017-06-06 18:41] LABS: ALT (GPT) 93 U/L (12-78); ANION GAP 8 MEQ/L (5-15); AST (GOT) 54 U/L (15-37); BICARBONATE 21.2 MEQ/L (21.0-32.0); BLOOD UREA NITROGEN 12 MG/DL (7-18); CHLORIDE 109 MEQ/L (98-107); GLOMERULAR FILTRATION RATE 38 ML/MIN (>89); POTASSIUM 3.5 MEQ/L (3.5-5.1); SODIUM (NA) 138 MEQ/L (136-145)
[2017-06-06 18:47] LABS: ALKALINE PHOSPHATASE 108 U/L (45-117); TOTAL BILIRUBIN ADULT 1.3 MG/DL (0.2-1.0)
[2017-06-06] MEDS: ACETAMINOPHEN 325 MG TAB PO PRN (20:12)
[2017-06-06] MEDS ORDERED: IODIXANOL 320 MG/ML 50 ML VIAL (for Rad CT) IV ONE (22:02)
--- NOTE | 2017-06-06 22:06 | RADRPT ---
EXAM DATE/TIME: 06/06/2017 21:46 [facility] COMPARISON: GI LAB ERCP, June 04, 2017, 14:02. INDICATIONS : Patient complains of mid abdomen pain. IV CONTRAST: 50 cc Visipaque (iodixanol) IV ORAL CONTRAST: Partial prescribed oral contrast ingested. RADIATION DOSE: 10.09 CTDIvol (mGy) MEDICAL HISTORY : Cardiovascular disease. Diabetes mellitus type 1. Carcinoma, prostate. SURGICAL HISTORY : Cholecystectomy. ENCOUNTER: Subsequent ACUITY: 1 week PAIN SCALE: 5/10 LOCATION: mid abdomen TECHNIQUE: Volumetric scanning of the abdomen and pelvis was performed. Using automated exposure control and ad justment of the mA and/or kV according to patient size, radiation dose was kept as low as reasonably achievable to obtain optimal diagnostic quality images. DICOM format image data is available electro nically for review and comparison. FINDINGS: There are small bilateral pleural effusions and basilar consolidation. Coronary artery calcification is noted. Pneumobilia is identified with air present in the intrahepatic as well as extrahepatic bili celestino tree. There is mild wall thickening and inflammation surrounding the second portion of the duoden um with fluid in the gallbladder fossa. The patient is status post cholecystectomy. Pancreas, adrenal glands, spleen, left kidney unremarkable. There is mild scarring upper pole right kidney. Atheroscle rotic calcification of the aorta and iliac vessels. Bilateral hip arthroplasties are noted with strea k artifact across the pelvis. Brachii therapy seeds in the prostate. Bladder is partially obscured by streak artifact but within normal limits. There is no evidence for bowel obstruction. There is body wall edema. There are no fractures. CONCLUSION: 1. There is pneumobilia mild inflammation and fluid in the right upper quadrant in this patient who i s status post cholecystectomy. There is no evidence for abscess. 2. Bilateral pleural effusions and basilar consolidation. 3. Right renal scarring. 4. Atherosclerosis. Td Sullivan MD on June 06, 2017 at 22:02 Board Certified Radiologist. This report was verified electronically.
[2017-06-07] VITALS: BP 129/71; PULSE 70; RESP 18; TEMP 98.5; O2SAT 99
[2017-06-07] MEDS: ALPRAZolam 0.5 MG TAB PO PRN (00:44)
[2017-06-07] MEDS: oxyCODONE/ACETAMINOPHEN 5 MG/325 MG TAB PO PRN ×3 (00:44→16:42)
[2017-06-07 04:00] VITALS: BP 153/81; PULSE 81; RESP 18; TEMP 99.2; O2SAT 99
[2017-06-07] MEDS: PIPERACIL-TAZO 2.25 GM PREMIX 50 ML IV SCH ×4 (04:48→23:28)
[2017-06-07 05:20] LABS: AUTOMATED NEUTROPHIL # 10.1 TH/MM3 (1.8-7.7); BASOPHIL % 0.2 % (0.0-2.0); EOSINOPHIL # 0.2 TH/MM3 (0-0.4); EOSINOPHIL % 1.1 % (0.0-4.0); HEMATOCRIT 37.2 % (39.0-51.0); LYMPH % 13.5 % (9.0-44.0); LYMPHOCYTE # 1.9 TH/MM3 (1.0-4.8); MEAN CELL VOLUME 83.8 FL (80.0-100.0); MEAN CORPUSCULAR HEMOGLOBIN 27.7 PG (27.0-34.0); MEAN CORPUSCULAR HGB CONC 33.1 % (32.0-36.0); MONO % 13.2 % (0.0-8.0); PLATELET COUNT 107 TH/MM3 (150-450); RED BLOOD COUNT 4.43 MIL/MM3 (4.50-5.90); RED CELL DISTRIBUTION WIDTH 15.1 % (11.6-17.2)
[2017-06-07 05:25] LABS: HEMO FLAGS AUTO DIFF
[2017-06-07 05:31] LABS: ALT (GPT) 84 U/L (12-78); ANION GAP 9 MEQ/L (5-15); AST (GOT) 43 U/L (15-37); BICARBONATE 19.9 MEQ/L (21.0-32.0); BLOOD UREA NITROGEN 11 MG/DL (7-18); CHLORIDE 111 MEQ/L (98-107); GLOMERULAR FILTRATION RATE 44 ML/MIN (>89); POTASSIUM 3.4 MEQ/L (3.5-5.1); SODIUM (NA) 140 MEQ/L (136-145)
[2017-06-07 05:33] LABS: ALKALINE PHOSPHATASE 105 U/L (45-117); TOTAL BILIRUBIN ADULT 1.3 MG/DL (0.2-1.0)
[2017-06-07 08:00] VITALS: BP 142/70; PULSE 79; PULSE 85; RESP 19; TEMP 100.5; O2SAT 96
[2017-06-07] MEDS: SODIUM CHLOR 0.9% 1000 ML INJ 1,000 ML IV SCH ×2 (08:00→18:00)
[2017-06-07 08:44] LABS: BANDS 2 % (0-6); BASOPHILS 1 % (0-2); CORRECTED NUCLEATED RBC 1 /100 WBC (0-0); EOSINOPHILS 1 % (0-4); NEUTROPHIL # MANUAL DIFF 9.8 TH/MM3 (1.8-7.7); PLATELET ESTIMATE SMEAR LOW (NORMAL); PLATELET MORPHOLOGY NORMAL (NORMAL); POLYS (SEG NEUTROPHILS) 68 % (16-70); SCAN/DIFF FINAL DIFF MANUAL; WBC DIFF SAMPLE 100
[2017-06-07] MEDS: LACTOBACILLUS ACIDOPHILUS 1 GM PACKET PO SCH ×3 (09:00→18:00)
--- NOTE | 2017-06-07 09:28 | HHI.PR ---
Subjective Remarks Patient states his pain is about the same. It's located in the right upper quadrant. Denies any coughing. Had a temperature of 100.5 per RN this morning. No nausea or vomiting at this time. No chest pains. Objective Vitals Vital Signs Date Time Temp Pulse Resp B/P Pulse Ox O2 Delivery O2 Flow Rate FiO2 06/07/17 08:00 100.5 79 19 142/70 96 06/07/17 04:00 99.2 81 18 153/81 99 06/07/17 00:00 98.5 70 18 129/71 99 06/06/17 22:35 21 06/06/17 20:12 77 06/06/17 20:00 100.2 80 18 150/77 97 06/06/17 16:00 100.6 79 20 145/79 97 06/06/17 13:10 98 06/06/17 12:00 97.5 85 17 152/78 96 I/O 06/06/17 06/06/17 06/06/17 06/07/17 06/07/17 06/07/17 07:00 15:00 23:00 07:00 15:00 23:00 Intake Total 814 ml 1044 ml 1141 ml 0 ml Output Total 350 ml Balance 814 ml 694 ml 1141 ml 0 ml Intake Oral 500 ml 0 ml IV Total 814 ml 544 ml 1141 ml Output Urine Total 350 ml # Voids 1 1 # Bowel Movements 1 1 Result Diagram: 06/07/17 0447 06/07/17 0447 Imaging Last Impressions Abdomen/Pelvis CT 06/06/17 0000 Signed Impressions: Service Date/Time: Tuesday, June 06, 2017 21:46 - CONCLUSION: 1. There is pneumobilia mild inflammation and fluid in the right upper quadrant in this patient who is status post cholecystectomy. There is no evidence for abscess. 2. Bilateral pleural effusions and basilar consolidation. 3. Right renal scarring. 4. Atherosclerosis. Td Sullivan MD Abdomen X-Ray 06/06/17 0000 Signed Impressions: Service Date/Time: Tuesday, June 06, 2017 09:48 - CONCLUSION: No acute abnormalities. Minimal left basilar density. Javy Parra MD GI Procedure 06/04/17 0000 Signed Impressions: Service Date/Time: Sunday, June 04, 2017 14:02 - CONCLUSION: ERCP as above. Trinidad Bermudez MD Chest X-Ray 06/03/17 0946 Signed Impressions: Service Date/Time: Saturday, June 03, 2017 09:50 - CONCLUSION: Mild left basilar airspace disease. Otherwise stable chest. Carlo Griggs MD Objective Remarks GENERAL: laying in bed, looks sick and tired. SKIN: Warm and dry. No rash. Small blisters noted on the right upper lip HEENT: Normocephalic. Atraumatic. EOMI. NECK: Supple. Trachea midline. CARDIOVASCULAR: Regular rate and rhythm. No murmur appreciated. RESPIRATORY: No accessory muscle use. Faint crackles auscultated at the right lower base. Breath sounds equal bilaterally. GASTROINTESTINAL: Abdomen soft, discomfort with palpation in RUQ, nondistended. Normoactive bowel sounds x4. MUSCULOSKELETAL: No obvious deformities. Extremities without edema. NEUROLOGICAL: Awake and alert. Able to move all extremities. No focal neurologic deficit appreciated. Normal speech. PSYCHIATRIC: Appropriate mood and affect; insight and judgment normal. A/P Problem List: (1) Elevated LFTs ICD Code: R79.89 Status: Acute Assessment and Plan 77 y/o male who was just discharged from the hospital and underwent ERCP presented with recurrent abdominal pain; - Sepsis secondary to cholangitis. - Blood cultures positive for E Coli. Repeat blood cultures are pending. - On IV Zoysn - ID following. Pt did have a fever 100.5 and I discussed the case w both Dr. Agee. CT abdomen pelvis shows pneumobilia, inflammation and fluid in the right upper quadrant with no abscess. Also showing basilar consolidation. Will encourage use of incentive spirometer every hour while awake. Encourage out of bed to chair to 3 times daily. - White count trending back up to 14.0. Continue to monitor closely. - Continue to monitor, on TELE.currently on NS@100ml/hr. IF BPs start going down, will give IVF bolus and transfer to ICU for close monitoring. -Lipase going up at 650. Repeat in the morning. LFTs trending down Weakness Diarrhea- new onset. - Likely antibiotic reaction/Zosyn use - C. difficile neg,on Lactinex by mouth TID - mag level wnl - PT consulted as he complains of weakness and for assistance w d/c planning - Monitor - Choledocholithiasis with biliary obstruction and cholangitis - GI following s/p repeat ERCP with sphincterotomy with removal of CBD stone 06/04/17, EGD normal per GI note - pain worsening. See recs above. -Nothing by mouth - Transaminitis - Secondary to above - LFTs trending down - will continue to follow trend - MARLA on chronic renal insufficiency - Creatinine trending down 1.53 today - Avoid nephrotoxic agents - Obtain a.m. BMP to monitor trend - hx of PUD - continue IV Protonix - Dyslipidemia - hold statin due to elevated LFT's - may resume in few weeks as outpatient -DVT prophylaxis - SCD's Discharge Planning monitor pt closely. if worsening consider transferring to ICU Repeat a.m. labs. Encouraged use of incentive spirometer to prevent pneumonia. Fevers most likely attributed to current condition and beginning of atelectasis. Continue Zosyn. DC pending further workup and clinical improvement Sharmaine Haddad MD Jun 07, 2017 09:28
[2017-06-07] MEDS: POTASSIUM CHLOR 20 MEQ PREMIX 100 ML IV SCH ×2 (10:39→12:59)
[2017-06-07 12:00] VITALS: BP 130/65; PULSE 75; RESP 19; TEMP 99.8; O2SAT 95
[2017-06-07] MEDS: PANTOPRAZOLE SODIUM 40 MG VIAL IV PUSH SCH (12:59)
[2017-06-07 16:00] VITALS: BP 173/87; PULSE 74; RESP 20; TEMP 97.8; O2SAT 99
--- NOTE | 2017-06-07 16:40 | HHI.GIFU ---
Subjective Remarks Pt resting in bed, asking for food. denies pain, nausea. (Devora Alarcon) Objective Vitals I&O Vital Signs Date Time Temp Pulse Resp B/P Pulse Ox O2 Delivery O2 Flow Rate FiO2 06/07/17 12:00 99.8 75 19 130/65 95 06/07/17 08:00 85 06/07/17 08:00 100.5 79 19 142/70 96 06/07/17 04:00 99.2 81 18 153/81 99 06/07/17 00:00 98.5 70 18 129/71 99 06/06/17 22:35 21 06/06/17 20:12 77 06/06/17 20:00 100.2 80 18 150/77 97 I/O 06/06/17 06/06/17 06/06/17 06/07/17 06/07/17 06/07/17 07:00 15:00 23:00 07:00 15:00 23:00 Intake Total 814 ml 1044 ml 1141 ml 798 ml Output Total 350 ml 600 ml Balance 814 ml 694 ml 1141 ml 198 ml Intake Oral 500 ml 120 ml IV Total 814 ml 544 ml 1141 ml 678 ml Output Urine Total 350 ml 600 ml # Voids 1 1 # Bowel Movements 1 1 0 Laboratory Laboratory Tests Test 06/06/17 06/06/17 06/07/17 18:00 18:16 04:47 Urine Color YELLOW Urine Turbidity CLEAR Urine pH 5.5 Urine Specific Cha[place]in 1.009 Urine Protein 30 Urine Glucose (UA) NEG Urine Ketones NEG Urine Occult Blood SMALL Urine Nitrite NEG Urine Bilirubin NEG Urine Urobilinogen LESS THAN 2.0 Urine Leukocyte Esterase NEG Urine RBC 3 Urine WBC LESS THAN 1 Urine Squamous Epithelial <1 Cells Urine Bacteria RARE Urine Mucus FEW Microscopic Urinalysis Comment CULT NOT INDICATED White Blood Count 12.8 14.0 Red Blood Count 4.19 4.43 Hemoglobin 11.6 12.3 Hematocrit 34.8 37.2 Mean Corpuscular Volume 83.0 83.8 Mean Corpuscular Hemoglobin 27.7 27.7 Mean Corpuscular Hemoglobin 33.3 33.1 Concent Red Cell Distribution Width 15.1 15.1 Platelet Count 113 107 Mean Platelet Volume 7.8 7.9 Neutrophils (%) (Auto) 77.1 72.0 Lymphocytes (%) (Auto) 11.9 13.5 Monocytes (%) (Auto) 10.2 13.2 Eosinophils (%) (Auto) 0.6 1.1 Basophils (%) (Auto) 0.2 0.2 Neutrophils # (Auto) 9.9 10.1 Lymphocytes # (Auto) 1.5 1.9 Monocytes # (Auto) 1.3 1.8 Eosinophils # (Auto) 0.1 0.2 Basophils # (Auto) 0.0 0.0 CBC Comment DIFF FINAL AUTO DIFF Differential Comment FINAL DIFF MANUAL Sodium Level 138 140 Potassium Level 3.5 3.4 Chloride Level 109 111 Carbon Dioxide Level 21.2 19.9 Anion Gap 8 9 Blood Urea Nitrogen 12 11 Creatinine 1.74 1.53 Estimat Glomerular Filtration 38 44 Rate Random Glucose 121 112 Lactic Acid Level 0.9 Calcium Level 8.1 8.2 Total Bilirubin 1.3 1.3 Aspartate Amino Transf 54 43 (AST/SGOT) Alanine Aminotransferase 93 84 (ALT/SGPT) Alkaline Phosphatase 108 105 Total Protein 6.2 6.6 Albumin 1.9 1.9 Lipase 614 Differential Total Cells 100 Counted Neutrophils % (Manual) 68 Band Neutrophils % 2 Lymphocytes % 17 Monocytes % 11 Eosinophils % 1 Basophils % 1 Neutrophils # (Manual) 9.8 Nucleated Red Blood Cells 1 Platelet Estimate LOW Platelet Morphology Comment NORMAL Red Cell Morphology Comment NORMAL Date/Time Procedure Status Source Growth 06/06/17 22:20 Aerobic Blood Culture - Preliminary Resulted Blood Peripheral NO GROWTH IN 1 DAY 06/06/17 22:20 Anaerobic Blood Culture - Preliminary Resulted Blood Peripheral NO GROWTH IN 1 DAY 06/03/17 09:57 Influenza Types A,B Antigen (FARHAD) - Final Complete Nasal Aspirate NEGATIVE FOR FLU A AND B ANTIGEN.... Imaging Last Impressions Abdomen/Pelvis CT 06/06/17 0000 Signed Impressions: Service Date/Time: Tuesday, June 06, 2017 21:46 - CONCLUSION: 1. There is pneumobilia mild inflammation and fluid in the right upper quadrant in this patient who is status post cholecystectomy. There is no evidence for abscess. 2. Bilateral pleural effusions and basilar consolidation. 3. Right renal scarring. 4. Atherosclerosis. Td Sullivan MD Abdomen X-Ray 06/06/17 0000 Signed Impressions: Service Date/Time: Tuesday, June 06, 2017 09:48 - CONCLUSION: No acute abnormalities. Minimal left basilar density. Javy Parra MD GI Procedure 06/04/17 0000 Signed Impressions: Service Date/Time: Sunday, June 04, 2017 14:02 - CONCLUSION: ERCP as above. Trinidad Bermudez MD Chest X-Ray 06/03/17 0946 Signed Impressions: Service Date/Time: Saturday, June 03, 2017 09:50 - CONCLUSION: Mild left basilar airspace disease. Otherwise stable chest. Carlo Griggs MD Physical Exam HEENT: Normocephalic; atraumatic; no jaundice. CHEST: CTA CARDIAC: RRR. ABDOMEN: Soft, nondistended, nontender; no hepatosplenomegaly; bowel sounds are present in all four quadrants. EXTREMITIES: No clubbing, cyanosis, or edema. SKIN: Normal; no rash; no jaundice. LOCKSMITH: No focal deficits; lethargic and oriented times three. (Devora Alarcon) Assessment and Plan Plan ASSESSMENT: - Choledocholithiasis with biliary obstruction and cholangitis. CT 06-06-17--> no acute abnormalities Abdomen/Pelvis CT (06/03/17)-----> Enlarging common bile duct with suspected distal common bile duct stone. Status post cholecystectomy. Otherwise stable chest. S/P ERCP with sphincterotomy and stone removal (06/04/17)-----> normal egd, large common bile duct stone, removed as above, periampullary diverticulum. WBC is improving. LFTs trending down. Clinically, he is not feeling well today- generalized malaise, ruq tenderness. Had a low grade fever last night. Heart healthy diet. Zosyn. - Biliary sepsis secondary to above. BCx with E. Coli. WBC 14.0. Zosyn per ID - Anemia. Hgb 12.3 No acute blood loss. PPI. - MARLA, Creat improving - Hypertension, diabetes mellitus, Hx prostate cancer. Per attending. - Hx PUD. PPI PLAN: - Heart healthy diet - soft - Cont. PPI - Cont. Zosyn per ID recommendations - CBC, CMP in am - Supportive care - Further recommendations to follow based on results of above - Pt seen and examined by Dr. Arshad and myself and this note is written on her behalf (Devora Alarcon) Physician Comments seen, examined agree with above (Sharon Arshad MD) Devora Alarcon Jun 07, 2017 16:40 Sharon Arshad MD Jun 07, 2017 17:36
[2017-06-07 20:00] VITALS: BP 147/77; PULSE 74; PULSE 75; RESP 17; TEMP 100.6; O2SAT 98
[2017-06-07] MEDS: ZOLPIDEM TARTRATE 5 MG TAB PO PRN (22:43)
[2017-06-08] VITALS (7 sets, daily range): BP systolic 129–159; BP diastolic 70–74; PULSE 71–86; RESP 17–20; TEMP 97.8–101.2; O2SAT 95–99
[2017-06-08] MEDS: SODIUM CHLOR 0.9% 1000 ML INJ 1,000 ML IV SCH ×2 (03:16→17:31)
[2017-06-08] MEDS: PIPERACIL-TAZO 2.25 GM PREMIX 50 ML IV SCH ×3 (05:28→17:31)
[2017-06-08] MEDS: ALPRAZolam 0.5 MG TAB PO PRN ×2 (05:31→20:24)
--- NOTE | 2017-06-08 07:03 | HHI.PR ---
Objective Vital Signs Date Time Temp Pulse Resp B/P Pulse Ox O2 Delivery O2 Flow Rate FiO2 06/08/17 04:00 98.6 74 17 129/72 98 06/08/17 00:00 99.2 71 17 131/72 98 06/07/17 20:00 74 06/07/17 20:00 100.6 75 17 147/77 98 06/07/17 16:00 97.8 74 20 173/87 99 06/07/17 12:00 99.8 75 19 130/65 95 06/07/17 08:00 85 06/07/17 08:00 100.5 79 19 142/70 96 I/O 06/07/17 06/07/17 06/07/17 06/08/17 06/08/17 06/08/17 06:59 14:59 22:59 06:59 14:59 22:59 Intake Total 1141 ml 798 ml 1040 ml 800 ml Output Total 600 ml 800 ml 350 ml Balance 1141 ml 198 ml 240 ml 450 ml Intake Oral 120 ml 240 ml 0 ml IV Total 1141 ml 678 ml 800 ml 800 ml Output Urine Total 600 ml 800 ml 350 ml # Bowel Movements 0 Result Diagram: 06/07/17 0447 06/07/17 0447 Imaging Last Impressions Abdomen/Pelvis CT 06/06/17 0000 Signed Impressions: Service Date/Time: Tuesday, June 06, 2017 21:46 - CONCLUSION: 1. There is pneumobilia mild inflammation and fluid in the right upper quadrant in this patient who is status post cholecystectomy. There is no evidence for abscess. 2. Bilateral pleural effusions and basilar consolidation. 3. Right renal scarring. 4. Atherosclerosis. Td Sullivan MD Abdomen X-Ray 06/06/17 0000 Signed Impressions: Service Date/Time: Tuesday, June 06, 2017 09:48 - CONCLUSION: No acute abnormalities. Minimal left basilar density. Javy Parra MD GI Procedure 06/04/17 0000 Signed Impressions: Service Date/Time: Sunday, June 04, 2017 14:02 - CONCLUSION: ERCP as above. Trinidad Bermudez MD Chest X-Ray 06/03/17 0946 Signed Impressions: Service Date/Time: Saturday, June 03, 2017 09:50 - CONCLUSION: Mild left basilar airspace disease. Otherwise stable chest. Carlo Griggs MD A/P Assessment and Plan 77 y/o male who was just discharged from the hospital and underwent ERCP presented with recurrent abdominal pain; - Sepsis secondary to cholangitis. - Blood cultures positive for E Coli. Repeat blood cultures are pending. - On IV Zoysn - ID following. Pt did have a fever 100.5 and I discussed the case w both Dr. Agee. CT abdomen pelvis shows pneumobilia, inflammation and fluid in the right upper quadrant with no abscess. Also showing basilar consolidation. Will encourage use of incentive spirometer every hour while awake. Encourage out of bed to chair to 3 times daily. - White count trending back up to 14.0. Continue to monitor closely. - Continue to monitor, on TELE.currently on NS@100ml/hr. IF BPs start going down, will give IVF bolus and transfer to ICU for close monitoring. -Lipase going up at 650. Repeat in the morning. LFTs trending down Weakness Diarrhea- new onset. - Likely antibiotic reaction/Zosyn use - C. difficile neg,on Lactinex by mouth TID - mag level wnl - PT consulted as he complains of weakness and for assistance w d/c planning - Monitor - Choledocholithiasis with biliary obstruction and cholangitis - GI following s/p repeat ERCP with sphincterotomy with removal of CBD stone 06/04/17, EGD normal per GI note - pain worsening. See recs above. -Nothing by mouth - Transaminitis - Secondary to above - LFTs trending down - will continue to follow trend - MARLA on chronic renal insufficiency - Creatinine trending down 1.53 today - Avoid nephrotoxic agents - Obtain a.m. BMP to monitor trend - hx of PUD - continue IV Protonix - Dyslipidemia - hold statin due to elevated LFT's - may resume in few weeks as outpatient -DVT prophylaxis - SCD's Emma Eubanks MD Jun 08, 2017 07:03
[2017-06-08 08:16] LABS: BASOPHIL % 0.3 % (0.0-2.0); EOSINOPHIL # 0.1 TH/MM3 (0-0.4); HEMATOCRIT 32.1 % (39.0-51.0); LYMPH % 12.1 % (9.0-44.0); LYMPHOCYTE # 1.3 TH/MM3 (1.0-4.8); MEAN CORPUSCULAR HEMOGLOBIN 27.8 PG (27.0-34.0); MEAN CORPUSCULAR HGB CONC 33.6 % (32.0-36.0); MONO % 19.6 % (0.0-8.0); PLATELET COUNT 132 TH/MM3 (150-450); RED BLOOD COUNT 3.87 MIL/MM3 (4.50-5.90); RED CELL DISTRIBUTION WIDTH 15.2 % (11.6-17.2); WHITE BLOOD COUNT 10.4 TH/MM3 (4.0-11.0)
[2017-06-08 08:17] LABS: HEMO FLAGS AUTO DIFF
[2017-06-08] MEDS: LACTOBACILLUS ACIDOPHILUS 1 GM PACKET PO SCH ×3 (08:37→17:32)
[2017-06-08 08:45] LABS: ALT (GPT) 51 U/L (12-78); ANION GAP 11 MEQ/L (5-15); AST (GOT) 23 U/L (15-37); BICARBONATE 21.8 MEQ/L (21.0-32.0); BLOOD UREA NITROGEN 9 MG/DL (7-18); CHLORIDE 107 MEQ/L (98-107); GLOMERULAR FILTRATION RATE 46 ML/MIN (>89); POTASSIUM 3.6 MEQ/L (3.5-5.1); SODIUM (NA) 140 MEQ/L (136-145)
[2017-06-08 08:47] LABS: ALKALINE PHOSPHATASE 78 U/L (45-117); TOTAL BILIRUBIN ADULT 1.1 MG/DL (0.2-1.0)
[2017-06-08 09:01] LABS: SCAN/DIFF AUTO DIFF CONFIRMED
--- NOTE | 2017-06-08 10:41 | HHI.PR ---
Subjective Remarks sitting on the chair with no acute distress. T max 100.6. has mild abdominal pain. no nausea or vomiting. Objective Vitals Vital Signs Date Time Temp Pulse Resp B/P Pulse Ox O2 Delivery O2 Flow Rate FiO2 06/08/17 08:00 98.8 82 19 153/73 99 06/08/17 04:00 98.6 74 17 129/72 98 06/08/17 00:00 99.2 71 17 131/72 98 06/07/17 20:00 74 06/07/17 20:00 100.6 75 17 147/77 98 06/07/17 16:00 97.8 74 20 173/87 99 06/07/17 12:00 99.8 75 19 130/65 95 I/O 06/07/17 06/07/17 06/07/17 06/08/17 06/08/17 06/08/17 07:00 15:00 23:00 07:00 15:00 23:00 Intake Total 1141 ml 798 ml 1040 ml 800 ml 120 ml Output Total 600 ml 800 ml 350 ml Balance 1141 ml 198 ml 240 ml 450 ml 120 ml Intake Oral 120 ml 240 ml 0 ml 120 ml IV Total 1141 ml 678 ml 800 ml 800 ml Output Urine Total 600 ml 800 ml 350 ml # Bowel Movements 0 Result Diagram: 06/08/17 0644 06/08/17 0644 Imaging Last Impressions Abdomen/Pelvis CT 06/06/17 0000 Signed Impressions: Service Date/Time: Tuesday, June 06, 2017 21:46 - CONCLUSION: 1. There is pneumobilia mild inflammation and fluid in the right upper quadrant in this patient who is status post cholecystectomy. There is no evidence for abscess. 2. Bilateral pleural effusions and basilar consolidation. 3. Right renal scarring. 4. Atherosclerosis. Td Sullivan MD Abdomen X-Ray 06/06/17 0000 Signed Impressions: Service Date/Time: Tuesday, June 06, 2017 09:48 - CONCLUSION: No acute abnormalities. Minimal left basilar density. Javy Parra MD GI Procedure 06/04/17 0000 Signed Impressions: Service Date/Time: Sunday, June 04, 2017 14:02 - CONCLUSION: ERCP as above. Trinidad Bermudez MD Chest X-Ray 06/03/17 0946 Signed Impressions: Service Date/Time: Saturday, June 03, 2017 09:50 - CONCLUSION: Mild left basilar airspace disease. Otherwise stable chest. Carlo Griggs MD Objective Remarks GENERAL: This is a well-nourished, well-developed patient, in no apparent distress. CARDIOVASCULAR: Regular rate and regular rhythm without murmurs, gallops, or rubs. RESPIRATORY: Clear to auscultation. Breath sounds equal bilaterally. No wheezes , rales, or rhonchi. GASTROINTESTINAL: Abdomen soft, non-tender, nondistended. Normal, active bowel sounds MUSCULOSKELETAL: Extremities without clubbing, cyanosis, or edema. NEURO: Alert & Oriented x4 to person, place, time, situation. Moves all ext x4 Medications and IVs Current Medications Acetaminophen 650 mg 650 mg ONCE ONCE RECTAL Last administered on 06/03/17 10 :08; Start 06/03/17 at 10:00; Stop 06/03/17 at 10:01; Status DC Sodium Chloride 1,000 ml @ 999 mls/hr BOLUS ONCE IV Last administered on 06/03 10:08; Start 06/03/17 at 10:00; Stop 06/03/17 at 11:00; Status DC Piperacillin Sod/ Tazobactam Sod 50 ml @ 100 mls/hr ONCE ONCE IV Last administered on 06/03/17 10:58; Start 06/03/17 at 11:00; Stop 06/03/17 at 11:29 ; Status DC Vancomycin HCl 1350 mg/Sodium Chloride 513.5 ml @ 250 mls/hr ONCE ONCE IV Last administered on 06/03/17 12:06; Start 06/03/17 at 11:00; Stop 06/03/17 at 13:03; Status DC Sodium Chloride (NS 1000 ml Inj) 1,000 ml @ 999 mls/hr BOLUS ONCE IV Last administered on 06/03/17 10:58; Start 06/03/17 at 11:00; Stop 06/03/17 at 12:00 ; Status DC Ondansetron HCl (Zofran Inj) 4 mg ONCE ONCE IV PUSH Last administered on 11:14; Start 06/03/17 at 11:00; Stop 06/03/17 at 11:01; Status DC Potassium Chloride (KCl) 30 meq ONCE ONCE PO Last administered on 06/03/17 12 :37; Start 06/03/17 at 11:30; Stop 06/03/17 at 11:31; Status DC Ondansetron HCl (Zofran Inj) 4 mg Q8HR PRN IV PUSH NAUSEA; Start 06/03/17 at 14 :00 Acetaminophen (Tylenol) 325 mg Q6HR NEB PRN PO FEVER Last administered on 20:12; Start 06/03/17 at 14:00 Hydromorphone HCl 0.5 mg 0.5 mg Q4H PRN IV PUSH BREAKTHROUGH PAIN Last administered on 06/06/17 11:36; Start 06/03/17 at 14:00 Sodium Chloride 1,000 ml @ 100 mls/hr Q10H IV Last administered on 06/08/17 03:16; Start 06/03/17 at 14:00 Piperacillin Sod/ Tazobactam Sod (Zosyn 2.25 Gm Premix) 50 ml @ 100 mls/hr Q6H IV Last administered on 06/08/17 05:28; Start 06/03/17 at 18:00 Pantoprazole Sodium (Protonix Inj) 40 mg Q24H IV PUSH Last administered on 06/07 12:59; Start 06/03/17 at 14:00 Alprazolam 0.5 mg 0.5 mg Q6H PRN PO ANXIETY Last administered on 06/08/17 05: 31; Start 06/03/17 at 14:00 Sodium Chloride (NS 500 ml Inj) 500 ml @ 0 mls/hr BOLUS ONCE IV Last administered on 06/03/17 15:57; Start 06/03/17 at 16:00; Stop 06/03/17 at 16:01 ; Status DC Zolpidem Tartrate 5 mg 5 mg HS PRN PO SLEEP Last administered on 06/07/17 22: 43; Start 06/04/17 at 00:30 Lactated Ringer's (Lr 1000 ml Inj) 1,000 ml @ 30 mls/hr Q24H PRN IV SEE LABEL COMMENTS; Start 06/04/17 at 05:30; Stop 06/07/17 at 05:29; Status DC Fentanyl Citrate (fentaNYL INJ) 100 mcg STK-MED ONCE .ROUTE ; Start 06/04/17 at 13:35; Stop 06/04/17 at 13:36; Status DC Miscellaneous Information ALL NURSING DEPARTME... UNSCH PRN .XX SEE LABEL COMMENTS; Start 06/04/17 at 15:15; Stop 06/05/17 at 15:14; Status DC Iohexol (Omnipaque 300 Inj) 50 ml STK-MED ONCE .XX Last administered on 14:00; Start 06/04/17 at 14:00; Stop 06/04/17 at 15:36; Status DC Propofol (Diprivan 200 Mg/20 ml Inj) 200 mg STK-MED ONCE IV ; Start 06/04/17 at 15:42; Stop 06/04/17 at 15:43; Status DC Lactobacillus Acidophilus (Lactinex Pkt) 1 gm TID PO Last administered on 08:37; Start 06/05/17 at 18:00 Albuterol/ Ipratropium (Duoneb Neb) 1 ampule Q6HR NEB PRN NEB SHORTNESS OF BREATH Last administered on 06/06/17 13:05; Start 06/06/17 at 12:30 Oxycodone/ Acetaminophen (Percocet 5-325 Mg) 1 tab Q4H PRN PO PAIN SCALE 3 TO 5 Last administered on 06/07/17 16:42; Start 06/06/17 at 18:00 Oxycodone/ Acetaminophen (Percocet 10-325 Mg) 1 tab Q6H PRN PO PAIN SCALE 6 TO 10; Start 06/06/17 at 18:00 Diatrizoate Meglum/ Diatrizoate Sod ( Gastroview Liq) 18 ml ONCE ONCE PO Last administered on 06/06/17 18:20; Start 06/06/17 at 18:15; Stop 06/06/17 at 18:16; Status DC Iodixanol (VISIPAQUE 320 INJ (Rad CT)) 50 ml STK-MED ONCE IV Last administered on 06/06/17 22:02; Start 06/06/17 at 22:02; Stop 06/06/17 at 22:03; Status DC Ephedrine Sulfate (ePHEDrine/NS 25 MG/5 ML SYR) 25 mg STK-MED ONCE IV ; Start at 12:00; Stop 06/07/17 at 09:15; Status DC Ondansetron HCl 4 mg 4 mg STK-MED ONCE IV PUSH ; Start 06/04/17 at 12:00; Stop 06/07/17 at 09:15; Status DC Potassium Chloride (KCl 20 Meq Premix Inj) 100 ml @ 50 mls/hr Q2H IV Last administered on 06/07/17t 12:59; Start 06/07/17 at 10:00; Stop 06/07/17 at 13:59 ; Status DC A/P Assessment and Plan A/P - Sepsis secondary to cholangitis. - Blood cultures positive for E Coli. Repeat blood cultures negative so far. - On IV Zoysn - ID following. CT abdomen pelvis shows pneumobilia, inflammation and fluid in the right upper quadrant with no abscess. Also showing basilar consolidation. Weakness Diarrhea- - Likely antibiotic reaction/Zosyn use - C. difficile neg,on Lactinex by mouth TID - mag level wnl - PT consulted as he complains of weakness and for assistance w d/c planning - Monitor - Choledocholithiasis with biliary obstruction and cholangitis - GI following s/p repeat ERCP with sphincterotomy with removal of CBD stone 06/04/17, EGD normal per GI note -started on diet -GI following. - Transaminitis - Secondary to above - LFTs trending down - will continue to follow trend - MARLA on chronic renal insufficiency - Creatinine fairly stable - Avoid nephrotoxic agents -will monitor - hx of PUD - continue Protonix - Dyslipidemia - hold statin due to elevated LFT's - may resume in few weeks as outpatient -DVT prophylaxis - SCD's Nancy Corona MD Jun 08, 2017 10:41
--- NOTE | 2017-06-08 16:14 | HHI.GIFU ---
Subjective Remarks Pt resting in bed, tolerating diet. "I do not like wild rice. I want to order tilapia." Denies nausea, pain. Says he has started coughing up nonbloody mucus. (Devora Alarcon) Objective Vitals I&O Vital Signs Date Time Temp Pulse Resp B/P Pulse Ox O2 Delivery O2 Flow Rate FiO2 06/08/17 12:00 99.8 86 20 146/70 98 06/08/17 08:00 98.8 82 19 153/73 99 06/08/17 04:00 98.6 74 17 129/72 98 06/08/17 00:00 99.2 71 17 131/72 98 06/07/17 20:00 74 06/07/17 20:00 100.6 75 17 147/77 98 I/O 06/07/17 06/07/17 06/07/17 06/08/17 06/08/17 06/08/17 07:00 15:00 23:00 07:00 15:00 23:00 Intake Total 1141 ml 798 ml 1040 ml 800 ml 1080 ml Output Total 600 ml 800 ml 350 ml 600 ml Balance 1141 ml 198 ml 240 ml 450 ml 480 ml Intake Oral 120 ml 240 ml 0 ml 1080 ml IV Total 1141 ml 678 ml 800 ml 800 ml Output Urine Total 600 ml 800 ml 350 ml 600 ml # Bowel Movements 0 0 Laboratory Laboratory Tests Test 06/08/17 06:44 White Blood Count 10.4 Red Blood Count 3.87 Hemoglobin 10.8 Hematocrit 32.1 Mean Corpuscular Volume 83.0 Mean Corpuscular Hemoglobin 27.8 Mean Corpuscular Hemoglobin 33.6 Concent Red Cell Distribution Width 15.2 Platelet Count 132 Mean Platelet Volume 8.2 Neutrophils (%) (Auto) 67.0 Lymphocytes (%) (Auto) 12.1 Monocytes (%) (Auto) 19.6 Eosinophils (%) (Auto) 1.0 Basophils (%) (Auto) 0.3 Neutrophils # (Auto) 7.0 Lymphocytes # (Auto) 1.3 Monocytes # (Auto) 2.0 Eosinophils # (Auto) 0.1 Basophils # (Auto) 0.0 CBC Comment AUTO DIFF Differential Comment AUTO DIFF CONFIRMED Sodium Level 140 Potassium Level 3.6 Chloride Level 107 Carbon Dioxide Level 21.8 Anion Gap 11 Blood Urea Nitrogen 9 Creatinine 1.49 Estimat Glomerular Filtration 46 Rate Random Glucose 102 Calcium Level 8.0 Total Bilirubin 1.1 Aspartate Amino Transf 23 (AST/SGOT) Alanine Aminotransferase 51 (ALT/SGPT) Alkaline Phosphatase 78 Total Protein 6.0 Albumin 1.7 Lipase 569 Date/Time Procedure Status Source Growth 06/06/17 22:20 Aerobic Blood Culture - Preliminary Resulted Blood Peripheral NO GROWTH IN 2 DAYS 06/06/17 22:20 Anaerobic Blood Culture - Preliminary Resulted Blood Peripheral NO GROWTH IN 2 DAYS Imaging Last Impressions Abdomen/Pelvis CT 06/06/17 0000 Signed Impressions: Service Date/Time: Tuesday, June 06, 2017 21:46 - CONCLUSION: 1. There is pneumobilia mild inflammation and fluid in the right upper quadrant in this patient who is status post cholecystectomy. There is no evidence for abscess. 2. Bilateral pleural effusions and basilar consolidation. 3. Right renal scarring. 4. Atherosclerosis. Td Sullivan MD Abdomen X-Ray 06/06/17 0000 Signed Impressions: Service Date/Time: Tuesday, June 06, 2017 09:48 - CONCLUSION: No acute abnormalities. Minimal left basilar density. Javy Parra MD GI Procedure 06/04/17 0000 Signed Impressions: Service Date/Time: Sunday, June 04, 2017 14:02 - CONCLUSION: ERCP as above. Trinidad Bermudez MD Chest X-Ray 06/03/17 0946 Signed Impressions: Service Date/Time: Saturday, June 03, 2017 09:50 - CONCLUSION: Mild left basilar airspace disease. Otherwise stable chest. Carlo Griggs MD Physical Exam HEENT: Normocephalic; atraumatic; no jaundice. CHEST: CTA CARDIAC: RRR. ABDOMEN: Soft, nondistended, nontender; no hepatosplenomegaly; bowel sounds are present in all four quadrants. EXTREMITIES: No clubbing, cyanosis, or edema. SKIN: Normal; no rash; no jaundice. SCHOLASTIC APTITUDE TEST GRADER: No focal deficits; lethargic and oriented times three. (Devora Alarcon BUGGY LOADER) Assessment and Plan Plan ASSESSMENT: - Choledocholithiasis with biliary obstruction and cholangitis. CT 06-06-17--> no acute abnormalities Abdomen/Pelvis CT (06/03/17)-----> Enlarging common bile duct with suspected distal common bile duct stone. Status post cholecystectomy. Otherwise stable chest. S/P ERCP with sphincterotomy and stone removal (06/04/17)-----> normal egd, large common bile duct stone, removed as above, periampullary diverticulum. WBC is improving. LFTs trending down, now WNL and Tbil 1.1 Lipase 569. Heart healthy diet. Zosyn. - Biliary sepsis secondary to above. BCx with E. Coli. WBC decreasing. Zosyn per ID - Anemia. Hgb 12.3 No acute blood loss. PPI. - MARLA, Creat improving - Hypertension, diabetes mellitus, Hx prostate cancer. Per attending. - Hx PUD. PPI PLAN: - Heart healthy diet - soft - Cont. PPI - Cont. Zosyn per ID recommendations - CBC, CMP in am - Supportive care - Further recommendations to follow based on results of above - Pt seen and examined by Dr. Arshad and myself and this note is written on her behalf (Devora Alarcon) Devora Alarcon Jun 08, 2017 16:14 Sharon Arshad MD Jun 08, 2017 18:14
[2017-06-08] MEDS: PANTOPRAZOLE SODIUM 40 MG VIAL IV PUSH SCH (17:31)
[2017-06-08] MEDS: oxyCODONE/ACETAMINOPHEN 5 MG/325 MG TAB PO PRN (20:24)
[2017-06-09] VITALS (8 sets, daily range): BP systolic 124–157; BP diastolic 63–74; PULSE 69–86; RESP 17–20; TEMP 96.7–100.9; O2SAT 97–99
[2017-06-09] MEDS: ACETAMINOPHEN 325 MG TAB PO PRN ×2 (00:26→15:45)
[2017-06-09] MEDS: PIPERACIL-TAZO 2.25 GM PREMIX 50 ML IV SCH ×5 (00:27→23:18)
[2017-06-09] MEDS: SODIUM CHLOR 0.9% 1000 ML INJ 1,000 ML IV SCH ×3 (00:27→20:00)
[2017-06-09] MEDS: oxyCODONE/ACETAMINOPHEN 5 MG/325 MG TAB PO PRN ×2 (05:27→23:19)
[2017-06-09 05:43] LABS: ANION GAP 8 MEQ/L (5-15); AST (GOT) 24 U/L (15-37); BICARBONATE 23.1 MEQ/L (21.0-32.0); BLOOD UREA NITROGEN 10 MG/DL (7-18); CHLORIDE 109 MEQ/L (98-107); GLOMERULAR FILTRATION RATE 48 ML/MIN (>89); POTASSIUM 3.7 MEQ/L (3.5-5.1); SODIUM (NA) 140 MEQ/L (136-145)
[2017-06-09 05:44] LABS: ALT (GPT) 39 U/L (12-78)
[2017-06-09 05:46] LABS: ALKALINE PHOSPHATASE 74 U/L (45-117)
[2017-06-09 05:49] LABS: MEAN CELL VOLUME 82.6 FL (80.0-100.0); MEAN CORPUSCULAR HEMOGLOBIN 27.7 PG (27.0-34.0); MEAN CORPUSCULAR HGB CONC 33.6 % (32.0-36.0); PLATELET COUNT 160 TH/MM3 (150-450); RED BLOOD COUNT 3.75 MIL/MM3 (4.50-5.90); RED CELL DISTRIBUTION WIDTH 14.9 % (11.6-17.2); REVIEW FLAG FINAL; WHITE BLOOD COUNT 9.7 TH/MM3 (4.0-11.0)
[2017-06-09] MEDS: LACTOBACILLUS ACIDOPHILUS 1 GM PACKET PO SCH ×3 (08:49→17:24)
--- NOTE | 2017-06-09 11:57 | HHI.PR ---
Subjective Remarks The patient has been seen and examined this morning. His vitals are stable he' s afebrile. States abd pain significantly improved. States no pain with eating. Feels weak, with help able to get to chair and bathroom. States he does not want to go to rehab, wants a home health nurse to help him. Feels he cannot take care of himself. States he has chills. Objective Vital Signs Date Time Temp Pulse Resp B/P Pulse Ox O2 Delivery O2 Flow Rate FiO2 06/09/17 08:00 97.6 75 19 131/63 98 06/09/17 04:00 96.7 69 19 155/73 98 06/09/17 00:00 98.9 82 19 124/73 98 06/08/17 22:00 78 06/08/17 20:00 101.2 85 18 142/70 98 06/08/17 16:00 97.8 79 19 159/74 95 06/08/17 12:00 99.8 86 20 146/70 98 I/O 06/08/17 06/08/17 06/08/17 06/09/17 06/09/17 06/09/17 07:00 15:00 23:00 07:00 15:00 23:00 Intake Total 800 ml 1080 ml 810 ml 1113 ml 120 ml Output Total 350 ml 600 ml 400 ml 600 ml Balance 450 ml 480 ml 410 ml 513 ml 120 ml Intake Oral 0 ml 1080 ml 360 ml 240 ml 120 ml IV Total 800 ml 450 ml 873 ml Output Urine Total 350 ml 600 ml 400 ml 600 ml # Bowel Movements 0 Result Diagram: 06/09/17 0407 06/09/17 0451 Imaging Last Impressions Abdomen/Pelvis CT 06/06/17 0000 Signed Impressions: Service Date/Time: Tuesday, June 06, 2017 21:46 - CONCLUSION: 1. There is pneumobilia mild inflammation and fluid in the right upper quadrant in this patient who is status post cholecystectomy. There is no evidence for abscess. 2. Bilateral pleural effusions and basilar consolidation. 3. Right renal scarring. 4. Atherosclerosis. Td Sullivan MD Abdomen X-Ray 06/06/17 0000 Signed Impressions: Service Date/Time: Tuesday, June 06, 2017 09:48 - CONCLUSION: No acute abnormalities. Minimal left basilar density. Javy Parra MD GI Procedure 06/04/17 0000 Signed Impressions: Service Date/Time: Sunday, June 04, 2017 14:02 - CONCLUSION: ERCP as above. Trinidad Bermudez MD Chest X-Ray 06/03/17 0946 Signed Impressions: Service Date/Time: Saturday, June 03, 2017 09:50 - CONCLUSION: Mild left basilar airspace disease. Otherwise stable chest. Carlo Griggs MD Objective Remarks GENERAL: sitting up in bed, appears comfortable SKIN: Warm and dry. No rash. Small blisters noted on the right upper lip HEENT: Normocephalic. Atraumatic. EOMI. NECK: Supple. Trachea midline. CARDIOVASCULAR: Regular rate and rhythm. No murmur appreciated. RESPIRATORY: No accessory muscle use. Breath sounds equal and clear bilaterally. GASTROINTESTINAL: Abdomen soft, non tender with palpation. Normoactive bowel sounds x4. MUSCULOSKELETAL: No obvious deformities. Extremities without edema. NEUROLOGICAL: Awake and alert. Able to move all extremities. No focal neurologic deficit appreciated. Normal speech. PSYCHIATRIC: Appropriate mood and affect; insight and judgment normal. A/P Problem List: (1) Transaminitis ICD Code: R74.0 (2) Sepsis ICD Code: A41.9 (3) HTN (hypertension) ICD Code: I10 (4) DM (diabetes mellitus) ICD Code: E11.9 (5) Cholangitis ICD Code: K83.0 Assessment and Plan 77 y/o male who was just discharged from the hospital and underwent ERCP presented with recurrent abdominal pain; - Sepsis secondary to cholangitis. - Blood cultures positive for E Coli. Repeat blood cultures negative 3 days.. - Currently on IV Zosyn started 06/03, patient is being followed by infectious disease - Being followed by GI: Choledocholithiasis with biliary obstruction and cholangitis, see imaging above. Status post cholecystectomy. Status post ERCP with large stone removal, and sphincterotomy, normal EGD. Continue soft diet , continue PPI. Leukocytosis improving. Transaminitis improving. Diarrhea- - improved. - Likely antibiotic reaction/Zosyn use - C. difficile neg,on Lactinex by mouth TID - mag level wnl - Monitor - MARLA on chronic renal insufficiency -Improving. - Avoid nephrotoxic agents - Obtain a.m. BMP to monitor trend - hx of PUD - continue IV Protonix - Dyslipidemia - hold statin due to elevated LFT's - may resume in few weeks as outpatient -DVT prophylaxis - SCD's Discharge Planning D/C pending continued clinical improvement. Likely 1-2 days, will need to be cleared by ID and GI. Will go home with HH and front wheeled walker. Emma Eubanks MD Jun 09, 2017 11:57
[2017-06-09] MEDS ORDERED: WALKER WHEELS/F1 MIS (12:17)
--- NOTE | 2017-06-09 12:18 | HHI.FF ---
Face to Face Verification Diagnosis: (1) Transaminitis (2) Physical deconditioning (3) Cholangitis (4) Sepsis Physical Therapy Order: Evaluate and Treat, Improve ambulation, Strength and gait training Home Health Nursing Order: Signs/symptoms of disease process Nursing assessment with vital signs I have seen patient Marya Naylor on 06/09/17. My clinical findings support the need for the requested home health care services because: Deconditioned w/ increased weakness High risk of falls I certify that my clinical findings support that this patient is homebound because: Unsteady gait/balance Emma Eubanks MD Jun 09, 2017 12:18
[2017-06-09] MEDS: PANTOPRAZOLE SODIUM 40 MG VIAL IV PUSH SCH (14:02)
[2017-06-09] MEDS: ALPRAZolam 0.5 MG TAB PO PRN (18:41)
[2017-06-10] VITALS (7 sets, daily range): BP systolic 128–163; BP diastolic 67–83; PULSE 72–89; RESP 17–20; TEMP 96.7–100.5; O2SAT 95–99
[2017-06-10] MEDS: oxyCODONE/ACETAMINOPHEN 5 MG/325 MG TAB PO PRN ×2 (05:28→09:39)
[2017-06-10] MEDS: ALPRAZolam 0.5 MG TAB PO PRN (05:28)
[2017-06-10] MEDS: PIPERACIL-TAZO 2.25 GM PREMIX 50 ML IV SCH (05:29)
[2017-06-10] MEDS: SODIUM CHLOR 0.9% 1000 ML INJ 1,000 ML IV SCH (05:29)
[2017-06-10] MEDS: LACTOBACILLUS ACIDOPHILUS 1 GM PACKET PO SCH ×3 (09:39→18:10)
--- NOTE | 2017-06-10 10:48 | HHI.PR ---
Subjective Remarks The patient has been seen and examined this morning. His vitals are stable he' s afebrile. Wants to go home. Refusing to go to SNF, feels if he can have home health that his neighboor and his daughter (who arrives next week) can help care for him. After further conversation patient wishes to go to SNF. Objective Vital Signs Date Time Temp Pulse Resp B/P Pulse Ox O2 Delivery O2 Flow Rate FiO2 06/10/17 08:00 97.6 72 18 128/67 99 06/10/17 04:00 96.7 80 19 155/74 98 06/10/17 00:00 99.2 89 20 155/77 97 06/09/17 22:00 77 06/09/17 20:00 97.5 74 18 137/68 99 06/09/17 16:45 18 06/09/17 16:00 100.9 86 17 157/74 97 06/09/17 12:00 97.6 86 20 135/73 98 I/O 06/09/17 06/09/17 06/09/17 06/10/17 06/10/17 06/10/17 07:00 15:00 23:00 07:00 15:00 23:00 Intake Total 1113 ml 1945 ml 815 ml 1065 ml Output Total 600 ml 600 ml 400 ml Balance 513 ml 1345 ml 815 ml 665 ml Intake Oral 240 ml 1080 ml 240 ml 120 ml IV Total 873 ml 865 ml 575 ml 945 ml Output Urine Total 600 ml 600 ml 400 ml # Voids 2 # Bowel Movements 1 1 1 Result Diagram: 06/09/17 0407 06/09/17 0451 Imaging Last Impressions Abdomen/Pelvis CT 06/06/17 0000 Signed Impressions: Service Date/Time: Tuesday, June 06, 2017 21:46 - CONCLUSION: 1. There is pneumobilia mild inflammation and fluid in the right upper quadrant in this patient who is status post cholecystectomy. There is no evidence for abscess. 2. Bilateral pleural effusions and basilar consolidation. 3. Right renal scarring. 4. Atherosclerosis. Td Sullivan MD Abdomen X-Ray 06/06/17 0000 Signed Impressions: Service Date/Time: Tuesday, June 06, 2017 09:48 - CONCLUSION: No acute abnormalities. Minimal left basilar density. Javy Parra MD GI Procedure 06/04/17 0000 Signed Impressions: Service Date/Time: Sunday, June 04, 2017 14:02 - CONCLUSION: ERCP as above. Trinidad Bermudez MD Chest X-Ray 06/03/17 0946 Signed Impressions: Service Date/Time: Saturday, June 03, 2017 09:50 - CONCLUSION: Mild left basilar airspace disease. Otherwise stable chest. Carlo Griggs MD Objective Remarks GENERAL: sitting up in bed, appears comfortable SKIN: Warm and dry. No rash. Small blisters noted on the right upper lip HEENT: Normocephalic. Atraumatic. EOMI. NECK: Supple. Trachea midline. CARDIOVASCULAR: Regular rate and rhythm. No murmur appreciated. RESPIRATORY: No accessory muscle use. Breath sounds equal and clear bilaterally. GASTROINTESTINAL: Abdomen soft, non tender with palpation. Normoactive bowel sounds x4. MUSCULOSKELETAL: No obvious deformities. Extremities with 1+ edema,left UE with warm red 2cm palpable area forearm. NEUROLOGICAL: Awake and alert. Able to move all extremities. No focal neurologic deficit appreciated. Normal speech. PSYCHIATRIC: Appropriate mood and affect; insight and judgment normal. A/P Problem List: (1) Transaminitis ICD Code: R74.0 (2) Sepsis ICD Code: A41.9 (3) HTN (hypertension) ICD Code: I10 (4) DM (diabetes mellitus) ICD Code: E11.9 (5) Cholangitis ICD Code: K83.0 Assessment and Plan 77 y/o male who was just discharged from the hospital and underwent ERCP presented with recurrent abdominal pain; - Sepsis secondary to cholangitis. - Blood cultures positive for E Coli. Repeat blood cultures negative 3 days.. - Currently on IV Zosyn started 06/03, patient is being followed by infectious disease - Being followed by GI: Choledocholithiasis with biliary obstruction and cholangitis, see imaging above. Status post cholecystectomy. Status post ERCP with large stone removal, and sphincterotomy, normal EGD. Continue soft diet, continue PPI. Leukocytosis improving. Transaminitis improving. - Dr. Agee to switch to Augmentin Diarrhea- - improved. - Likely antibiotic reaction/Zosyn use - C. difficile neg,on Lactinex by mouth TID - mag level wnl - Monitor - MARLA on chronic renal insufficiency -Improving. - Avoid nephrotoxic agents - Obtain a.m. BMP to monitor trend - hx of PUD - continue IV Protonix - Dyslipidemia - hold statin due to elevated LFT's - may resume in few weeks as outpatient -DVT prophylaxis - SCD's Left forearm swelling/redness/mass - soft tissue US - likely superficial thrombophlebitis Discharge Planning Cleared for d/c home by ID Will go to SNF with front wheeled walker. Placement pending. Emma Eubanks MD Jun 10, 2017 10:48
--- NOTE | 2017-06-10 10:49 | HHI.IDPN ---
Subjective Subjective Remarks afebrile tolerates po OK no pain Antibiotics Pip Tazo Allergies: Coded Allergies: Latex (Verified Allergy, Mild, Itching, 06/03/17) MRI PRECAUTION (Verified Adverse Reaction, Severe, STAPES IMPLANT, 06/03/17 ) PT STATES BILATERAL STAPES IMPLANTS/JLA 05/28/17 Objective . Vital Signs Date Time Temp Pulse Resp B/P Pulse Ox O2 Delivery O2 Flow Rate FiO2 06/10/17 08:00 97.6 72 18 128/67 99 06/10/17 04:00 96.7 80 19 155/74 98 06/10/17 00:00 99.2 89 20 155/77 97 06/09/17 22:00 77 06/09/17 20:00 97.5 74 18 137/68 99 06/09/17 16:45 18 06/09/17 16:00 100.9 86 17 157/74 97 06/09/17 12:00 97.6 86 20 135/73 98 06/09/17 06/09/17 06/10/17 15:00 23:00 07:00 Intake Total 1945 ml 815 ml 1065 ml Output Total 600 ml 400 ml Balance 1345 ml 815 ml 665 ml Intake Oral 1080 ml 240 ml 120 ml IV Total 865 ml 575 ml 945 ml Output Urine Total 600 ml 400 ml # Voids 2 # Bowel Movements 1 1 1 . Laboratory Tests Test 06/09/17 04:07 White Blood Count 9.7 TH/MM3 Red Blood Count 3.75 MIL/MM3 Hemoglobin 10.4 GM/DL Hematocrit 31.0 % Mean Corpuscular Volume 82.6 FL Mean Corpuscular Hemoglobin 27.7 PG Mean Corpuscular Hemoglobin 33.6 % Concent Red Cell Distribution Width 14.9 % Platelet Count 160 TH/MM3 Mean Platelet Volume 8.1 FL Laboratory Tests Test 06/09/17 04:51 Sodium Level 140 MEQ/L Potassium Level 3.7 MEQ/L Chloride Level 109 MEQ/L Carbon Dioxide Level 23.1 MEQ/L Anion Gap 8 MEQ/L Blood Urea Nitrogen 10 MG/DL Creatinine 1.42 MG/DL Estimat Glomerular Filtration 48 ML/MIN Rate Random Glucose 101 MG/DL Calcium Level 8.1 MG/DL Total Bilirubin 1.0 MG/DL Aspartate Amino Transf 24 U/L (AST/SGOT) Alanine Aminotransferase 39 U/L (ALT/SGPT) Alkaline Phosphatase 74 U/L Total Protein 5.8 GM/DL Albumin 1.6 GM/DL Imaging Last Impressions Abdomen/Pelvis CT 06/06/17 0000 Signed Impressions: Service Date/Time: Tuesday, June 06, 2017 21:46 - CONCLUSION: 1. There is pneumobilia mild inflammation and fluid in the right upper quadrant in this patient who is status post cholecystectomy. There is no evidence for abscess. 2. Bilateral pleural effusions and basilar consolidation. 3. Right renal scarring. 4. Atherosclerosis. Td Sullivan MD Abdomen X-Ray 06/06/17 0000 Signed Impressions: Service Date/Time: Tuesday, June 06, 2017 09:48 - CONCLUSION: No acute abnormalities. Minimal left basilar density. Javy Parra MD GI Procedure 06/04/17 0000 Signed Impressions: Service Date/Time: Sunday, June 04, 2017 14:02 - CONCLUSION: ERCP as above. Trinidad Bermudez MD Chest X-Ray 06/03/17 0946 Signed Impressions: Service Date/Time: Saturday, June 03, 2017 09:50 - CONCLUSION: Mild left basilar airspace disease. Otherwise stable chest. Carlo Griggs MD Physical Exam CONSTITUTIONAL/GENERAL: This is an adequately nourished patient, in no apparent distress. TUBES/LINES/DRAINS: SKIN: No jaundice, EYES: Pupils equal and round and reactive. No scleral icterus. CARDIOVASCULAR: Regular rate and rhythm without murmurs, gallops, or rubs. No JVD. Peripheral pulses symmetric. RESPIRATORY/CHEST: Symmetric, unlabored respirations. Clear to auscultation. Breath sounds equal bilaterally. No wheezes, rales, or rhonchi. GASTROINTESTINAL: Abdomen soft, not tender to palpation w/o guarding or rebound, nondistended. No hepato-splenomegaly, or palpable masses. No guarding. Bowel sounds present. MUSCULOSKELETAL: Extremities without clubbing, cyanosis, Prominnet 2-3+ soft pitting BLE edema. NEUROLOGICAL: Awake and alert. Motor and sensory grossly within normal limits. Follows commands. Clear speech Moves all extremities. PSYCHIATRIC: No obvious anxiety/depression. no apparent hallucinations or other psychotic thought process. Assessment & Plan Remarks Biliary sepsis, cholangitis with E.coli bacterimia Biliary obstruction sp ERCP with large stone extraction E.coli sepsis 2/2 cholangitis dc zosyn start Augmentin 500 bis x 5 days to complete 14 days Scripts completed and printed and given to charge nurse OK to dc home from Kandi Bello Dr, MD Jun 10, 2017 10:49
[2017-06-10] MEDS ORDERED: AUGM500T7 PO (10:50)
[2017-06-10] MEDS: AMOXICILLIN/CLAVULANATE K 500 MG TAB PO SCH ×2 (13:34→20:22)
[2017-06-10] MEDS: PANTOPRAZOLE SODIUM 40 MG VIAL IV PUSH SCH (13:38)
--- NOTE | 2017-06-10 14:10 | HHI.GIFU ---
GI Follow-up Note Consult Follow-up Subjective: Patient laying in chair, eating lunch.Feels better, but still weak.No nausea, vomiting , melena, hematemesis, diarrhea.Awaiting to go to rehab or home . Liver enzymes improved Objective: PHYSICAL EXAMINATION: Vitals signs stable No fever Vital Signs Date Time Temp Pulse Resp B/P Pulse Ox O2 Delivery O2 Flow Rate FiO2 06/10/17 12:00 97.3 75 18 138/76 98 06/10/17 08:00 97.6 72 18 128/67 99 HEENT: Pupils round and reactive to light; normocephalic; atraumatic; no jaundice. Throat is clear. NECK: Neck is supple, no JVD, no lymphadenopathy. CHEST: Chest is clear to auscultation and percussion. CARDIAC: Regular rate and rhythm with no murmur gallop or rubs. ABDOMEN: Soft, nondistended, nontender; no hepatosplenomegaly; bowel sounds are present in all four quadrants. EXTREMITIES: No clubbing, cyanosis, edema. SKIN: Normal; no rash; no jaundice. REACTOR OPERATOR: No focal deficits; alert and oriented times three. Available Data (labs, X- Rays, Procedues) : Laboratory Tests Test 06/09/17 06/09/17 04:07 04:51 White Blood Count 9.7 TH/MM3 Red Blood Count 3.75 MIL/MM3 Hemoglobin 10.4 GM/DL Hematocrit 31.0 % Mean Corpuscular Volume 82.6 FL Mean Corpuscular Hemoglobin 27.7 PG Mean Corpuscular Hemoglobin 33.6 % Concent Red Cell Distribution Width 14.9 % Platelet Count 160 TH/MM3 Mean Platelet Volume 8.1 FL Sodium Level 140 MEQ/L Potassium Level 3.7 MEQ/L Chloride Level 109 MEQ/L Carbon Dioxide Level 23.1 MEQ/L Anion Gap 8 MEQ/L Blood Urea Nitrogen 10 MG/DL Creatinine 1.42 MG/DL Estimat Glomerular Filtration 48 ML/MIN Rate Random Glucose 101 MG/DL Calcium Level 8.1 MG/DL Total Bilirubin 1.0 MG/DL Aspartate Amino Transf 24 U/L (AST/SGOT) Alanine Aminotransferase 39 U/L (ALT/SGPT) Alkaline Phosphatase 74 U/L Total Protein 5.8 GM/DL Albumin 1.6 GM/DL ASSESSMENT/PLAN: sepsis secondary cholangitis cholangitis -on antibiotics s/p ERCP with sphincterotomy and extraction of large cbd stone mild inflammatory changes in ruq -secondary the above-clinically better elevated lfts secondary cbd stone/cholangitis-improving Recommendations soft diet ok to dc from gi [facility] home or rehab fu gi in 2 weeks lfts in 2 weeks ruq us in 1 month antibiotics as per ID It was a pleasure seeing Marya Naylor. Thank you for this consult. Entered by: Sharon Cameron MD Jun 10, 2017 14:10
--- NOTE | 2017-06-10 17:28 | RADRPT ---
EXAM DATE/TIME: 06/10/2017 16:58 [facility] COMPARISON: No previous studies available for comparison. INDICATIONS : Left arm mass. MEDICAL HISTORY : Hypercholesterolemia. Gastroesophageal reflux disease. Dyspnea. Nausea. Arthritis. Diabetes. Ca rcinoma, prostate. Myocardial infaction. SURGICAL HISTORY : Cholecystectomy. Vein stripping. Bilateral hip replacement. ENCOUNTER: Initial ACUITY: 2 days PAIN SCORE: 7/10 LOCATION: Bilateral upper quadrant AREA EVALUATED: Left medial forearm. FINDINGS: MASSES: None. FLUID COLLECTIONS: None. OTHER: Soft tissue swelling. There is thrombosis of a superficial vein with occlusion. CONCLUSION: 1. Thrombophlebitis of the left forearm. Javy Parra MD on June 10, 2017 at 17:25 Board Certified Radiologist. This report was verified electronically.
[2017-06-10] MEDS: ACETAMINOPHEN 325 MG TAB PO PRN (20:22)
[2017-06-11] VITALS (8 sets, daily range): BP systolic 129–161; BP diastolic 67–80; PULSE 66–80; RESP 17–18; TEMP 95.9–99.9; O2SAT 95–99
[2017-06-11] MEDS: AMOXICILLIN/CLAVULANATE K 500 MG TAB PO SCH ×3 (06:29→20:41)
[2017-06-11] MEDS: ALPRAZolam 0.5 MG TAB PO PRN (06:31)
[2017-06-11] MEDS: LACTOBACILLUS ACIDOPHILUS 1 GM PACKET PO SCH ×3 (08:13→17:11)
[2017-06-11] MEDS ORDERED: IBUPROFEN 400 MG TAB PO ONE (09:30)
--- NOTE | 2017-06-11 09:31 | HHI.PR ---
Subjective Remarks The patient has been seen and examined this morning. Tmax 100.5 yesterday and low grade this am. He reports feeling feverish yesterday. Has been accepted to [facility]. Told nurse he only wants to go to snf if he can leave Wed when his daughter is in town. He is tolerating his diet, and has been out of bed with walker and has also sat in the chair. Objective Vital Signs Date Time Temp Pulse Resp B/P Pulse Ox O2 Delivery O2 Flow Rate FiO2 06/11/17 08:00 99.8 80 18 135/68 98 06/11/17 04:42 98.6 77 17 161/80 95 06/11/17 00:27 99.9 80 17 137/67 95 06/10/17 20:05 100.5 87 17 163/78 95 06/10/17 20:00 88 06/10/17 16:00 98.5 81 18 162/83 98 06/10/17 12:00 97.3 75 18 138/76 98 I/O 06/10/17 06/10/17 06/10/17 06/11/17 06/11/17 06/11/17 06:59 14:59 22:59 06:59 14:59 22:59 Intake Total 1065 ml 690 ml 360 ml 380 ml Output Total 400 ml 650 ml 1000 ml 1000 ml Balance 665 ml 40 ml -640 ml -620 ml Intake Oral 120 ml 120 ml 360 ml 380 ml IV Total 945 ml 570 ml Output Urine Total 400 ml 650 ml 1000 ml 1000 ml # Bowel Movements 1 0 Result Diagram: 06/09/17 0407 06/09/17 0451 Imaging Last Impressions Upper Extremity Ultrasound 06/10/17 0000 Signed Impressions: Service Date/Time: Saturday, June 10, 2017 16:58 - CONCLUSION: 1. Thrombophlebitis of the left forearm. Javy Parra MD Abdomen/Pelvis CT 06/06/17 0000 Signed Impressions: Service Date/Time: Tuesday, June 06, 2017 21:46 - CONCLUSION: 1. There is pneumobilia mild inflammation and fluid in the right upper quadrant in this patient who is status post cholecystectomy. There is no evidence for abscess. 2. Bilateral pleural effusions and basilar consolidation. 3. Right renal scarring. 4. Atherosclerosis. Td Sullivan MD Abdomen X-Ray 06/06/17 0000 Signed Impressions: Service Date/Time: Tuesday, June 06, 2017 09:48 - CONCLUSION: No acute abnormalities. Minimal left basilar density. Javy Parra MD GI Procedure 06/04/17 0000 Signed Impressions: Service Date/Time: Sunday, June 04, 2017 14:02 - CONCLUSION: ERCP as above. Trinidad Bermudez MD Chest X-Ray 06/03/17 0946 Signed Impressions: Service Date/Time: Saturday, June 03, 2017 09:50 - CONCLUSION: Mild left basilar airspace disease. Otherwise stable chest. Carlo Griggs MD Objective Remarks GENERAL: sitting up in bed, appears comfortable SKIN: Warm and dry. No rash. Small blisters noted on the right upper lip HEENT: Normocephalic. Atraumatic. EOMI. NECK: Supple. Trachea midline. CARDIOVASCULAR: Regular rate and rhythm. No murmur appreciated. RESPIRATORY: No accessory muscle use. Breath sounds equal and clear bilaterally. GASTROINTESTINAL: Abdomen soft, non tender with palpation. Normoactive bowel sounds x4. MUSCULOSKELETAL: No obvious deformities. Extremities with 1+ edema,left UE with warm red 2cm palpable area forearm. NEUROLOGICAL: Awake and alert. Able to move all extremities. No focal neurologic deficit appreciated. Normal speech. PSYCHIATRIC: Appropriate mood and affect; insight and judgment normal. A/P Problem List: (1) Transaminitis ICD Code: R74.0 (2) Sepsis ICD Code: A41.9 (3) HTN (hypertension) ICD Code: I10 (4) DM (diabetes mellitus) ICD Code: E11.9 (5) Cholangitis ICD Code: K83.0 Assessment and Plan 77 y/o male who was just discharged from the hospital and underwent ERCP presented with recurrent abdominal pain; - Sepsis secondary to cholangitis. - Blood cultures positive for E Coli. Repeat blood cultures negative 4 days.. - Currently on IV Zosyn started 06/03, patient is being followed by infectious disease - Being followed by GI: Choledocholithiasis with biliary obstruction and cholangitis, see imaging above. Status post cholecystectomy. Status post ERCP with large stone removal, and sphincterotomy, normal EGD. Continue soft diet, continue PPI. Leukocytosis improving. Transaminitis improving. - Dr. Cyndie to switch to Augmentin. - Patient with fever overnight and low grade fever this am. Will hold DC and obtain CBC to ensure no worsening leukocytosis since patient is now on PO abx. Diarrhea- - improved. - Likely antibiotic reaction/Zosyn use - C. difficile neg,on Lactinex by mouth TID - mag level wnl - Monitor - MARLA on chronic renal insufficiency -Improving. - Avoid nephrotoxic agents - Obtain a.m. BMP to monitor trend - hx of PUD - continue IV Protonix - Dyslipidemia - hold statin due to elevated LFT's - may resume in few weeks as outpatient -DVT prophylaxis - SCD's Left forearm swelling/redness/mass - soft tissue US consistent with thrombophlebitis - NSAIDs Discharge Planning HOLD DC until CBC obtained. Cleared for d/c home by ID & GI Will go to SNF with front wheeled walker. CM assisting--> Jude floyd. [id number] Signed. discussed with nurse Emma Eubanks MD Jun 11, 2017 09:31
[2017-06-11 12:16] LABS: HEMATOCRIT 34.4 % (39.0-51.0); MEAN CELL VOLUME 83.3 FL (80.0-100.0); MEAN CORPUSCULAR HEMOGLOBIN 27.2 PG (27.0-34.0); MEAN CORPUSCULAR HGB CONC 32.7 % (32.0-36.0); PLATELET COUNT 267 TH/MM3 (150-450); RED BLOOD COUNT 4.13 MIL/MM3 (4.50-5.90); RED CELL DISTRIBUTION WIDTH 15.1 % (11.6-17.2); REVIEW FLAG FINAL; WHITE BLOOD COUNT 9.7 TH/MM3 (4.0-11.0)
[2017-06-11] MEDS: PANTOPRAZOLE SODIUM 40 MG VIAL IV PUSH SCH (12:28)
--- NOTE | 2017-06-11 14:28 | HHI.DS ---
Discharge Summary Admission Date Jun 03, 2017 at 13:32 Discharge Date: Jun 11, 2017 Admitting Diagnosis Sepsis, transaminitis Consultants Nancy Agee Brief History "patient is a 77 y/o male with history of hypertension, diabetes, prostate cancer, PUD- s/p cholecystectomy, who was just discharged from the hospital after he was admitted with abdominal pain. during that admission, he underwent ERCP and was discharged home with outpatient follow-up. he says that when he went home he started to have abdominal pain again. pain was more or less generalized and severe in intensity. it was associated with nausea and several episodes of emesis. he had some chills and night sweats.at the time of my evaluation he was still complaining of abdominal pain and nausea. he had a fever of 101 at the time of presentation." HPI Dr. Corona CBC/BMP: 06/11/17 1130 06/09/17 0451 Significant Findings Laboratory Tests Test 06/09/17 06/09/17 06/11/17 04:07 04:51 11:30 Red Blood Count 3.75 MIL/MM3 4.13 MIL/MM3 (4.50-5.90) (4.50-5.90) Hemoglobin 10.4 GM/DL 11.2 GM/DL (13.0-17.0) (13.0-17.0) Hematocrit 31.0 % 34.4 % (39.0-51.0) (39.0-51.0) Chloride Level 109 MEQ/L (98-107) Creatinine 1.42 MG/DL (0.60-1.30) Estimat Glomerular Filtration 48 ML/MIN (>89) Rate Calcium Level 8.1 MG/DL (8.5-10.1) Total Protein 5.8 GM/DL (6.4-8.2) Albumin 1.6 GM/DL (3.4-5.0) Imaging Last Impressions Upper Extremity Ultrasound 06/10/17 0000 Signed Impressions: Service Date/Time: Saturday, June 10, 2017 16:58 - CONCLUSION: 1. Thrombophlebitis of the left forearm. Javy Parra MD Abdomen/Pelvis CT 06/06/17 0000 Signed Impressions: Service Date/Time: Tuesday, June 06, 2017 21:46 - CONCLUSION: 1. There is pneumobilia mild inflammation and fluid in the right upper quadrant in this patient who is status post cholecystectomy. There is no evidence for abscess. 2. Bilateral pleural effusions and basilar consolidation. 3. Right renal scarring. 4. Atherosclerosis. Td Sullivan MD Abdomen X-Ray 06/06/17 0000 Signed Impressions: Service Date/Time: Tuesday, June 06, 2017 09:48 - CONCLUSION: No acute abnormalities. Minimal left basilar density. Javy Parra MD GI Procedure 06/04/17 0000 Signed Impressions: Service Date/Time: Sunday, June 04, 2017 14:02 - CONCLUSION: ERCP as above. Trinidad Bermudez MD Chest X-Ray 06/03/17 0946 Signed Impressions: Service Date/Time: Saturday, June 03, 2017 09:50 - CONCLUSION: Mild left basilar airspace disease. Otherwise stable chest. Carlo Griggs MD Hospital Course 77 y/o male who was just discharged from the hospital and underwent ERCP presented with recurrent abdominal pain; found to have sepsis secondary to cholangitis. Blood cultures positive for E Coli. Repeat blood cultures negative 3 days. Completed 8 days of IV zosyn, then switched to PO augmentin. Was seen and evaluated by GI: Choledocholithiasis with biliary obstruction and cholangitis, see imaging above. Status post cholecystectomy. Status post ERCP with large stone removal, and sphincterotomy, normal EGD. Transaminitis improved. By June 11 patient had reached max benefit from in patient hospitalization. He was discharged to SNF. Pt Condition on Discharge: Stable Discharge Disposition: Discharge to SNF Discharge Instructions DIET: Follow Instructions for: As Tolerated, No Restrictions Activities you can perform: Weight Bearing as Heidi Follow up Referrals: Gastroenterology - 06/17/17 with Heather Flower MD PCP Follow-up - 1 Week New Orders: ALT (SGPT) - 2 Weeks AST (SGOT) - 2 Weeks US ABDOMEN GALLBLADD - 1 Month New Medications: Amoxicillin-Clavulanate (Augmentin) 500-125 mg Tab 500 MG PO Q8H Infection Days 5 Ref 0 TAB Walker with Front Wheels (Walker with Front Wheels) 1 Mis Mis 1 EA .ROUTE DIRECTED #1 Ref 0 EA Continued Medications: Alprazolam (Alprazolam) 0.5 Mg Tab 0.5 MG PO Q6H PRN ANXIETY Ref 0 TAB Pantoprazole (Pantoprazole) 40 Mg Tab 40 MG PO Q12HR Prevent Stress Ulcers #60 Ref 3 TAB Simvastatin (Simvastatin) 40 Mg Tab 40 MG PO HS Cholesterol Management Ref 0 TAB Sucralfate Liq (Sucralfate Liq) 1 Gm/10 Ml Franca 1 GM PO ACHS Prevent Stress Ulcers #30 Ref 3 GM Emma Eubanks MD Jun 11, 2017 14:27
[2017-06-12 04:15] VITALS: BP 158/82; PULSE 70; RESP 18; TEMP 97.7; O2SAT 96
[2017-06-12] MEDS: AMOXICILLIN/CLAVULANATE K 500 MG TAB PO SCH ×3 (05:29→20:50)
[2017-06-12] MEDS: ALPRAZolam 0.5 MG TAB PO PRN ×2 (05:31→20:51)
[2017-06-12 08:00] VITALS: BP 145/74; PULSE 73; RESP 17; TEMP 97.3; O2SAT 98
[2017-06-12] MEDS: LACTOBACILLUS ACIDOPHILUS 1 GM PACKET PO SCH ×3 (08:53→14:59)
--- NOTE | 2017-06-12 09:49 | HHI.PR ---
Subjective Remarks The patient has been seen and examined this morning. No fevers. Could not go to [facility] yesterday due to availability. Anticipate he will go today. Denies abdominal pain. Not happy with his diet wants more food options. Breathing well, no SOB. Objective Vital Signs Date Time Temp Pulse Resp B/P Pulse Ox O2 Delivery O2 Flow Rate FiO2 06/12/17 08:00 97.3 73 17 145/74 98 06/12/17 04:15 97.7 70 18 158/82 96 06/11/17 23:45 98.2 70 17 148/75 98 06/11/17 20:19 96.8 72 18 150/71 96 06/11/17 20:00 70 06/11/17 16:00 95.9 66 17 129/72 99 06/11/17 12:00 97.8 79 18 131/69 98 I/O 06/11/17 06/11/17 06/11/17 06/12/17 06/12/17 06/12/17 07:00 15:00 23:00 07:00 15:00 23:00 Intake Total 380 ml 240 ml 380 ml 380 ml Output Total 1000 ml 300 ml 700 ml 1350 ml Balance -620 ml -60 ml -320 ml -970 ml Intake Oral 380 ml 240 ml 380 ml 380 ml Output Urine Total 1000 ml 300 ml 700 ml 1350 ml # Voids 2 # Bowel Movements 0 1 2 Result Diagram: 06/11/17 1130 06/09/17 0451 Objective Remarks GENERAL: sitting up in bed, appears comfortable SKIN: Warm and dry. No rash. Small blisters noted on the right upper lip, significantly improved, almost completely clear HEENT: Normocephalic. Atraumatic. EOMI. NECK: Supple. Trachea midline. CARDIOVASCULAR: Regular rate and rhythm. No murmur appreciated. RESPIRATORY: No accessory muscle use. Breath sounds equal and clear bilaterally. GASTROINTESTINAL: Abdomen soft, non tender with palpation. MUSCULOSKELETAL: No obvious deformities. No LE edema. NEUROLOGICAL: Awake and alert. Able to move all extremities. No focal neurologic deficit appreciated. Normal speech. PSYCHIATRIC: Appropriate mood and affect; insight and judgment normal. A/P Problem List: (1) Transaminitis ICD Code: R74.0 (2) Sepsis ICD Code: A41.9 (3) HTN (hypertension) ICD Code: I10 (4) DM (diabetes mellitus) ICD Code: E11.9 (5) Cholangitis ICD Code: K83.0 Assessment and Plan 77 y/o male who was just discharged from the hospital and underwent ERCP presented with recurrent abdominal pain; - Sepsis secondary to cholangitis. - Blood cultures positive for E Coli. Repeat blood cultures negative 4 days.. - Currently on IV Zosyn started 06/03, patient is being followed by infectious disease - Being followed by GI: Choledocholithiasis with biliary obstruction and cholangitis, see imaging above. Status post cholecystectomy. Status post ERCP with large stone removal, and sphincterotomy, normal EGD. Continue soft diet, continue PPI. Leukocytosis improving. Transaminitis improving. - Dr. Agee to switch to Augmentin. 06/10 Diarrhea- - improved. - Likely antibiotic reaction/Zosyn use - C. difficile neg,on Lactinex by mouth TID - mag level wnl - Monitor - MARLA on chronic renal insufficiency -Improving. - Avoid nephrotoxic agents - Obtain a.m. BMP to monitor trend - hx of PUD - continue IV Protonix - Dyslipidemia - hold statin due to elevated LFT's - may resume in few weeks as outpatient -DVT prophylaxis - SCD's Left forearm swelling/redness/mass - soft tissue US consistent with thrombophlebitis - NSAIDs Discharge Planning Cleared for d/c home by ID & GI Will go to SNF with front wheeled walker. CM assisting--> Jude [facility]. [id number] Signed. discussed with nurse Emma Eubanks MD Jun 12, 2017 09:49 Emma Eubanks MD Jun 12, 2017 09:49
[2017-06-12 12:00] VITALS: BP 140/71; PULSE 79; RESP 17; TEMP 97.7; O2SAT 99
[2017-06-12] MEDS: PANTOPRAZOLE SODIUM 40 MG VIAL IV PUSH SCH (14:00)
[2017-06-12 16:00] VITALS: BP 155/76; PULSE 80; RESP 17; TEMP 98.5; O2SAT 97
[2017-06-12 20:00] VITALS: BP 160/77; PULSE 79; RESP 18; TEMP 98.2; O2SAT 97
[2017-06-13] VITALS: BP 151/72; PULSE 79; RESP 18; TEMP 98.3; O2SAT 94
[2017-06-13 04:00] VITALS: BP 139/71; PULSE 74; RESP 18; TEMP 97.5; O2SAT 97
[2017-06-13] MEDS: ALPRAZolam 0.5 MG TAB PO PRN ×2 (04:38→20:35)
[2017-06-13] MEDS: AMOXICILLIN/CLAVULANATE K 500 MG TAB PO SCH ×3 (04:38→20:35)
[2017-06-13 08:00] VITALS: BP 153/84; PULSE 70; RESP 18; TEMP 97.4; O2SAT 99
[2017-06-13] MEDS: LACTOBACILLUS ACIDOPHILUS 1 GM PACKET PO SCH ×3 (08:24→18:13)
--- NOTE | 2017-06-13 11:26 | HHI.PR ---
Subjective Remarks The patient has been seen and examined this morning. Jude floyd denies patient. Daughter plans on picking patient up tomorrow to bring to his home and she will be there to care for him. He is happy to be going home with his daughter whos is a physical therapist. He feels each day he is getting better. He denies abdominal pain. He is tolerating his diet. Objective Vital Signs Date Time Temp Pulse Resp B/P Pulse Ox O2 Delivery O2 Flow Rate FiO2 06/13/17 08:00 97.4 70 18 153/84 99 06/13/17 04:00 97.5 74 18 139/71 97 06/13/17 00:00 98.3 79 18 151/72 94 06/12/17 20:00 98.2 79 18 160/77 97 06/12/17 16:00 98.5 80 17 155/76 97 06/12/17 12:00 97.7 79 17 140/71 99 I/O 06/12/17 06/12/17 06/12/17 06/13/17 06/13/17 06/13/17 07:00 15:00 23:00 07:00 15:00 23:00 Intake Total 380 ml 240 ml 240 ml 240 ml Output Total 1350 ml 700 ml 675 ml 475 ml Balance -970 ml -460 ml -435 ml -235 ml Intake Oral 380 ml 240 ml 240 ml 240 ml Output Urine Total 1350 ml 700 ml 675 ml 475 ml # Bowel Movements 2 0 Result Diagram: 06/11/17 1130 06/09/17 0451 Imaging Last Impressions Upper Extremity Ultrasound 06/10/17 0000 Signed Impressions: Service Date/Time: Saturday, June 10, 2017 16:58 - CONCLUSION: 1. Thrombophlebitis of the left forearm. Javy Parra MD Abdomen/Pelvis CT 06/06/17 0000 Signed Impressions: Service Date/Time: Tuesday, June 06, 2017 21:46 - CONCLUSION: 1. There is pneumobilia mild inflammation and fluid in the right upper quadrant in this patient who is status post cholecystectomy. There is no evidence for abscess. 2. Bilateral pleural effusions and basilar consolidation. 3. Right renal scarring. 4. Atherosclerosis. Td Sullivan MD Abdomen X-Ray 06/06/17 0000 Signed Impressions: Service Date/Time: Tuesday, June 06, 2017 09:48 - CONCLUSION: No acute abnormalities. Minimal left basilar density. Javy Parra MD GI Procedure 06/04/17 0000 Signed Impressions: Service Date/Time: Sunday, June 04, 2017 14:02 - CONCLUSION: ERCP as above. Trinidad Bermudez MD Chest X-Ray 06/03/17 0946 Signed Impressions: Service Date/Time: Saturday, June 03, 2017 09:50 - CONCLUSION: Mild left basilar airspace disease. Otherwise stable chest. Carlo Griggs MD Objective Remarks GENERAL: sitting up in bed, appears comfortable SKIN: Warm and dry. No rash. Small blisters noted on the right upper lip, significantly improved, almost completely clear HEENT: Normocephalic. Atraumatic. EOMI. NECK: Supple. Trachea midline. CARDIOVASCULAR: Regular rate and rhythm. No murmur appreciated. RESPIRATORY: No accessory muscle use. Breath sounds equal and clear bilaterally. GASTROINTESTINAL: Abdomen soft, non tender with palpation. MUSCULOSKELETAL: No obvious deformities. No LE edema. NEUROLOGICAL: Awake and alert. Able to move all extremities. No focal neurologic deficit appreciated. Normal speech. PSYCHIATRIC: Appropriate mood and affect; insight and judgment normal. A/P Problem List: (1) Transaminitis ICD Code: R74.0 (2) Sepsis ICD Code: A41.9 (3) HTN (hypertension) ICD Code: I10 (4) DM (diabetes mellitus) ICD Code: E11.9 (5) Cholangitis ICD Code: K83.0 Assessment and Plan 77 y/o male who was just discharged from the hospital and underwent ERCP presented with recurrent abdominal pain; - Sepsis secondary to cholangitis. - Blood cultures positive for E Coli. Repeat blood cultures negative 4 days.. - Currently on IV Zosyn started 06/03, patient is being followed by infectious disease - Being followed by GI: Choledocholithiasis with biliary obstruction and cholangitis, see imaging above. Status post cholecystectomy. Status post ERCP with large stone removal, and sphincterotomy, normal EGD. Continue soft diet, continue PPI. Leukocytosis improving. Transaminitis improving. - Dr. Agee to switch to Augmentin. 06/10 Diarrhea- - improved. - Likely antibiotic reaction/Zosyn use - C. difficile neg,on Lactinex by mouth TID - mag level wnl - Monitor - MARLA on chronic renal insufficiency -Improving. - Avoid nephrotoxic agents - Obtain a.m. BMP to monitor trend - hx of PUD - continue IV Protonix - Dyslipidemia - hold statin due to elevated LFT's - may resume in few weeks as outpatient -DVT prophylaxis - SCD's Left forearm swelling/redness/mass - soft tissue US consistent with thrombophlebitis - NSAIDs Discharge Planning Cleared for d/c home by ID & GI Denied by jude floyd. Home tomorrow with daughter. Emma Eubanks MD Jun 13, 2017 11:26
[2017-06-13 12:00] VITALS: BP 140/73; PULSE 79; RESP 17; TEMP 96.7; O2SAT 99
[2017-06-13] MEDS: PANTOPRAZOLE SODIUM 40 MG VIAL IV PUSH SCH (12:12)
[2017-06-13] MEDS: oxyCODONE/ACETAMINOPHEN 5 MG/325 MG TAB PO PRN (15:15)
[2017-06-13 16:00] VITALS: BP 130/82; PULSE 78; RESP 17; TEMP 98.2; O2SAT 98
[2017-06-13 20:00] VITALS: BP 132/71; PULSE 76; RESP 18; TEMP 97.4; O2SAT 96
[2017-06-14] VITALS: BP 132/73; PULSE 76; RESP 18; TEMP 97.1; O2SAT 96
[2017-06-14] MEDS: ZOLPIDEM TARTRATE 5 MG TAB PO PRN (00:07)
[2017-06-14 04:00] VITALS: BP 152/67; PULSE 80; RESP 18; TEMP 96.3; O2SAT 98
[2017-06-14] MEDS: AMOXICILLIN/CLAVULANATE K 500 MG TAB PO SCH ×2 (06:30→11:40)
[2017-06-14] MEDS: ALPRAZolam 0.5 MG TAB PO PRN (06:32)
[2017-06-14] MEDS: oxyCODONE/ACETAMINOPHEN 5 MG/325 MG TAB PO PRN ×2 (07:46→11:42)
[2017-06-14] MEDS: LACTOBACILLUS ACIDOPHILUS 1 GM PACKET PO SCH (07:48)
[2017-06-14 08:00] VITALS: BP 123/65; PULSE 88; RESP 16; TEMP 96.6; O2SAT 98
--- NOTE | 2017-06-14 11:09 | HHI.PR ---
Subjective Remarks sitting on the chair with no acute distress. no pain or fever. no new complaints. Objective Vitals Vital Signs Date Time Temp Pulse Resp B/P Pulse Ox O2 Delivery O2 Flow Rate FiO2 06/14/17 08:00 96.6 88 16 123/65 98 06/14/17 04:00 96.3 80 18 152/67 98 06/14/17 00:00 97.1 76 18 132/73 96 06/13/17 20:00 97.4 76 18 132/71 96 06/13/17 16:00 98.2 78 17 130/82 98 06/13/17 12:00 96.7 79 17 140/73 99 I/O 06/13/17 06/13/17 06/13/17 06/14/17 06/14/17 06/14/17 07:00 15:00 23:00 07:00 15:00 23:00 Intake Total 240 ml 240 ml 240 ml 120 ml Output Total 475 ml 800 ml 675 ml 500 ml Balance -235 ml -560 ml -435 ml -380 ml Intake Oral 240 ml 240 ml 240 ml 120 ml Output Urine Total 475 ml 800 ml 675 ml 500 ml # Bowel Movements 0 Result Diagram: 06/11/17 1130 Imaging Last Impressions Upper Extremity Ultrasound 06/10/17 0000 Signed Impressions: Service Date/Time: Saturday, June 10, 2017 16:58 - CONCLUSION: 1. Thrombophlebitis of the left forearm. Javy Parra MD Abdomen/Pelvis CT 06/06/17 0000 Signed Impressions: Service Date/Time: Tuesday, June 06, 2017 21:46 - CONCLUSION: 1. There is pneumobilia mild inflammation and fluid in the right upper quadrant in this patient who is status post cholecystectomy. There is no evidence for abscess. 2. Bilateral pleural effusions and basilar consolidation. 3. Right renal scarring. 4. Atherosclerosis. Td Sullivan MD Abdomen X-Ray 06/06/17 0000 Signed Impressions: Service Date/Time: Tuesday, June 06, 2017 09:48 - CONCLUSION: No acute abnormalities. Minimal left basilar density. Javy Parra MD GI Procedure 06/04/17 0000 Signed Impressions: Service Date/Time: Sunday, June 04, 2017 14:02 - CONCLUSION: ERCP as above. Trniidad Bermudez MD Chest X-Ray 06/03/17 0946 Signed Impressions: Service Date/Time: Saturday, June 03, 2017 09:50 - CONCLUSION: Mild left basilar airspace disease. Otherwise stable chest. Carlo Griggs MD Objective Remarks GENERAL: This is a well-nourished, well-developed patient, in no apparent distress. CARDIOVASCULAR: Regular rate and regular rhythm without murmurs, gallops, or rubs. RESPIRATORY: Clear to auscultation. Breath sounds equal bilaterally. No wheezes , rales, or rhonchi. GASTROINTESTINAL: Abdomen soft, non-tender, nondistended. Normal, active bowel sounds MUSCULOSKELETAL: Extremities without clubbing, cyanosis, or edema. NEURO: Alert & Oriented x4 to person, place, time, situation. Moves all ext x4 Medications and IVs Current Medications Acetaminophen 650 mg 650 mg ONCE ONCE RECTAL Last administered on 06/03/17 10 :08; Start 06/03/17 at 10:00; Stop 06/03/17 at 10:01; Status DC Sodium Chloride 1,000 ml @ 999 mls/hr BOLUS ONCE IV Last administered on 06/03 10:08; Start 06/03/17 at 10:00; Stop 06/03/17 at 11:00; Status DC Piperacillin Sod/ Tazobactam Sod 50 ml @ 100 mls/hr ONCE ONCE IV Last administered on 06/03/17 10:58; Start 06/03/17 at 11:00; Stop 06/03/17 at 11:29 ; Status DC Vancomycin HCl 1350 mg/Sodium Chloride 513.5 ml @ 250 mls/hr ONCE ONCE IV Last administered on 06/03/17 12:06; Start 06/03/17 at 11:00; Stop 06/03/17 at 13:03; Status DC Sodium Chloride (NS 1000 ml Inj) 1,000 ml @ 999 mls/hr BOLUS ONCE IV Last administered on 06/03/17 10:58; Start 06/03/17 at 11:00; Stop 06/03/17 at 12:00 ; Status DC Ondansetron HCl (Zofran Inj) 4 mg ONCE ONCE IV PUSH Last administered on 11:14; Start 06/03/17 at 11:00; Stop 06/03/17 at 11:01; Status DC Potassium Chloride (KCl) 30 meq ONCE ONCE PO Last administered on 06/03/17 12 :37; Start 06/03/17 at 11:30; Stop 06/03/17 at 11:31; Status DC Ondansetron HCl (Zofran Inj) 4 mg Q8HR PRN IV PUSH NAUSEA; Start 06/03/17 at 14 :00 Acetaminophen (Tylenol) 325 mg Q6HR NEB PRN PO FEVER Last administered on 20:22; Start 06/03/17 at 14:00 Hydromorphone HCl 0.5 mg 0.5 mg Q4H PRN IV PUSH BREAKTHROUGH PAIN Last administered on 06/06/17 11:36; Start 06/03/17 at 14:00 Sodium Chloride 1,000 ml @ 100 mls/hr Q10H IV Last administered on 06/10/17 05:29; Start 06/03/17 at 14:00; Stop 06/10/17 at 10:46; Status DC Piperacillin Sod/ Tazobactam Sod (Zosyn 2.25 Gm Premix) 50 ml @ 100 mls/hr Q6H IV Last administered on 06/10/17 05:29; Start 06/03/17 at 18:00; Stop at 10:53; Status DC Pantoprazole Sodium (Protonix Inj) 40 mg Q24H IV PUSH Last administered on 06/13 12:12; Start 06/03/17 at 14:00 Alprazolam 0.5 mg 0.5 mg Q6H PRN PO ANXIETY Last administered on 06/14/17 06: 32; Start 06/03/17 at 14:00 Sodium Chloride (NS 500 ml Inj) 500 ml @ 0 mls/hr BOLUS ONCE IV Last administered on 06/03/17 15:57; Start 06/03/17 at 16:00; Stop 06/03/17 at 16:01 ; Status DC Zolpidem Tartrate 5 mg 5 mg HS PRN PO SLEEP Last administered on 06/14/17 00: 07; Start 06/04/17 at 00:30 Lactated Ringer's (Lr 1000 ml Inj) 1,000 ml @ 30 mls/hr Q24H PRN IV SEE LABEL COMMENTS; Start 06/04/17 at 05:30; Stop 06/07/17 at 05:29; Status DC Fentanyl Citrate (fentaNYL INJ) 100 mcg STK-MED ONCE .ROUTE ; Start 06/04/17 at 13:35; Stop 06/04/17 at 13:36; Status DC Miscellaneous Information ALL NURSING DEPARTME... UNSCH PRN .XX SEE LABEL COMMENTS; Start 06/04/17 at 15:15; Stop 06/05/17 at 15:14; Status DC Iohexol (Omnipaque 300 Inj) 50 ml STK-MED ONCE .XX Last administered on 14:00; Start 06/04/17 at 14:00; Stop 06/04/17 at 15:36; Status DC Propofol (Diprivan 200 Mg/20 ml Inj) 200 mg STK-MED ONCE IV ; Start 06/04/17 at 15:42; Stop 06/04/17 at 15:43; Status DC Lactobacillus Acidophilus (Lactinex Pkt) 1 gm TID PO Last administered on 07:48; Start 06/05/17 at 18:00 Albuterol/ Ipratropium (Duoneb Neb) 1 ampule Q6HR NEB PRN NEB SHORTNESS OF BREATH Last administered on 06/06/17 13:05; Start 06/06/17 at 12:30 Oxycodone/ Acetaminophen (Percocet 5-325 Mg) 1 tab Q4H PRN PO PAIN SCALE 3 TO 5 Last administered on 06/14/17 07:46; Start 06/06/17 at 18:00 Oxycodone/ Acetaminophen (Percocet 10-325 Mg) 1 tab Q6H PRN PO PAIN SCALE 6 TO 10; Start 06/06/17 at 18:00 Diatrizoate Meglum/ Diatrizoate Sod ( Gastroview Liq) 18 ml ONCE ONCE PO Last administered on 06/06/17 18:20; Start 06/06/17 at 18:15; Stop 06/06/17 at 18:16; Status DC Iodixanol (VISIPAQUE 320 INJ (Rad CT)) 50 ml STK-MED ONCE IV Last administered on 06/06/17 22:02; Start 06/06/17 at 22:02; Stop 06/06/17 at 22:03; Status DC Ephedrine Sulfate (ePHEDrine/NS 25 MG/5 ML SYR) 25 mg STK-MED ONCE IV ; Start at 12:00; Stop 06/07/17 at 09:15; Status DC Ondansetron HCl 4 mg 4 mg STK-MED ONCE IV PUSH ; Start 06/04/17 at 12:00; Stop 06/07/17 at 09:15; Status DC Potassium Chloride (KCl 20 Meq Premix Inj) 100 ml @ 50 mls/hr Q2H IV Last administered on 06/07/17 12:59; Start 06/07/17 at 10:00; Stop 06/07/17 at 13:59 ; Status DC Amoxicillin/ Clavulanate Potassium (Augmentin) 500 mg Q8HR PO Last administered on 06/14/17 06:30; Start 06/10/17 at 14:00; Stop 06/15/17 at 13:59 Ibuprofen (Motrin) 400 mg ONCE ONCE PO Last administered on 06/11/17 10:44; Start 06/11/17 at 09:30; Stop 06/11/17 at 09:32; Status DC A/P Assessment and Plan A/P - Sepsis secondary to cholangitis. - Blood cultures positive for E Coli. Repeat blood cultures negative . - switched to po Augmentin. - Being followed by GI: Choledocholithiasis with biliary obstruction and cholangitis, see imaging above. Status post cholecystectomy. Status post ERCP with large stone removal, and sphincterotomy, normal EGD. Continue soft diet, continue PPI. Leukocytosis improving. Transaminitis improving. - Diarrhea- - improved. - Likely antibiotic reaction/Zosyn use - C. difficile neg,on Lactinex by mouth TID - mag level wnl - Monitor - MARLA on chronic renal insufficiency -Improving. - Avoid nephrotoxic agents - Obtain a.m. BMP to monitor trend - hx of PUD -on Protonix - Dyslipidemia - hold statin due to elevated LFT's - may resume in few weeks as outpatient -DVT prophylaxis - SCD's Left forearm swelling/redness/mass - soft tissue US consistent with thrombophlebitis - NSAIDs Discharge Planning dc home with f/u with pcp and GI. see med list. d/w the patient and daughter. Nancy Corona MD Jun 14, 2017 11:09
== END 2017-06-14 12:07 | DRG 872 ==
LOC: NEPE 09:35 → NEDA 13:32 → N07A 16:55
PROVIDERS: ADMIT Internal Medicine; ATTEND Internal Medicine
PROC: 0FC98ZZ Extirpation of Matter from Common Bile Duct, Via Natural or Artificial Opening Endoscopic (ICD-10-PCS; principal; 2017-06-04 13:30)
DX: A41.51 Sepsis due to Escherichia coli [E. coli] (principal); K80.31 Calculus of bile duct with cholangitis, unspecified, with obstruction; N17.9 Acute kidney failure, unspecified; E87.2 Acidosis; K52.1 Toxic gastroenteritis and colitis; E11.22 Type 2 diabetes mellitus with diabetic chronic kidney disease; I80.8 Phlebitis and thrombophlebitis of other sites; D64.9 Anemia, unspecified; K31.4 Gastric diverticulum; M19.90 Unspecified osteoarthritis, unspecified site; E78.00 Pure hypercholesterolemia, unspecified; I25.2 Old myocardial infarction; K21.9 Gastro-esophageal reflux disease without esophagitis; F41.9 Anxiety disorder, unspecified; I12.9 Hypertensive chronic kidney disease with stage 1 through stage 4 chronic kidney disease, or unspecified chronic kidney disease; Z85.46 Personal history of malignant neoplasm of prostate; Z87.11 Personal history of peptic ulcer disease; N18.9 Chronic kidney disease, unspecified; E78.5 Hyperlipidemia, unspecified; Z96.643 Presence of artificial hip joint, bilateral; Z87.891 Personal history of nicotine dependence; T36.0X5A Adverse effect of penicillins, initial encounter; Y92.239 Unspecified place in hospital as the place of occurrence of the external cause
CPT/HCPCS: 71010; 74020; 74176; 74177; 74330; 76000; 76882; 76937; 80053; 80076; 81001; 82248; 82550; 82552; 82948; 83605; 83690; 83735; 84484; 85007; 85025; 85027; 85610; 85730; 87040; 87077; 87186; 87205; 87493; 87804; 88305; 93005; 94150; 94664; 96361; 96365; 96367; 96374; C1769; C9113; G0378; J1170; J2405; J2543; J3010; J3370; J3480; J7030; J7040; Q9963; Q9967

== ENCOUNTER → 2017-08-30 | Outpatient (CLI) | payer OTHER ==
[~2017-08-30] VITALS: Ht 182.9 cm; Wt 85.8 kg
[~2017-08-30] MED LIST changes: +ASPI-110 PO; +ATOR40TA16 PO; +CHLORHEXIDINE GLUCONATE 2 % 1 PACK (2 CLOTHS) TOPICAL PRN; +CRANCAP2 PO; +HYDR-3583 PO; +INSULIN HUMAN REGULAR 1,000 UNITS/10 ML VIAL SQ PRN; +LACTATED RINGER'S 1000 ML IV PRN; +LISI2.5T3 PO; +METOPROLOL TARTRATE 25 MG TAB PO PRN; +MIDAZOLAM HCL 2 MG/2 ML VIAL IV ONE; -PANT40TA3 PO; +PHENYLEPH/NS 1000 MCG/10 ML SYR IV ONE; +POVIDONE IODINE 5% (ANTISEPSIS KIT) 4 APPLICATIONS EACH NARE PRN; +PROPOFOL 200 MG/20 ML AMP ONE; +RANI150C PO; -SIMV40TA PO; +SODIUM CHLORID 0.9% 500 ML IV PRN; -SUCR1S PO; +VITA1000 PO; +VITA10004 PO; +VITA200C3 PO; +ZINC50TA2 PO
--- NOTE | 2017-08-30 13:20 | GIPROC ---
[facility] [address] [facility]. [facility], [address] ERCP PROCEDURE REPORT EXAM DATE: 08/30/2017 PATIENT NAME: Marya Naylor MR #: [id number] BIRTHDATE: 1940 ATTENDING: [place] Diamond MD ORDER #: [id number] CATHETER FINISHER AND INSPECTOR: Abby Horn and Anastasia Garrett STATUS: outpatient INDICATIONS: The patient is a 77 yr old male here for an ERCP due to established bile duct stone(s) PROCEDURE PERFORMED: ERCP with balloon dilation ERCP with sphincterotomy/papillotomy MEDICATIONS: None and Per Anesthesia. CONSENT: The patient understands the risks and benefits of the procedure and understands that these risks include, but are not limited to: sedation, allergic reaction, infection, perforation and/or bleeding. Alternative means of evaluation and treatment include, among others: physical exam, x-rays, and/or surgical intervention. The patient elects to proceed with this endoscopic procedure. medical equipment was checked for proper function. Hand hygiene and appropriate measures for infection prevention was taken. After the risks, benefits and alternatives of the procedure were thoroughly explained, Informed was verified, confirmed and timeout was successfully executed by the treatment team. With the patient in left semi-prone position, medications were administered intravenously.The Pentax [id number] was passed from the mouth into the esophagus and further advanced from the esophagus into the stomach. From stomach scope was directed to the second portion of the duodenum. Major papilla was aligned with the duodenoscope. The scope position was confirmed fluoroscopically. Rest of the findings/therapeutics are given below. The scope was then completely withdrawn from the patient and the procedure completed. The pulse, BP, and O2 saturation were monitored and documented by the physician and the nursing staff throughout the entire procedure. The patient was cared for as planned according to standard protocol. The patient was then discharged to recovery in stable condition and with appropriate post procedure care. 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 There was a dilation of the CBD up to 14mm. No clear filling defects noted. Dilated cbd with distal tapering. Baloon sweeps x 2 with 15mm balloon. Ampulla dilated maxpas biliary baloon to 8 mm. ADVERSE EVENT: There were no complications. IMPRESSIONS: 1. Large periampullary diverticulum 2. No clear filling defects noted. Dilated cbd with distal tapering. Baloon sweeps x 2 with 15mm balloon. Ampulla dilated maxpas biliary baloon to 8 mm RECOMMENDATIONS: 1. Liver enzymes 2. Follow-up: GI clinic 2 week(s) REPEAT EXAM: Return as needed for ERCP South Diamond MD eSigned: South Diamond MD 08/30/2017 1:20 PM cc: Nancy Callejas M.D.
[2017-08-30 13:55] VITALS: BP 121/77; PULSE 72; RESP 20; O2SAT 100
[2017-08-30 14:02] VITALS: TEMP 97.1
--- NOTE | 2017-08-30 17:12 | RADRPT ---
EXAM DATE/TIME: 08/30/2017 12:59 [facility] COMPARISON: GI LAB ERCP, June 04, 2017, 14:02. INDICATIONS : Obstruction FLUORO TIME: .33 minutes IMAGE COUNT: 3 CONTRAST: Instilled by Ordering Physician MEDICAL HISTORY : Cholelithiasis. SURGICAL HISTORY : Cholecystectomy. ENCOUNTER: Initial ACUITY: 1 day PAIN SCORE: Non-responsive. LOCATION: Abdomen FINDINGS: An ERCP was performed by the ordering physician. The images demonstrate a dilated common bile duct with a balloon extraction. CONCLUSION: ERCP as above. Carlitos Springer MD on August 30, 2017 at 17:10 Board Certified Radiologist. This report was verified electronically.
== END ==
LOC: HEND 08:34
PROVIDERS: ATTEND Internal Medicine Gastroenterology
DX: K83.8 Other specified diseases of biliary tract (principal); K80.50 Calculus of bile duct without cholangitis or cholecystitis without obstruction
CPT/HCPCS: 00740; 43277; 74330; C1769; J2250; J2370; J3010

== ENCOUNTER 2017-10-20 07:29 | Observation (INO) | payer OTHER ==
[2017-10-20] VITALS (9 sets, daily range): BP systolic 126–176; BP diastolic 62–85; PULSE 75–91; RESP 16–18; TEMP 97.4–98.7; O2SAT 96–99
[~2017-10-20] VITALS: Ht 182.9 cm; Wt 87.0 kg
[~2017-10-20 07:29] MED LIST changes: -ASPI-110 PO; +ASPI1TAB57 PO; -CHLORHEXIDINE GLUCONATE 2 % 1 PACK (2 CLOTHS) TOPICAL PRN; -INSULIN HUMAN REGULAR 1,000 UNITS/10 ML VIAL SQ PRN; -LACTATED RINGER'S 1000 ML IV PRN; -METOPROLOL TARTRATE 25 MG TAB PO PRN; -MIDAZOLAM HCL 2 MG/2 ML VIAL IV ONE; -PHENYLEPH/NS 1000 MCG/10 ML SYR IV ONE; -POVIDONE IODINE 5% (ANTISEPSIS KIT) 4 APPLICATIONS EACH NARE PRN; -PROPOFOL 200 MG/20 ML AMP ONE; -SODIUM CHLORID 0.9% 500 ML IV PRN
[2017-10-20] MEDS ORDERED: SODIUM CHLOR 0.9% 1000 ML INJ 1,000 ML IV SCH (07:44)
--- NOTE | 2017-10-20 07:48 | PD ---
HPI Chief Complaint: Abdominal Pain Time Seen by Provider: 07:42 Travel History International Travel<30 days: No Contact w/Intl Traveler<30days: No Traveled to known affect area: No History of Present Illness HPI c/o 3 days worth of sharp diffuse abd pain, nonrad, 06/29, no regular bm in last 2 days...today a very small bm despite 4 dulcolax used throughout day. patient denies cp/maloney/n/v/back pain...................no alleviating/aggravating factors chart and rn notes reviewed pcp pmhx: dm, mi, chol, htn, ckd pshx:gb, hip PFSH Past Medical History Arthritis: Yes Blood Disorders: No Anxiety: Yes Cancer: Yes (PROSTATE) Cardiovascular Problems: No High Cholesterol: Yes Chemotherapy: No Diabetes: Yes Diminished Hearing: No Endocrine: No GERD: Yes Genitourinary: No Hepatitis: No Hiatal Hernia: No Immune Disorder: No Musculoskeletal: Yes (OA) Neurologic: No Psychiatric: Yes (ANXIETY) Reproductive: No Respiratory: Yes Myocardial Infarction: Yes Radiation Therapy: Yes Thyroid Disease: No Past Surgical History Abdominal Surgery: Yes (LEONEL) AICD: No Cardiac Surgery: No Cholecystectomy: Yes Ear Surgery: No Endocrine Surgery: No Eye Surgery: Yes (CATARACTS) Genitourinary Surgery: No Joint Replacement: Yes (BILATERAL HIPS) Oral Surgery: No Pacemaker: No Thoracic Surgery: No Other Surgery: Yes (VEIN STRIPPING) Social History Alcohol Use: No Tobacco Use: No Substance Use: No Allergies-Medications (Allergen,Severity, Reaction): Coded Allergies: latex (Verified Allergy, Mild, Itching, 10/20/17) MRI PRECAUTION (Verified Adverse Reaction, Severe, STAPES IMPLANT, 10/20/17 ) PT STATES BILATERAL STAPES IMPLANTS/JLA 05/28/17 Reported Meds & Prescriptions Reported Meds & Active Scripts Active Reported Aspirin 81 (Aspirin) 81 Mg Tabdr 81 Mg PO DAILY Hydrocodone-Acetaminophen 10-325 mg Tab 1 Tab PO Q4H PRN Ranitidine (Ranitidine HCl) 150 Mg Cap 150 Mg PO BID Lisinopril 2.5 Mg Tab 2.5 Mg PO DAILY Atorvastatin (Atorvastatin Calcium) 40 Mg Tab 40 Mg PO HS Alprazolam 0.5 Mg Tab 0.5 Mg PO Q6H PRN Review of Systems Except as stated in HPI: all other systems reviewed are Neg General / Constitutional: No: Fever Eyes: No: Visual changes HENT: No: Headaches Cardiovascular: No: Chest Pain or Discomfort Respiratory: No: Shortness of Breath Gastrointestinal: Positive: Nausea, Abdominal Pain Genitourinary: No: Dysuria Musculoskeletal: No: Pain Skin: No Rash Neurologic: No: Weakness Psychiatric: No: Depression Endocrine: No: Polydipsia Hematologic/Lymphatic: No: Easy Bruising Physical Exam Narrative GENERAL: SKIN: Warm and dry. HEAD: Atraumatic. Normocephalic. EYES: Pupils equal and round. No scleral icterus. No injection or drainage. ENT: No nasal bleeding or discharge. Mucous membranes pink and moist. NECK: Trachea midline. No JVD. CARDIOVASCULAR: Regular rate and rhythm. RESPIRATORY: No accessory muscle use. Clear to auscultation. Breath sounds equal bilaterally. GASTROINTESTINAL: Abdomen soft, non-tender, nondistended. MUSCULOSKELETAL: Extremities without clubbing, cyanosis, or edema. No obvious deformities. NEUROLOGICAL: Awake and alert. No obvious cranial nerve deficits. Motor grossly within normal limits. Five out of 5 muscle strength in the arms and legs. Normal speech. PSYCHIATRIC: Appropriate mood and affect; insight and judgment normal. Data Data Last Documented VS Vital Signs Date Time Temp Pulse Resp B/P (MAP) Pulse Ox O2 Delivery O2 Flow Rate FiO2 10/20/17 08:00 17 98 Room Air 10/20/17 07:31 98.7 75 Orders Orders Complete Blood Count With Diff (10/20/17 07:44) Comprehensive Metabolic Panel (10/20/17 07:44) Lipase (10/20/17 07:44) Prothrombin Time / Inr (Pt) (10/20/17 07:44) Act Partial Throm Time (Ptt) (10/20/17 07:44) Urinalysis - C+S If Indicated (10/20/17 07:44) Ct Abd/Pel W/O Iv Contrast (10/20/17 07:44) Iv Access Insert/Monitor (10/20/17 07:44) Ecg Monitoring (10/20/17 07:44) Oximetry (10/20/17 07:44) NPO (10/20/17 07:44) Sodium Chlor 0.9% 1000 Ml Inj (Ns 1000 M (10/20/17 07:44) Electrocardiogram (10/20/17 07:44) Labs Laboratory Tests Test 10/20/17 08:00 White Blood Count 8.3 TH/MM3 Red Blood Count 5.26 MIL/MM3 Hemoglobin 14.3 GM/DL Hematocrit 43.8 % Mean Corpuscular Volume 83.2 FL Mean Corpuscular Hemoglobin 27.3 PG Mean Corpuscular Hemoglobin Concent 32.8 % Red Cell Distribution Width 15.5 % Platelet Count 157 TH/MM3 Mean Platelet Volume 7.2 FL Neutrophils (%) (Auto) 69.0 % Lymphocytes (%) (Auto) 21.4 % Monocytes (%) (Auto) 8.3 % Eosinophils (%) (Auto) 1.0 % Basophils (%) (Auto) 0.3 % Neutrophils # (Auto) 5.7 TH/MM3 Lymphocytes # (Auto) 1.8 TH/MM3 Monocytes # (Auto) 0.7 TH/MM3 Eosinophils # (Auto) 0.1 TH/MM3 Basophils # (Auto) 0.0 TH/MM3 CBC Comment DIFF FINAL Differential Comment MDM Medical Decision Making Medical Screen Exam Complete: Yes Emergency Medical Condition: Yes Medical Record Reviewed: Yes Interpretation(s) nsr 71, normal intervals, no stemi pattern Differential Diagnosis pancreatitis v sbo v ileus Chase Hernandez MD Oct 20, 2017 07:48
[2017-10-20 08:11] LABS: AUTOMATED NEUTROPHIL # 5.7 TH/MM3 (1.8-7.7); BASOPHIL % 0.3 % (0.0-2.0); EOSINOPHIL # 0.1 TH/MM3 (0-0.4); HEMATOCRIT 43.8 % (39.0-51.0); HEMO FLAGS DIFF FINAL; LYMPH % 21.4 % (9.0-44.0); LYMPHOCYTE # 1.8 TH/MM3 (1.0-4.8); MEAN CELL VOLUME 83.2 FL (80.0-100.0); MEAN CORPUSCULAR HEMOGLOBIN 27.3 PG (27.0-34.0); MEAN CORPUSCULAR HGB CONC 32.8 % (32.0-36.0); MONO % 8.3 % (0.0-8.0); PLATELET COUNT 157 TH/MM3 (150-450); RED BLOOD COUNT 5.26 MIL/MM3 (4.50-5.90); RED CELL DISTRIBUTION WIDTH 15.5 % (11.6-17.2); WHITE BLOOD COUNT 8.3 TH/MM3 (4.0-11.0)
[2017-10-20 08:19] LABS: APTT (PATIENT) 26.3 SEC (24.3-30.1); INTERNATIONAL NORMALIZED RATIO 1.1 RATIO; PROTHROMBIN TIME - PATIENT 10.8 SEC (9.8-11.6)
[2017-10-20 08:28] LABS: ALT (GPT) 31 U/L (12-78); ANION GAP 6 MEQ/L (5-15); AST (GOT) 27 U/L (15-37); BLOOD UREA NITROGEN 15 MG/DL (7-18); CHLORIDE 107 MEQ/L (98-107); GLOMERULAR FILTRATION RATE 39 ML/MIN (>89); POTASSIUM 4.8 MEQ/L (3.5-5.1); SODIUM (NA) 139 MEQ/L (136-145)
[2017-10-20 08:30] LABS: ALKALINE PHOSPHATASE 70 U/L (45-117); TOTAL BILIRUBIN ADULT 0.5 MG/DL (0.2-1.0)
[2017-10-20] MEDS ORDERED: HYDROmorphone HCL PF 1 MG/ML VIAL IV PUSH ONE (09:30)
--- NOTE | 2017-10-20 09:44 | RADRPT ---
EXAM DATE/TIME: 10/20/2017 08:22 [facility] COMPARISON: CT ABDOMEN & PELVIS W CONTRAST, June 06, 2017, 21:46. CT ABDOMEN & PELVIS W/O CONTRAST, June 03 7, 11:22. INDICATIONS : Abdominal pain, nausea and vomiting. ORAL CONTRAST: No oral contrast ingested. RADIATION DOSE: 11.93 CTDIvol (mGy) MEDICAL HISTORY : Carcinoma, prostate. Renal disease, end stage. Hypertension. SURGICAL HISTORY : Cholecystectomy. ENCOUNTER: Initial ACUITY: 3 days PAIN SCALE: 5/10 LOCATION: Bilateral mid-abdomen. TECHNIQUE: Volumetric scanning of the abdomen and pelvis was performed. Using automated exposure control and ad justment of the mA and/or kV according to patient size, radiation dose was kept as low as reasonably achievable to obtain optimal diagnostic quality images. DICOM format image data is available electro nically for review and comparison. FINDINGS: LOWER LUNGS: Mild bronchiectasis involving the right lung base. No infiltrates or effusions. Tiny hiatal hernia. LIVER: Homogeneous density without lesion. There is no dilation of the biliary tree. Pneumobilia again note d. Gallbladder surgically absent. SPLEEN: Normal size without lesion. PANCREAS: Within normal limits. KIDNEYS: Normal in size and shape. There is no mass, stone, or hydronephrosis. ADRENAL GLANDS: Within normal limits. VASCULAR: There is no aortic aneurysm. BOWEL/MESENTERY: There is mild stranding of the mesentery within the left lateral abdomen. No fluid collections. No ad enopathy. Pelvis right ureter are unremarkable on this unopacified study. No free air or free fluid. ABDOMINAL WALL: Within normal limits. RETROPERITONEUM: There is no lymphadenopathy. BLADDER: No wall thickening or mass. REPRODUCTIVE: Within normal limits. INGUINAL: There is no lymphadenopathy or hernia. MUSCULOSKELETAL: There is a degenerative lumbar spine. Bilateral hip implants noted. CONCLUSION: 1. Mild stranding of the mesentery within the left lateral abdomen. This suggests a mild mesenteritis . Otherwise, no acute abnormality. 2. Pneumobilia which is unchanged and suggests prior sphincterotomy. No dilatation of the biliary josé eApril Villalpando Jr., MD on October 20, 2017 at 9:32 Board Certified Radiologist. This report was verified electronically.
[2017-10-20] MEDS ORDERED: ONDANSETRON HCL 4 MG/2 ML VIAL IV PUSH PRN (11:15)
[2017-10-20] MEDS ORDERED: SODIUM CHLORIDE 0.9% FLUSH 10 ML FLUSH IV FLUSH PRN (11:15)
[2017-10-20] MEDS ORDERED: DOCUSATE SODIUM 50 MG/SENNA 8.6 MG TAB PO PRN (11:15)
[2017-10-20] MEDS ORDERED: ACETAMINOPHEN 325 MG TAB PO PRN (11:15)
[2017-10-20] MEDS ORDERED: PILL SPLITTER OTHER PRN (11:30)
[2017-10-20] MEDS: LACTATED RINGER'S 1000 ML INJ 1,000 ML IV SCH ×2 (11:36→22:04)
[2017-10-20] MEDS: ALPRAZolam 0.5 MG TAB PO PRN ×2 (12:46→20:30)
[2017-10-20] MEDS: KETOROLAC TROMETHAMINE 30 MG/ML (IVP) VIAL IVP PRN (13:37)
--- NOTE | 2017-10-20 13:54 | HHI.HP ---
[facility] Nancy Callejas MD Admission Diagnosis ACUTE PANCREATITIS Diagnoses: (1) Abdominal pain (2) Pancreatitis, acute Chief Complaint: Abdominal pain Travel History International Travel<30 Days: No Contact w/Intl Traveler <30 Da: No Traveled to Known Affected Are: No History of Present Illness 77 year-old man with a history of diabetes type 2 ,hypertension and multiple admissions in the past for abdominal complaints presented to the ED for evaluation of 3 day history of abdominal pain rated 8/10 in intensity associated with emesis and nausea with radiation to his back. He denies any febrile episode. Denies any bowel movement 2 days. Abnormal Lab include lipase 446. He currently denies any GI Bleed, shortness of breath Review of Systems Except as stated in HPI: all other systems reviewed are Neg Past Family Social History Past Medical History 1. arthritis. 2. Anxiety. 3. Hypercholesteremia. 4. Diabetes. 5. Gastroesophageal reflux disease. 6. coronary artery disease. 7. history of prostate cancer. Past Surgical History left total hip arthroplasty Open Cholecystectomy vein stripping Reported Medications Aspirin 81 (Aspirin) 81 Mg Tabdr 81 Mg PO DAILY Hydrocodone-Acetaminophen 10-325 mg Tab 1 Tab PO Q4H PRN Ranitidine (Ranitidine HCl) 150 Mg Cap 150 Mg PO BID Lisinopril 2.5 Mg Tab 2.5 Mg PO DAILY Atorvastatin (Atorvastatin Calcium) 40 Mg Tab 40 Mg PO HS Alprazolam 0.5 Mg Tab 0.5 Mg PO Q6H PRN Allergies: Coded Allergies: latex (Verified Allergy, Mild, Itching, 10/20/17) MRI PRECAUTION (Verified Adverse Reaction, Severe, STAPES IMPLANT, 10/20/17 ) PT STATES BILATERAL STAPES IMPLANTS/JLA 05/28/17 Family History Mother had diabetes type 2 Social History Alcohol Use: No Tobacco Use: No Substance Use: No Physical Exam Vital Signs Vital Signs Date Time Temp Pulse Resp B/P (MAP) Pulse Ox O2 Delivery O2 Flow Rate FiO2 10/20/17 12:37 97.9 78 18 147/76 (99) 98 10/20/17 11:44 97.8 76 16 138/77 (97) 99 10/20/17 11:04 97.8 89 16 140/76 (97) 99 Room Air 10/20/17 10:00 16 10/20/17 08:58 97.9 84 16 129/77 (94) 98 Room Air 10/20/17 08:00 17 98 Room Air 10/20/17 07:52 16 10/20/17 07:31 98.7 75 16 173/83 (113) 99 Room Air Physical Exam GENERAL: This is a well-nourished, well-developed patient, in no apparent distress. SKIN: No rashes, ecchymoses or lesions. Cool and dry. HEAD: Atraumatic. Normocephalic. No temporal or scalp tenderness. EYES: Pupils equal round and reactive. Extraocular motions intact. No scleral icterus. No injection or drainage. ENT: Nose without bleeding, purulent drainage or septal hematoma. Throat without erythema, tonsillar hypertrophy or exudate. Uvula midline. Airway patent. NECK: Trachea midline. No JVD or lymphadenopathy. Supple, nontender, no meningeal signs. CARDIOVASCULAR: Regular rate and rhythm without murmurs, gallops, or rubs. RESPIRATORY: Clear to auscultation. Breath sounds equal bilaterally. No wheezes , rales, or rhonchi. GASTROINTESTINAL: Abdomen soft, TTP midepigastric, nondistended. No hepato- splenomegaly, or palpable masses. No guarding. MUSCULOSKELETAL: Extremities without clubbing, cyanosis, or edema. No joint tenderness, effusion, or edema noted. No calf tenderness. Negative Homans sign bilaterally. NEUROLOGICAL: Awake and alert. Cranial nerves II through XII intact. Motor and sensory grossly within normal limits. Five out of 5 muscle strength in all muscle groups. Normal speech. Laboratory Laboratory Tests Test 10/20/17 08:00 White Blood Count 8.3 Red Blood Count 5.26 Hemoglobin 14.3 Hematocrit 43.8 Mean Corpuscular Volume 83.2 Mean Corpuscular Hemoglobin 27.3 Mean Corpuscular Hemoglobin Concent 32.8 Red Cell Distribution Width 15.5 Platelet Count 157 Mean Platelet Volume 7.2 Neutrophils (%) (Auto) 69.0 Lymphocytes (%) (Auto) 21.4 Monocytes (%) (Auto) 8.3 Eosinophils (%) (Auto) 1.0 Basophils (%) (Auto) 0.3 Neutrophils # (Auto) 5.7 Lymphocytes # (Auto) 1.8 Monocytes # (Auto) 0.7 Eosinophils # (Auto) 0.1 Basophils # (Auto) 0.0 CBC Comment DIFF FINAL Differential Comment Prothrombin Time 10.8 Prothromb Time International Ratio 1.1 Activated Partial Thromboplast Time 26.3 Blood Urea Nitrogen 15 Creatinine 1.72 Random Glucose 140 Total Protein 8.5 Albumin 3.8 Calcium Level 10.1 Alkaline Phosphatase 70 Aspartate Amino Transf (AST/SGOT) 27 Alanine Aminotransferase (ALT/SGPT) 31 Total Bilirubin 0.5 Sodium Level 139 Potassium Level 4.8 Chloride Level 107 Carbon Dioxide Level 26.0 Anion Gap 6 Estimat Glomerular Filtration Rate 39 Lipase 446 Result Diagram: 10/20/1779910/20/17 08 Imaging Last Impressions Abdomen/Pelvis CT 10/20/17 0744 Signed Impressions: Service Date/Time: Friday, October 20, 2017 08:22 - CONCLUSION: 1. Mild stranding of the mesentery within the left lateral abdomen. This suggests a mild mesenteritis. Otherwise, no acute abnormality. 2. Pneumobilia which is unchanged and suggests prior sphincterotomy. No dilatation of the biliary tree. Aakash Villalpando Jr., MD Caprini VTE Risk Assessment Caprini VTE Risk Assessment: Mod/High Risk (score >= 2) Caprini Risk Assessment Model Point Value = 1 Point Value = 2 Point Value = 3 Point Value = 5 Age 41-60 Minor surgery BMI > 25 kg/m2 Swollen legs Varicose veins or History of unexplained or recurrent spontaneous Oral contraceptives or hormone replacement Sepsis (< 1 month) Serious lung disease, including pneumonia (< 1 month) Abnormal pulmonary function Acute myocardial infarction Congestive heart failure (< 1 month) History of inflammatory bowel disease Medical patient at bed rest Age 61-74 Arthroscopic surgery Major open surgery (> 45 min) Laparoscopic surgery (> 45 min) Malignancy Confined to bed (> 72 hours) Immobilizing plaster cast Central venous access Age >= 75 History of VTE Family history of VTE Factor V Leiden Prothrombin [id number] Lupus anticoagulant Anticardiolipin antibodies Elevated serum homocysteine Heparin-induced thrombocytopenia Other congenital or acquired thrombophilia Stroke (< 1 month) Elective arthroplasty Hip, pelvis, or leg fracture Acute spinal cord injury (< 1 month) Prophylaxis Regimen Total Risk Factor Score Risk Level Prophylaxis Regimen 0-1 Low Early ambulation 2 Moderate Order ONE of the following: *Sequential Compression Device (SCD) *Heparin 5000 units SQ BID 3-4 Higher Order ONE of the following medications: *Heparin 5000 units SQ TID *Enoxaparin/Lovenox 40 mg SQ daily (WT < 150 kg, CrCl > 30 mL/min) *Enoxaparin/Lovenox 30 mg SQ daily (WT < 150 kg, CrCl > 10-29 mL/min) *Enoxaparin/Lovenox 30 mg SQ BID (WT < 150 kg, CrCl > 30 mL/min) AND/OR *Sequential Compression Device (SCD) 5 or more Highest Order ONE of the following medications: *Heparin 5000 units SQ TID (Preferred with Epidurals) *Enoxaparin/Lovenox 40 mg SQ daily (WT < 150 kg, CrCl > 30 mL/min) *Enoxaparin/Lovenox 30 mg SQ daily (WT < 150 kg, CrCl > 10-29 mL/min) *Enoxaparin/Lovenox 30 mg SQ BID (WT < 150 kg, CrCl > 30 mL/min) AND *Sequential Compression Device (SCD) Assessment and Plan Problem List: (1) Pancreatitis, acute ICD Code: K85.90 - Acute pancreatitis without necrosis or infection, unspecified (2) Abdominal pain ICD Code: R10.9 - Unspecified abdominal pain Assessment and Plan 77 year-old man with Abdominal pain Acute pancreatitis CT abdomen noted and review by me without any acute finding Conservative treatment with aggressive IV fluid hydration, parenteral pain management, nothing by mouth except med Lipase was 448, monitor trend Mild acute renal failure Prerenal secondary to dehydration Conservative treatment with IV fluid hydrations, monitor BUN and creatinine and avoid all nephrotoxic drugs Hypertension Resume outpatient medication DVT prophylaxis: B-SCDs Code Status Full code Discussed Condition With Patient, ED physician Javy Pickett MD Oct 20, 2017 13:54
[2017-10-20] MEDS ORDERED: HYDROmorphone HCL PF 1 MG/ML VIAL IV PUSH PRN (17:00)
--- NOTE | 2017-10-20 17:03 | EKG ---
Date Performed: 10/20/2017 Time Performed: 08:02:27 PTAGE: 77 years EKG: Sinus rhythm Since previous tracing, no significant change noted NORMAL ECG PREVIOUS TRACING : 06/03/2017 09.44 DOCTOR: Lesli Hatfield Interpretating Date/Time 10/20/2017 17:02:34
[2017-10-20] MEDS: FAMOTIDINE 20 MG TAB PO SCH ×2 (21:00→23:07)
[2017-10-20] MEDS ORDERED: GLUCAGON 1 MG/ML VIAL OTHER PRN (21:00)
[2017-10-20] MEDS: SODIUM CHLORIDE 0.9% FLUSH 10 ML FLUSH IV FLUSH SCH (21:00)
[2017-10-20] MEDS: ATORVASTATIN 40 MG TAB PO SCH ×2 (21:00→23:07)
[2017-10-20] MEDS ORDERED: TEMAZEPAM 15 MG CAP PO PRN (21:00)
[2017-10-20] MEDS ORDERED: DEXTROSE 50% IN WATER 50 ML VIAL(D50) IV PUSH PRN (21:00)
[2017-10-21] MEDS: LACTATED RINGER'S 1000 ML INJ 1,000 ML IV SCH (03:49)
[2017-10-21 05:21] VITALS: BP 140/72; PULSE 78; RESP 17; TEMP 98; O2SAT 95
[2017-10-21] MEDS: ALPRAZolam 0.5 MG TAB PO PRN (07:23)
[2017-10-21] MEDS: KETOROLAC TROMETHAMINE 30 MG/ML (IVP) VIAL IVP PRN (07:24)
[2017-10-21 08:34] VITALS: BP 119/72; PULSE 64; RESP 22; TEMP 98.3; O2SAT 99
[2017-10-21] MEDS ORDERED: ASPIRIN EC 81 MG TABEC PO SCH (09:00)
[2017-10-21] MEDS ORDERED: LISINOPRIL 5 MG TAB PO SCH (09:00)
[2017-10-21] MEDS: SODIUM CHLORIDE 0.9% FLUSH 10 ML FLUSH IV FLUSH SCH (09:00)
[2017-10-21] MEDS: FAMOTIDINE 20 MG TAB PO SCH (09:26)
--- NOTE | 2017-10-21 11:28 | HHI.DCPOC ---
Discharge Care Plan Diagnosis: (1) Abdominal pain (2) Pancreatitis, acute Goals to Promote Your Health * To prevent worsening of your condition and complications * To maintain your health at the optimal level Directions to Meet Your Goals Take your medications as prescribed Follow your dietary instruction Follow activity as directed Keep your appointments as scheduled Take your immunizations and boosters as scheduled If your symptoms worsen call your PCP, if no PCP go to Urgent Care Center or Emergency Room Smoking is Dangerous to Your Health. Avoid second hand smoke Call the 24-hour hour crisis hotline for domestic abuse at Daniella Burgess PA-C Oct 21, 2017 11:28 am
--- NOTE | 2017-10-21 13:44 | HHI.PR ---
Subjective Remarks Follow-up abdominal pain/pancreatitis 10/21/17-patient seen and examined, reports significant improvement of abdominal pain. No acute event overnight Objective Vitals Vital Signs Date Time Temp Pulse Resp B/P (MAP) Pulse Ox O2 Delivery O2 Flow Rate FiO2 10/21/17 08:34 98.3 64 22 119/72 (88) 99 10/21/17 05:21 98.0 78 17 140/72 (94) 95 10/20/17 23:51 98.0 78 17 136/78 (97) 99 10/20/17 20:10 98.2 91 17 126/62 (83) 98 10/20/17 16:32 97.4 80 18 176/85 (115) 96 I/O 10/20/17 10/20/17 10/20/17 10/21/17 10/21/17 10/21/17 07:00 15:00 23:00 07:00 15:00 23:00 Intake Total 1000 ml 850 ml Output Total 120 ml Balance 1000 ml -120 ml 850 ml Intake IV Total 1000 ml 850 ml Output Urine Total 120 ml # Voids 1 # Bowel Movements 0 Result Diagram: 10/20/17 0800 10/20/17 0800 Imaging Last Impressions Abdomen/Pelvis CT 10/20/17 0744 Signed Impressions: Service Date/Time: Friday, October 20, 2017 08:22 - CONCLUSION: 1. Mild stranding of the mesentery within the left lateral abdomen. This suggests a mild mesenteritis. Otherwise, no acute abnormality. 2. Pneumobilia which is unchanged and suggests prior sphincterotomy. No dilatation of the biliary tree. Aakash Villalpando Jr., MD Objective Remarks GENERAL: NAD SKIN: Warm and dry. HEAD: Normocephalic. EYES: No scleral icterus. No injection or drainage. NECK: Supple, trachea midline. No JVD or lymphadenopathy. CARDIOVASCULAR: Regular rate and rhythm without murmurs, gallops, or rubs. RESPIRATORY: Breath sounds equal bilaterally. No accessory muscle use. GASTROINTESTINAL: Abdomen soft, non-tender, nondistended. MUSCULOSKELETAL: No cyanosis, or edema. BACK: Nontender without obvious deformity. No CVA tenderness. A/P Problem List: (1) Pancreatitis, acute ICD Code: K85.90 - Acute pancreatitis without necrosis or infection, unspecified Status: Resolved (2) Abdominal pain ICD Code: R10.9 - Unspecified abdominal pain Status: Resolved Assessment and Plan 77 year-old man with Abdominal pain-resolved Acute pancreatitis-resolved CT abdomen without any acute finding Improved with Conservative treatment with aggressive IV fluid hydration, parenteral pain management, Start Full liquid diet and he tolerated patient can be discharged home Lipase was 448, monitor trend Mild acute renal failure Prerenal secondary to dehydration Conservative treatment with IV fluid hydrations, monitor BUN and creatinine and avoid all nephrotoxic drugs Hypertension Continue outpatient medication DVT prophylaxis: B-SCDs Discharge Planning Discharge patient to home Condition on discharge: Improved Regular Diet as tolerated Ad Marli activity Rx written:none Follow-up with primary care physician in 1week Javy Pickett MD Oct 21, 2017 13:44
== END 2017-10-21 13:02 | disposition home or self-care (01) ==
LOC: NEPE 07:29 → NEDA 10:52 → NEPHCDU 11:57
PROVIDERS: ADMIT Hospitalist; ATTEND Hospitalist
DX: K85.90 Acute pancreatitis without necrosis or infection, unspecified (principal); N17.9 Acute kidney failure, unspecified; E86.0 Dehydration; I25.10 Atherosclerotic heart disease of native coronary artery without angina pectoris; I10 Essential (primary) hypertension; E11.9 Type 2 diabetes mellitus without complications; E78.00 Pure hypercholesterolemia, unspecified; I25.2 Old myocardial infarction; K21.9 Gastro-esophageal reflux disease without esophagitis; F41.9 Anxiety disorder, unspecified; M19.90 Unspecified osteoarthritis, unspecified site; Z79.899 Other long term (current) drug therapy; Z79.82 Long term (current) use of aspirin; Z85.46 Personal history of malignant neoplasm of prostate; Z96.642 Presence of left artificial hip joint
CPT/HCPCS: 74176; 80053; 82948; 83690; 85025; 85610; 85730; 93005; 96361; 96374; 96375; 96376; 99285; G0378; J1170; J1885; J2405; J7030; J7120